=== PATIENT | male | born 1960 | race Caucasian/White ===

== ENCOUNTER → 2018-06-18 09:14 | Outpatient (CLI) | payer BC, SELFPAY ==
[2018-06-18 09:31] LABS: Abs Immature Grans 0.02 k/cumm (0.0-0.09); Absolute Basophil Count 0.05 k/cumm (0.0-0.2); Absolute Eosinophil Count 0.25 k/cumm (0.0-0.7); Absolute Lymphocyte Count 2.23 k/cumm (1.2-3.4); Absolute Monocyte Count 0.76 k/cumm (0.11-0.7); Absolute Neutrophil Count 4.66 k/cumm (1.2-6.7); Basophils % 0.6; Eosinophils % 3.1; HCT 37.9 % (40.0-50.0); Immature Grans % 0.3; Mean Corp. HGB Concentration 34.3 g/dL (32.0-36.0); Mean Corpuscular Hemoglobin 31.9 pg (27.0-33.0); Mean Corpuscular Volume 92.9 fL (80-95); Mean Platelet Volume 8.7 fL (8.0-11.0); Monocytes % 9.5; Neutrophils % 58.5; Platelet Count 311 x1000/uL (130-400); RBC 4.08 m/cumm (4.50-6.00); White Blood Cell Count 7.97 k/cumm (4.4-10.8)
[2018-06-18 10:28] LABS: Anion Gap 6.9 mmol/L (3-11); BUN 11 mg/dL (7-18); CO2 27.1 mmol/L (21.0-32.0); CREATININE 0.85 mg/dL (0.70-1.30); Calcium 8.3 mg/dL (8.5-10.1); Chloride 103 mmol/L (98-107); Glucose 103 mg/dL (70-100); Potassium 4.8 mmol/L (3.5-5.1); Sodium 137 mmol/L (136-145)
== END ==
PROVIDERS: PCP Student in an Organized Health Care Education/Training Program; Visit Provider Student in an Organized Health Care Education/Training Program
DX: I10 Essential (primary) hypertension (principal); K31.9 Disease of stomach and duodenum, unspecified; Z01.818 Encounter for other preprocedural examination
CPT/HCPCS: 36415; 80048; 85025

== ENCOUNTER → 2018-06-28 07:22 | Outpatient (REF) | payer BC, SELFPAY | LOC: LBN 07:22 | PROVIDERS: PCP Student in an Organized Health Care Education/Training Program; Visit Provider Student in an Organized Health Care Education/Training Program | DX: K31.9 Disease of stomach and duodenum, unspecified (principal); Z87.19 Personal history of other diseases of the digestive system | CPT/HCPCS: 82270 ==

== ENCOUNTER 2018-08-19 15:44 | Outpatient (CLI) | payer BC, SELFPAY ==
--- NOTE | 2018-08-19 15:40 | DI.RAD_ITS ---
SYMPTOM/DIAGNOSIS: WORSENING BACK PAIN, M54.5, PRE SURGICAL LUMBAR SPINE: AP, lateral and bilateral oblique views. There are five lumbar type vertebral bodies. There is a right convex curvature of the lower thoracic and lumbar spine. No spondylolysis or spondylolisthesis is seen. There is disc space narrowing at all levels of the lumbar spine. Vacuum discs are seen at L 1-2 and L 2-3. Degenerative changes of the facets are present. No acute fractures or subluxations are appreciated. There is calcification of the abdominal aorta noted. IMPRESSION: Moderately severe degenerative changes in the lumbar spine.
== END 2018-08-19 16:04 ==
PROVIDERS: PCP Student in an Organized Health Care Education/Training Program; Visit Provider Student in an Organized Health Care Education/Training Program
DX: M54.5 Low back pain (principal); M51.36 Other intervertebral disc degeneration, lumbar region; Z01.818 Encounter for other preprocedural examination
CPT/HCPCS: 72110

== ENCOUNTER 2018-10-11 08:30 | Emergency (ER) | payer BC, SELFPAY ==
[2018-10-11 08:47] VITALS: BP 138/79; PULSE 60; RESP 16; TEMP 37; O2SAT 98
--- NOTE | 2018-10-11 08:55 | DI.RAD_ITS ---
SYMPTOM/DIAGNOSIS: COUGH AND FEVER PA AND LATERAL CHEST: Comparison is made with 27 April 2015. Heart size is normal. The aorta appears normal in diameter. The lungs are clear. There are old left rib fractures. No infiltrate or effusion seen. IMPRESSION: No acute abnormality.
--- NOTE | 2018-10-11 08:58 | ED.GENADUL_ITS ---
Discharge Plan Disposition Patient Disposition: HOME Condition: Improving Discharge Details Chief Complaint: RespSymp Clinical Impression: Acute bronchitis with bronchospasm Primary Care Provider: Jaymie Ramirez ED Provider: Paul Marquez Home Meds and New Rx's Prescriptions: New prednisone 20 mg tablet 40 mg PO DAILY 5 Days Qty: 10 RF: 0 azithromycin 500 mg tablet See Label Instructions .ROUTE .COMPLEX Qty: 6 RF: 0 No Action cetirizine 10 MG tablet 10 mg PO DAILY PRNRF: 0 ibuprofen 200 MG capsule 800 mg PO Q4H PRN RF: 0 diphenhydramine HCl [Allergy (diphenhydramine)] 12.5 MG/5 ML liquid 12.5 mg PO DAILY Qty: 2 RF: 0 esomeprazole magnesium [Nexium 24HR] 20 MG tablet,delayed release (DR/EC) 20 mg PO DAILY RF: 0 albuterol sulfate [ProAir HFA] 8.5 GM HFA aerosol inhaler 2 puff Inhalation Q6H PRN Qty: 1 RF: 6 terazosin 2 MG capsule 4 mg PO HS Qty: 180 RF: 3 atorvastatin [Lipitor] 20 MG tablet 20 mg PO DAILY Qty: 90 RF: 3 sildenafil [Viagra] 100 MG tablet 100 mg PO DAILY PRNQty: 12 RF: 5 venlafaxine 75 MG tablet extended release 24hr 225 mg PO DAILY Qty: 90 RF: 3 lisinopril 20 MG tablet 20 mg PO DAILY Qty: 90 RF: 3 Discharge Instructions Instructions: Acute Bronchitis (ED) Additional Instructions: Home to rest. May continue your albuterol inhaler every 4 hours if needed, return if you are using it with increased frequency or develop shortness of breath. Please take medications as prescribed. Follow-up with regular doctor if not improving in 5 days time. Return to the emergency department for any acute concerns. Medical Decision Making 58-year-old male presents from home with 7-14 days of cough, congestion, some increased use of inhaler. He has noted subjective fever and chills. He denies chest pain. He states that he has otherwise recently been well. He arrives with normal vital signs, exam reveals wheeze and rhonchi throughout. Differential diagnosis includes pneumonia, exacerbation of reactive airway disease, bronchitis. Given DuoNeb and referred for chest XR. This does not reveal focal consolidation. Patient remains without acute complaint. His oxygenation is normal. I do feel benefit from a course of antibiotics to cover atypical pathogens as well as a burst of oral steroids. Discussed with him home management as well as return precautions HPI General Mode of arrival: ambulatory . Date/Time Provider Initiated Documentation: 10/11/18 08:51 . Limitations to Documentation: no limitations . Information obtained by: patient . History of Present Illness 58 year old M presents to the emergency department with the chief complaint of Cough, congestion, fever over days to week, described as moderate, Quality is described as dull, and is localized to the chest. Patient reports no radiation. Patient started experiencing this day(s) and it has been constant. No relieving factors improve symptom(s), No exacerbating factors reported . Patient notes fever/chills and other (Congestion). Patient did receive the following treatments prior to arrival, other (Albuterol inhale) Related Data Home Medications Medication Instructions Recorded Confirmed cetirizine 10 mg PO DAILY PRN tab-cap 04/26/14 10/11/18 ibuprofen 800 mg PO Q4H PRN tab-cap 09/10/16 10/11/18 diphenhydramine HCl [Allergy] 12.5 mg PO DAILY #2 05/14/17 10/11/18 esomeprazole magnesium [Nexium 20 mg PO DAILY 05/14/17 10/11/18 24hr] albuterol sulfate [Proair Hfa] 2 puff INHALATION Q6H PRN #1 puff 09/22/17 terazosin 4 mg PO HS #180 tab-cap 10/23/17 10/11/18 atorvastatin [Lipitor] 20 mg PO DAILY #90 tab 01/09/18 10/11/18 sildenafil [Viagra] 100 mg PO DAILY PRN #12 tab 01/19/18 10/11/18 venlafaxine 225 mg PO DAILY #90 tab-cap 05/11/18 10/11/18 lisinopril 20 mg PO DAILY #90 tab-cap 07/13/18 10/11/18 azithromycin See Label Instructions .ROUTE 10/11/18 .COMPLEX #6 tab prednisone 40 mg PO DAILY 5 Days #10 tab 10/11/18 Previous Rx's Medication Instructions Recorded albuterol sulfate [Proair Hfa] 2 puff INHALATION Q6H PRN #1 puff 09/22/17 terazosin 4 mg PO HS #180 tab-cap 10/23/17 atorvastatin [Lipitor] 20 mg PO DAILY #90 tab 01/09/18 venlafaxine 225 mg PO DAILY #90 tab-cap 05/11/18 lisinopril 20 mg PO DAILY #90 tab-cap 07/13/18 azithromycin See Label Instructions .ROUTE 10/11/18 .COMPLEX #6 tab prednisone 40 mg PO DAILY 5 Days #10 tab 10/11/18 Allergies Allergy/AdvReac Type Severity Reaction Status Date / Time Penicillins Allergy Intermediate rash Verified 08/19/18 15:11 General Stated Complaint: RespSymp MANINDER: 3 Review of Systems Review of Systems 6 systems reviewed and otherwise - [facility] Family History Mother No problems noted. Father No problems noted. Sister No problems noted. Sister No problems noted. Medical History ACL tear (03/30/14) Acne (04/12/09) Degenerative joint disease (04/12/09) Depression (11/20/05) Depressive disorder (10/22/10) Diverticula of colon (12/28/09) Erectile dysfunction (11/20/05) Head ache (03/17/01) Hyperlipidemia (03/17/01) Hyperplastic polyp of large intestine (09/17/06) Hypertension (05/26/09) Hypogonadism, male (11/20/05) Low back pain (04/24/09) Obesity (03/17/01) Peptic ulcer disease (08/17/02) Precancerous skin lesion (11/14/10) Tear of PCL (posterior cruciate ligament) of knee (03/30/14) Social History Smoking/Tobacco Use Status: Former Tobacco Use Surgical History Arthroplasty of knee (~2013) Cholecystectomy (11/12/06) Repair of umbilical hernia (08/31/10) Right small ginfer cyst (05/01/16) Vasectomy (04/28/07) cubital/carpal tunnel release (11/03/14) disc repair L4-5 (04/18/00) elbow repair right (09/17/07) left elbow fasciotomy (04/23/07) perianal fistula repair (09/25/10) tooth extraction (10/01/09) Exam Narrative Exam Narrative: GEN: awake, alert, oriented 3. Pleasant, well groomed, interactive. HEAD: Normocephalic, atraumatic ENT: Mucous membranes moist, oropharynx unremarkable, External ear exam unremarkable EYES: PERRL, EOMI NECK: Full ROM, no NIKOLAY, no menigismus CHEST/RESP: Nontender, bilateral end expiratory wheeze, cough noted, scant rhonchi left base CARDIOVASCULAR: RRR, no murmur, rub haley. 2+ Rad pulse bilateral ABDOMEN: Soft, nontender, no mass. +Bowel sounds EXT: Full ROM, no edema, no rash Neuro: Grossly normal neurologic exam, conversant, interactive. Psych: Speech fluent, thoughts congruent, affect normal Course Vital Signs Temperature 37.0 C 10/11/18 08:47 Pulse 60 10/11/18 08:47 Respiratory Rate 16 10/11/18 08:47 Blood Pressure 138/79 10/11/18 08:47 Pulse Oximetry 98 10/11/18 08:47 Temperature 37.0 C 10/11/18 08:47 Temperature Source Temporal Artery Scan 10/11/18 08:47 Pulse 60 10/11/18 08:47 Respiratory Rate 16 10/11/18 08:47 Respiratory Effort Non-Labored 10/11/18 08:49 Blood Pressure 138/79 10/11/18 08:47 Blood Pressure Position Sitting 10/11/18 08:47 Pulse Oximetry 98 10/11/18 08:47 Oxygen Delivery Method Room Air 10/11/18 08:47 Oxygen Flow Rate 0 10/11/18 08:47 Pain Level 6 10/11/18 08:47
[2018-10-11] MEDS: predniSONE 20 MG TAB 60 MG PO (09:03)
[2018-10-11 09:04] VITALS: PULSE 60; RESP 16; RESP 4; O2SAT 98
[2018-10-11] MEDS: Albuterol/Ipratropium 3 ML UPD VIAL UPD (09:04)
--- NOTE | 2018-10-11 09:18 | DI.VRAD_ITS ---
EXAM: XR Chest, 2 Views EXAM DATE/TIME: 10/11/2018 8:56 AM CLINICAL HISTORY: 58 years old, male; Signs and symptoms; Cough and fever TECHNIQUE: XR of the chest, 2 views. COMPARISON: CR ABD FLAT UPRIGHT PA CHEST 04/27/2015 11:12 AM FINDINGS: Lungs: COPD and mild interstitial prominence, without acute air space disease. Pleural space: No pleural effusion. Heart/Mediastinum: Normal configuration of the heart. Bones/joints: Mild degenerative change. When correlating with the previous study, no significant interval changes are present. IMPRESSION: COPD and mild interstitial prominence, without acute air space disease. Dictated and Authenticated by: Todd Mccain MD. Ordering:CLAUDIA TOTH MD
[2018-10-11 09:34] VITALS: PULSE 65; RESP 16; RESP 4; O2SAT 98
[2018-10-11] MEDS: Albuterol HFA 8 GM 60 PUFF INH IH (09:44)
[2018-10-11] MEDS: Inhaler, Assist Device 1 EACH MC (09:46)
== END 2018-10-11 09:37 | disposition home or self-care (01) ==
LOC: ER 09:27
PROVIDERS: Emergency Provider Emergency Medicine; PCP Student in an Organized Health Care Education/Training Program
DX: J20.9 Acute bronchitis, unspecified (principal); Z87.891 Personal history of nicotine dependence; I10 Essential (primary) hypertension
CPT/HCPCS: 94640; 99283; 71046; J7512; J7620

== ENCOUNTER 2018-12-21 01:08 | Outpatient (CLI) | payer BC, SELFPAY ==
--- NOTE | 2018-12-21 08:54 | DI.MRI_ITS ---
SYMPTOMS/DIAGNOSIS: LISTHESIS L2-3 AND L3-4, LOW BACK PAIN, M54.5, RADICULOPATHY, M54.16, MR3.10, BILATERAL LEG NUMBNESS, ? SPINAL STENOSIS MRI OF THE LUMBAR SPINE: T1, T2 and STIR sagittal, T1 coronal and T1 and T2 axial sequences were performed. Comparison is made with plain films dated August,, which showed severe degenerative disc changes, as well as scoliosis. There has been a previous fusion at L4-5. At L1-2, there is mild broad-based disc bulging. At L2-3, there are more prominent endplate osteophytes. There is left neural foraminal narrowing. At L3-4, there is a loss of disc height and prominent broad-based disc osteophytes. There are facet degenerative changes combined to produce moderate central canal stenosis. There is bilateral neural foraminal narrowing, left greater than right. At L4-5, there has been a previous disc fusion. There is mild bilateral neural foraminal narrowing but no central canal stenosis. There is mild disc bulging at L5-S1. IMPRESSION: Postsurgical and degenerative changes. There is central canal stenosis at L3-4 of moderate degree. No disc herniation is seen.
== END 2018-12-21 01:28 ==
PROVIDERS: PCP Student in an Organized Health Care Education/Training Program; Visit Provider Thoracic Surgery (Cardiothoracic Vascular Surgery)
DX: M54.5 Low back pain (principal); M54.16 Radiculopathy, lumbar region; R20.0 Anesthesia of skin; M48.061 Spinal stenosis, lumbar region without neurogenic claudication
CPT/HCPCS: 72148

== ENCOUNTER 2019-01-01 13:05 | Emergency (ER) | payer BC, SELFPAY ==
--- NOTE | 2019-01-01 13:06 | W.ED.GENAD ---
Discharge Plan Disposition Patient Disposition: HOME Condition: Stable Discharge Details Chief Complaint: RespSymp Clinical Impression: Reactive airway disease, Cough Primary Care Provider: Jaymie aRmirez ED Provider: Abelardo Dominique Home Meds and New Rx's Prescriptions: New prednisone 20 mg tablet 60 mg PO DAILY 5 Days Qty: 15 RF: 0 doxycycline hyclate 100 mg tablet 100 mg PO BID Qty: 14 RF: 0 Continued cetirizine 10 MG tablet 10 mg PO DAILY PRNRF: 0 ibuprofen 200 MG capsule 800 mg PO Q4H PRN RF: 0 diphenhydramine HCl [Allergy (diphenhydramine)] 12.5 MG/5 ML liquid 12.5 mg PO DAILY PRNQty: 2 RF: 0 Nexium 24HR 20 MG tablet,delayed release (DR/EC) 20 mg PO DAILY RF: 0 ProAir HFA 8.5 GM HFA aerosol inhaler 2 puff Inhalation Q6H PRN Qty: 1 RF: 6 atorvastatin [Lipitor] 20 MG tablet 20 mg PO DAILY Qty: 90 RF: 3 sildenafil [Viagra] 100 MG tablet 100 mg PO DAILY PRNQty: 12 RF: 5 lisinopril 20 MG tablet 20 mg PO DAILY Qty: 90 RF: 3 terazosin 2 mg capsule 4 mg PO HS Qty: 180 RF: 3 venlafaxine 75 mg tablet extended release 24hr 225 mg PO DAILY Qty: 90 RF: 3 Discharge Instructions Additional Instructions: You are being treated with steroids and an antibiotic for possible infection. If this doesn't clear your cough in a week you should follow up with your primary care provider to discuss changing your lisinopril. If you feel you are having significant worsening breathing, are feeling significantly more ill or have new symptoms such as high fevers or abdominal pain Medical Decision Making 58 yo male with hx of reactive airway disease, former smoker, htn, hld, who comes in with complaint of cough. He states he was seen here in September with cough and did improve slightly with a z pack per pt. He has had a lingering cough and feels it worsened in the past few dyas. No known fevers, no travel. He has pain with palpation to right anterior chest otherwise no chest pain, no diaphoresis or n/v. On exam he appears well in no distress speaking in full sentences. He has mild wheezing at the bases bilaterally otherwise clear lungs. He is on lisinopril so this could be causing his lingering cough. Given his wheezing I will tx as possible copd exacerbation given his smoking hx and advised he f/u with pcp if not better in a week and discuss changing the lisinopril. He was given return precautions. Given well appearance and no fever do not feel labs or imaging indicated Differential Diagnosis copd, asthma, bronchitis, lisinopril cough HPI General Mode of arrival: ambulatory. Date/Time Provider Initiated Documentation: 01/01/19 13:06. Limitations to Documentation: no limitations. Information obtained by: patient. History of Present Illness 58 year old M presents to the emergency department with the chief complaint of cough, described as moderate, Patient started experiencing this month(s) (3) and it has been constant. No relieving factors improve symptom(s), No exacerbating factors reported . Patient notes no other symptoms.. Patient did receive the following treatments prior to arrival, none Related Data Home Medications Medication Instructions Recorded Confirmed cetirizine 10 mg PO DAILY PRN tab-cap 04/26/14 01/01/19 ibuprofen 800 mg PO Q4H PRN tab-cap 09/10/16 01/01/19 Nexium 24HR 20 mg PO DAILY 05/14/17 01/01/19 diphenhydramine HCl [Allergy 12.5 mg PO DAILY PRN #2 05/14/17 01/01/19 (diphenhydramine)] ProAir HFA 2 puff INHALATION Q6H PRN #1 puff 09/22/17 01/01/19 atorvastatin [Lipitor] 20 mg PO DAILY #90 tab 01/09/18 01/01/19 sildenafil [Viagra] 100 mg PO DAILY PRN #12 tab 01/19/18 10/11/18 lisinopril 20 mg PO DAILY #90 tab-cap 07/13/18 01/01/19 terazosin 2 mg capsule 4 mg PO HS #180 tab-cap 12/04/18 01/01/19 venlafaxine ER 75 mg 225 mg PO DAILY #90 tab-cap 12/04/18 01/01/19 tablet,extended release 24 hr doxycycline hyclate 100 mg PO BID #14 tab 01/01/19 prednisone 60 mg PO DAILY 5 Days #15 tab 01/01/19 Previous Rx's Medication Instructions Recorded ProAir HFA 2 puff INHALATION Q6H PRN #1 puff 09/22/17 atorvastatin [Lipitor] 20 mg PO DAILY #90 tab 01/09/18 lisinopril 20 mg PO DAILY #90 tab-cap 07/13/18 terazosin 2 mg capsule 4 mg PO HS #180 tab-cap 12/04/18 venlafaxine ER 75 mg 225 mg PO DAILY #90 tab-cap 12/04/18 tablet,extended release 24 hr doxycycline hyclate 100 mg PO BID #14 tab 01/01/19 prednisone 60 mg PO DAILY 5 Days #15 tab 01/01/19 Allergies Allergy/AdvReac Type Severity Reaction Status Date / Time Penicillins Allergy Intermediate rash Verified 01/01/19 13:13 General MANINDER: 3 Review of Systems Review of Systems All systems reviewed & are unremarkable except as noted in HPI and below Constitutional Denies weakness ENT Denies change in voice Cardiovascular Denies dyspnea Respiratory Denies dyspnea Gastrointestinal Denies abdominal pain, Denies nausea and Denies vomiting Genitourinary Denies dysuria Musculoskeletal Denies joint swelling Integumentary/Breasts Denies rash Neurologic Denies weakness Endocrine Denies heat intolerance Allergic/Immunologic Denies urticaria [facility] Medical History ACL tear (03/30/14) Acne (04/12/09) Degenerative joint disease (04/12/09) Depression (11/20/05) Depressive disorder (10/22/10) Diverticula of colon (12/28/09) Erectile dysfunction (11/20/05) Head ache (03/17/01) Hyperlipidemia (03/17/01) Hyperplastic polyp of large intestine (09/17/06) Hypertension (05/26/09) Hypogonadism, male (11/20/05) Low back pain (04/24/09) Obesity (03/17/01) Peptic ulcer disease (08/17/02) Precancerous skin lesion (11/14/10) Tear of PCL (posterior cruciate ligament) of knee (03/30/14) Surgical History Arthroplasty of knee (~2013) Cholecystectomy (11/12/06) Repair of umbilical hernia (10/15/10) Right small ginfer cyst (05/01/16) Vasectomy (04/28/07) cubital/carpal tunnel release (11/03/14) disc repair L4-5 (04/18/00) elbow repair right (09/17/07) left elbow fasciotomy (04/23/07) perianal fistula repair (09/25/10) tooth extraction (10/01/09) Family History Mother No problems noted. Father No problems noted. Sister No problems noted. Sister No problems noted. Social History Smoking and Tabacco status: Former Tobacco Use Exam Const General: no acute distress Orientation: alert HENMT Head: normal to inspection Ears: external ears normal General nose exam: external nose normal Mouth: moist mucous membranes Eyes General: appearance normal, both eyes and all related structures Neck Neck: normal visual inspection Resp Effort & Inspection: normal respiratory effort and able to speak in complete sentences Cardio Rate: regular rate Skin General skin exam: no rashes or lesions noted Neuro General: alert and oriented x3 Extrem General: normal to inspection Psych Mental Status: mental status grossly normal
[2019-01-01 13:08] VITALS: BP 132/91; PULSE 77; RESP 16; TEMP 37; O2SAT 97
--- NOTE | 2019-01-01 13:26 | ED.GENADUL_ITS ---
Discharge Plan Disposition Patient Disposition: HOME Condition: Stable Discharge Details Chief Complaint: RespSymp Clinical Impression: Reactive airway disease, Cough Primary Care Provider: Jaymie Ramirez ED Provider: Abelardo Dominique Home Meds and New Rx's Prescriptions: New prednisone 20 mg tablet 60 mg PO DAILY 5 Days Qty: 15 RF: 0 doxycycline hyclate 100 mg tablet 100 mg PO BID Qty: 14 RF: 0 Continued cetirizine 10 MG tablet 10 mg PO DAILY PRNRF: 0 ibuprofen 200 MG capsule 800 mg PO Q4H PRN RF: 0 diphenhydramine HCl [Allergy (diphenhydramine)] 12.5 MG/5 ML liquid 12.5 mg PO DAILY PRNQty: 2 RF: 0 Nexium 24HR 20 MG tablet,delayed release (DR/EC) 20 mg PO DAILY RF: 0 ProAir HFA 8.5 GM HFA aerosol inhaler 2 puff Inhalation Q6H PRN Qty: 1 RF: 6 atorvastatin [Lipitor] 20 MG tablet 20 mg PO DAILY Qty: 90 RF: 3 sildenafil [Viagra] 100 MG tablet 100 mg PO DAILY PRNQty: 12 RF: 5 lisinopril 20 MG tablet 20 mg PO DAILY Qty: 90 RF: 3 terazosin 2 mg capsule 4 mg PO HS Qty: 180 RF: 3 venlafaxine 75 mg tablet extended release 24hr 225 mg PO DAILY Qty: 90 RF: 3 Discharge Instructions Additional Instructions: You are being treated with steroids and an antibiotic for possible infection. If this doesn't clear your cough in a week you should follow up with your primary care provider to discuss changing your lisinopril. If you feel you are having significant worsening breathing, are feeling significantly more ill or have new symptoms such as high fevers or abdominal pain Medical Decision Making 58 yo male with hx of reactive airway disease, former smoker, htn, hld, who comes in with complaint of cough. He states he was seen here in September with cough and did improve slightly with a z pack per pt. He has had a lingering cough and feels it worsened in the past few dyas. No known fevers, no travel. He has pain with palpation to right anterior chest otherwise no chest pain, no diaphoresis or n/v. On exam he appears well in no distress speaking in full sentences. He has mild wheezing at the bases bilaterally otherwise clear lungs. He is on lisinopril so this could be causing his lingering cough. Given his wheezing I will tx as possible copd exacerbation given his smoking hx and advised he f/u with pcp if not better in a week and discuss changing the lisinopril. He was given return precautions. Given well appearance and no fever do not feel labs or imaging indicated Differential Diagnosis copd, asthma, bronchitis, lisinopril cough HPI General Mode of arrival: ambulatory . Date/Time Provider Initiated Documentation: 01/01/19 13:06 . Limitations to Documentation: no limitations . Information obtained by: patient . History of Present Illness 58 year old M presents to the emergency department with the chief complaint of cough, described as moderate, Patient started experiencing this month(s) (3) and it has been constant. No relieving factors improve symptom(s), No exacerbating factors reported . Patient notes no other symptoms.. Patient did receive the following treatments prior to arrival, none Related Data Home Medications Medication Instructions Recorded Confirmed cetirizine 10 mg PO DAILY PRN tab-cap 04/26/14 01/01/19 ibuprofen 800 mg PO Q4H PRN tab-cap 09/10/16 01/01/19 Nexium 24HR 20 mg PO DAILY 05/14/17 01/01/19 diphenhydramine HCl [Allergy 12.5 mg PO DAILY PRN #2 05/14/17 01/01/19 (diphenhydramine)] ProAir HFA 2 puff INHALATION Q6H PRN #1 puff 09/22/17 01/01/19 atorvastatin [Lipitor] 20 mg PO DAILY #90 tab 01/09/18 01/01/19 sildenafil [Viagra] 100 mg PO DAILY PRN #12 tab 01/19/18 10/11/18 lisinopril 20 mg PO DAILY #90 tab-cap 07/13/18 01/01/19 terazosin 2 mg capsule 4 mg PO HS #180 tab-cap 12/04/18 01/01/19 venlafaxine ER 75 mg 225 mg PO DAILY #90 tab-cap 12/04/18 01/01/19 tablet,extended release 24 hr doxycycline hyclate 100 mg PO BID #14 tab 01/01/19 prednisone 60 mg PO DAILY 5 Days #15 tab 01/01/19 Previous Rx's Medication Instructions Recorded ProAir HFA 2 puff INHALATION Q6H PRN #1 puff 09/22/17 atorvastatin [Lipitor] 20 mg PO DAILY #90 tab 01/09/18 lisinopril 20 mg PO DAILY #90 tab-cap 07/13/18 terazosin 2 mg capsule 4 mg PO HS #180 tab-cap 12/04/18 venlafaxine ER 75 mg 225 mg PO DAILY #90 tab-cap 12/04/18 tablet,extended release 24 hr doxycycline hyclate 100 mg PO BID #14 tab 01/01/19 prednisone 60 mg PO DAILY 5 Days #15 tab 01/01/19 Allergies Allergy/AdvReac Type Severity Reaction Status Date / Time Penicillins Allergy Intermediate rash Verified 01/01/19 13:13 General MANINDER: 3 Review of Systems Review of Systems All systems reviewed & are unremarkable except as noted in HPI and below Constitutional Denies weakness ENT Denies change in voice Cardiovascular Denies dyspnea Respiratory Denies dyspnea Gastrointestinal Denies abdominal pain, Denies nausea and Denies vomiting Genitourinary Denies dysuria Musculoskeletal Denies joint swelling Integumentary/Breasts Denies rash Neurologic Denies weakness Endocrine Denies heat intolerance Allergic/Immunologic Denies urticaria [facility] Medical History ACL tear (03/30/14) Acne (04/12/09) Degenerative joint disease (04/12/09) Depression (11/20/05) Depressive disorder (10/22/10) Diverticula of colon (12/28/09) Erectile dysfunction (11/20/05) Head ache (03/17/01) Hyperlipidemia (03/17/01) Hyperplastic polyp of large intestine (09/17/06) Hypertension (05/26/09) Hypogonadism, male (11/20/05) Low back pain (04/24/09) Obesity (03/17/01) Peptic ulcer disease (08/17/02) Precancerous skin lesion (11/14/10) Tear of PCL (posterior cruciate ligament) of knee (03/30/14) Surgical History Arthroplasty of knee (~2013) Cholecystectomy (11/12/06) Repair of umbilical hernia (10/15/10) Right small ginfer cyst (05/01/16) Vasectomy (04/28/07) cubital/carpal tunnel release (11/03/14) disc repair L4-5 (04/18/00) elbow repair right (09/17/07) left elbow fasciotomy (04/23/07) perianal fistula repair (09/25/10) tooth extraction (10/01/09) Family History Mother No problems noted. Father No problems noted. Sister No problems noted. Sister No problems noted. Social History Smoking and Tabacco status: Former Tobacco Use Exam Const General: no acute distress Orientation: alert HENMT Head: normal to inspection Ears: external ears normal General nose exam: external nose normal Mouth: moist mucous membranes Eyes General: appearance normal, both eyes and all related structures Neck Neck: normal visual inspection Resp Effort & Inspection: normal respiratory effort and able to speak in complete sentences Cardio Rate: regular rate Skin General skin exam: no rashes or lesions noted Neuro General: alert and oriented x3 Extrem General: normal to inspection Psych Mental Status: mental status grossly normal
--- NOTE | 2019-01-04 09:28 | PDOC.ERCMPRO ---
Care Management Progress Note 01/04-Dr. Dominique requested assistance with a PCP (Jena) f/u in 1-2 weeks for cough. Referral faxed to [facility] this am.
== END 2019-01-01 13:36 | disposition home or self-care (01) ==
PROVIDERS: Emergency Provider Emergency Medicine; PCP Student in an Organized Health Care Education/Training Program
DX: R05 Cough (principal); J45.909 Unspecified asthma, uncomplicated; R07.89 Other chest pain; I10 Essential (primary) hypertension; Z87.891 Personal history of nicotine dependence
CPT/HCPCS: 99283

== ENCOUNTER 2019-02-04 09:23 | Outpatient (CLI) | payer BC, SELFPAY ==
[2019-02-04 11:45] LABS: ALT 36 U/L (12-78); AST 26 U/L (15-37); Albumin 3.9 g/dL (3.4-5.0); Alkaline Phosphatase 108 U/L (46-116); Anion Gap 7.8 mmol/L (3-11); BUN 12 mg/dL (7-18); Bilirubin, Total 0.4 mg/dL (0.2-1.0); CO2 29.2 mmol/L (21.0-32.0); Calcium 9.6 mg/dL (8.5-10.1); Chloride 99 mmol/L (98-107); Cholesterol 159 mg/dL (50-200); Glucose 110 mg/dL (70-100); HDL Cholesterol 40 mg/dL (40-60); LDL CHOLESTEROL 106 mg/dL (<100); Potassium 4.7 mmol/L (3.5-5.1); Sodium 136 mmol/L (136-145); Total Protein 7.5 g/dL (6.4-8.2); Triglyceride 64 mg/dL (30-150)
== END 2019-02-04 09:43 ==
PROVIDERS: PCP Student in an Organized Health Care Education/Training Program; Visit Provider Student in an Organized Health Care Education/Training Program
DX: Z13.220 Encounter for screening for lipoid disorders (principal); K71.9 Toxic liver disease, unspecified
CPT/HCPCS: 36415; 80053; 80061; 83721

== ENCOUNTER 2019-02-08 09:47 | Emergency (ER) | payer BC, SELFPAY ==
[2019-02-08 09:49] VITALS: BP 118/72; PULSE 88; RESP 18; TEMP 36; O2SAT 96
--- NOTE | 2019-02-08 10:20 | ED.GENADUL_ITS ---
Discharge Plan Disposition Patient Disposition: HOME Condition: Stable Discharge Details Chief Complaint: RespSymp Clinical Impression: Wheezing, URI (upper respiratory infection) Primary Care Provider: Jaymie Ramirez ED Provider: Abelardo Dominique Home Meds and New Rx's Prescriptions: New prednisone 20 mg tablet 60 mg PO DAILY Qty: 15 RF: 0 albuterol sulfate 90 mcg/actuation HFA aerosol inhaler 2 puff IH QID PRN (Reason: shortness of breath) Qty: 18 RF: 0 Continued cetirizine 10 MG tablet 10 mg PO DAILY PRNRF: 0 ibuprofen 200 MG capsule 800 mg PO Q4H PRN RF: 0 diphenhydramine HCl [Allergy (diphenhydramine)] 12.5 MG/5 ML liquid 12.5 mg PO DAILY PRNQty: 2 RF: 0 Nexium 24HR 20 MG tablet,delayed release (DR/EC) 20 mg PO DAILY RF: 0 ProAir HFA 8.5 GM HFA aerosol inhaler 2 puff Inhalation Q6H PRN Qty: 1 RF: 6 sildenafil [Viagra] 100 MG tablet 100 mg PO DAILY PRNQty: 12 RF: 5 lisinopril 20 MG tablet 20 mg PO DAILY Qty: 90 RF: 3 terazosin 2 mg capsule 4 mg PO HS Qty: 180 RF: 3 venlafaxine 75 mg tablet extended release 24hr 225 mg PO DAILY Qty: 90 RF: 3 atorvastatin [Lipitor] 20 mg tablet 20 mg PO DAILY Qty: 90 RF: 3 doxycycline hyclate 100 mg tablet 100 mg PO BID Qty: 14 RF: 0 Discharge Instructions Instructions: Wheezing (ED) Additional Instructions: follow up with your primary care provider as scheduled next week If you have worsening shortness of breath despite the medications or feel more ill return to the emergency department for reeassement Medical Decision Making 58 yo male who is a former smoker and not diagnosed with copd, who comes in with cough for a few days and subjective fevers. Denies chest pain, recent travel or n/v. He is speaking in full sentences on exam in no distress. He has no pedal edema or jvd to suggest chf. HE has diffuse wheezing on expiration on exam that is likely from RAD and suspect he has undiagnosed copd. Given well appearance and normal vitals doubt pna and do not feel xray indicated. Will tx with neb, steroids and given increased productive cough as well tx with abx pt feels much better and wheezing as resolved on repeat exam. Will d/c home, advised f/u with pcp and return precautions given Differential Diagnosis copd, uri, influenza HPI General Mode of arrival: ambulatory . Date/Time Provider Initiated Documentation: 02/08/19 10:06 . Limitations to Documentation: no limitations . Information obtained by: patient . History of Present Illness 58 year old M presents to the emergency department with the chief complaint of cough, described as moderate, Patient started experiencing this day(s) (2) and it has been constant. No relieving factors improve symptom(s), No exacerbating factors reported . Patient did receive the following treatments prior to arrival, none Related Data Home Medications Medication Instructions Recorded Confirmed cetirizine 10 mg PO DAILY PRN tab-cap 04/26/14 01/01/19 ibuprofen 800 mg PO Q4H PRN tab-cap 09/10/16 01/01/19 Nexium 24HR 20 mg PO DAILY 05/14/17 01/01/19 diphenhydramine HCl [Allergy 12.5 mg PO DAILY PRN #2 05/14/17 01/01/19 (diphenhydramine)] ProAir HFA 2 puff INHALATION Q6H PRN #1 puff 09/22/17 01/01/19 sildenafil [Viagra] 100 mg PO DAILY PRN #12 tab 01/19/18 10/11/18 lisinopril 20 mg PO DAILY #90 tab-cap 07/13/18 01/01/19 terazosin 2 mg capsule 4 mg PO HS #180 tab-cap 12/04/18 01/01/19 venlafaxine ER 75 mg 225 mg PO DAILY #90 tab-cap 12/04/18 01/01/19 tablet,extended release 24 hr atorvastatin 20 mg tablet 20 mg PO DAILY #90 tab 01/25/19 albuterol sulfate 2 puff IH QID PRN #18 gm 02/08/19 doxycycline hyclate 100 mg PO BID #14 tab 02/08/19 prednisone 60 mg PO DAILY #15 tab 02/08/19 Previous Rx's Medication Instructions Recorded ProAir HFA 2 puff INHALATION Q6H PRN #1 puff 09/22/17 lisinopril 20 mg PO DAILY #90 tab-cap 07/13/18 terazosin 2 mg capsule 4 mg PO HS #180 tab-cap 12/04/18 venlafaxine ER 75 mg 225 mg PO DAILY #90 tab-cap 12/04/18 tablet,extended release 24 hr atorvastatin 20 mg tablet 20 mg PO DAILY #90 tab 01/25/19 albuterol sulfate 2 puff IH QID PRN #18 gm 02/08/19 doxycycline hyclate 100 mg PO BID #14 tab 02/08/19 prednisone 60 mg PO DAILY #15 tab 02/08/19 Allergies Allergy/AdvReac Type Severity Reaction Status Date / Time Penicillins Allergy Intermediate rash Verified 01/01/19 13:13 General Stated Complaint: RespSymp MANINDER: 3 Review of Systems Review of Systems All systems reviewed & are unremarkable except as noted in HPI and below ENT Denies change in voice Cardiovascular Denies chest pain and Denies dyspnea Respiratory Denies dyspnea Gastrointestinal Denies abdominal pain, Denies nausea and Denies vomiting Genitourinary Denies dysuria Musculoskeletal Denies joint swelling Integumentary/Breasts Denies rash [facility] Social History Smoking/Tobacco Use Status: Former Tobacco Use Alcohol Intake: former Drug use: Current Sobriety Substance use type: does not use Do you feel safe at home: Yes Do you feel safe in your relationship?: Yes Additional Social history: quit smoking 11 years ago quit drinking 25 yrs ago Exam Const General: no acute distress Orientation: alert HENMT Head: normal to inspection Ears: external ears normal General nose exam: external nose normal Mouth: moist mucous membranes Eyes General: appearance normal, both eyes and all related structures Neck Neck: normal visual inspection Resp Effort & Inspection: normal respiratory effort and able to speak in complete sentences Cardio Rate: regular rate Skin General skin exam: no rashes or lesions noted Neuro General: alert and oriented x3 Extrem General: normal to inspection Psych Mental Status: mental status grossly normal Course Vital Signs Temperature 36.0 C L 02/08/19 09:49 Pulse 88 02/08/19 09:49 Respiratory Rate 18 02/08/19 09:49 Blood Pressure 118/72 02/08/19 09:49 Pulse Oximetry 96 02/08/19 09:49 Temperature 36.0 C L 02/08/19 09:49 Temperature Source Skin 02/08/19 09:49 Pulse 88 02/08/19 09:49 Respiratory Rate 18 02/08/19 09:49 Respiratory Effort 02/08/19 09:55 Blood Pressure 118/72 02/08/19 09:49 Blood Pressure Position Sitting 02/08/19 09:49 Pulse Oximetry 96 02/08/19 09:49 Oxygen Delivery Method Room Air 02/08/19 09:49 Oxygen Flow Rate 0 02/08/19 09:49 Pain Level 7 02/08/19 09:49
[2019-02-08] MEDS: Albuterol/Ipratropium 3 ML UPD VIAL UPD (10:40)
[2019-02-08] MEDS: predniSONE 20 MG TAB 60 MG PO (10:41)
== END 2019-02-08 11:18 | disposition home or self-care (01) ==
PROVIDERS: Emergency Provider Emergency Medicine; PCP Student in an Organized Health Care Education/Training Program
DX: R06.2 Wheezing (principal); J06.9 Acute upper respiratory infection, unspecified; J44.9 Chronic obstructive pulmonary disease, unspecified; Z87.891 Personal history of nicotine dependence
CPT/HCPCS: 99283; J7512; J7620

== ENCOUNTER 2019-07-25 10:19 | Emergency (ER) | payer MEDICARE, BC, SELFPAY ==
[2019-07-25 10:27] VITALS: BP 122/74; PULSE 73; RESP 16; TEMP 36.3; O2SAT 99
--- NOTE | 2019-07-25 10:27 | W.ED.GENAD ---
Discharge Plan Disposition Patient Disposition: HOME Discharge Details Chief Complaint: RashLesion Clinical Impression: Incisional infection Primary Care Provider: Jaymie Ramirez ED Provider: Matthias Wang Home Meds and New Rx's Prescriptions: New cephalexin 500 mg capsule 500 mg PO QID Qty: 20 RF: 0 Continued lisinopril 20 mg tablet 20 mg PO DAILY Qty: 90 RF: 3 terazosin 2 mg capsule 4 mg PO HS RF: 0 turmeric 400 mg capsule PO RF: 0 sildenafil [Viagra] 100 mg tablet 100 mg PO DAILY PRN (Reason: sexual activity) Qty: 12 RF: 3 Flovent HFA 110 mcg/actuation HFA aerosol inhaler 1 puff IH BID Qty: 12 RF: 0 guaifenesin 600 mg tablet extended release 12hr 600 mg PO Q12H Qty: 60 RF: 2 fluticasone propionate 50 mcg/actuation spray,suspension 2 spray DAVID DAILY Qty: 16 RF: 3 benzonatate 200 mg capsule 200 mg PO BID PRN (Reason: cough) Qty: 90 RF: 1 cetirizine 10 MG tablet 10 mg PO DAILY PRNRF: 0 ibuprofen 200 MG capsule 800 mg PO Q4H PRN RF: 0 diphenhydramine HCl [Allergy (diphenhydramine)] 12.5 MG/5 ML liquid 12.5 mg PO DAILY PRNQty: 2 RF: 0 Nexium 24HR 20 MG tablet,delayed release (DR/EC) 20 mg PO DAILY RF: 0 atorvastatin [Lipitor] 20 mg tablet 20 mg PO DAILY Qty: 90 RF: 3 venlafaxine 75 mg tablet extended release 24hr 225 mg PO DAILY Qty: 90 RF: 3 albuterol sulfate 90 mcg/actuation HFA aerosol inhaler 2 puff IH QID PRN (Reason: shortness of breath) Qty: 18 RF: 0 Discharge Instructions Instructions: Wound Infection (ED) Additional Instructions: Take the antibiotics as prescribed. Check in with the neurosurgery team later today to let them know how it is going. Return to the emergency department immediately if you develop any fevers, weakness, numbness or for any other concerning or worsening symptoms at all. Try to avoid any unnecessary movements today. The stitches will need to be removed. Discuss this with your neurosurgery team. Referrals: Jaymie Ramirez DO [Primary Care Provider] - Dalia Dobson [ [facility] ST[facility]FF PHYSICIAN] - Medical Decision Making This patient is a 59-year-old male who presents to the emergency department with fluid leaking from his incision site on his lumbar spine. Based on the history, exam, most concerning would be cerebral spinal fluid leak. Seroma is also a possibility. It does not appear to be infected at this time. However, a deeper abscess is possible. I spoke with the on-call physician produce assistant for the neurosurgeon, Dr. Dobson. She recommended placing Prolene stitches to try to stop the fluid leak, starting the patient on cephalexin and having him to do minimal activity over the next 24 to 48 hours. 3 stitches were placed which seemed to stop the fluid from leaking. She did strongly recommend no anesthesia for this as it may then communicate with CSF if this is a CSF leak. Patient will be discharged home, he will follow-up with his neurosurgery team tomorrow or even later today if it is not getting better. Patient was given strict return precautions and discharge instructions and agrees with the outpatient treatment plan. HPI My wound is leaking. This patient is a 59-year-old male who presents to the emergency department with chief complaint of leaking from his lumbar spine wound. 5 days ago he had lumbar spine surgery. Today when he got up, he noticed that it was leaking fluid. He spoke with the on-call provider at his neurosurgery clinic where he had surgery and they told him to come to the emergency department. He denies any fevers. No other recent illness, no numbness or tingling. Nothing has made it better or worse. General Date/Time Provider Initiated Documentation: 07/25/19 10:25. Related Data Home Medications Medication Instructions Recorded Confirmed cetirizine 10 mg PO DAILY PRN tab-cap 04/26/14 07/25/19 ibuprofen 800 mg PO Q4H PRN tab-cap 09/10/16 07/25/19 Nexium 24HR 20 mg PO DAILY 05/14/17 07/25/19 diphenhydramine HCl [Allergy 12.5 mg PO DAILY PRN #2 05/14/17 07/25/19 (diphenhydramine)] atorvastatin 20 mg tablet 20 mg PO DAILY #90 tab 01/25/19 07/25/19 albuterol sulfate 2 puff IH QID PRN #18 gm 02/08/19 07/25/19 fluticasone propionate 110 1 puff IH BID #12 gm 02/18/19 07/25/19 mcg/actuation HFA aerosol inhaler sildenafil 100 mg tablet 100 mg PO DAILY PRN #12 tab 02/18/19 07/25/19 terazosin 2 mg capsule 4 mg PO HS tab-cap 02/18/19 07/25/19 turmeric 400 mg capsule mg PO cap 02/18/19 06/25/19 benzonatate 200 mg capsule 200 mg PO BID PRN #90 cap 03/05/19 07/25/19 fluticasone propionate 50 2 spray DAVID DAILY #16 gm 03/05/19 07/25/19 mcg/actuation nasal spray,suspension guaifenesin 600 mg tablet, 600 mg PO Q12H #60 tab 03/05/19 07/25/19 extended release 12 hr lisinopril 20 mg tablet 20 mg PO DAILY #90 tab-cap 03/31/19 07/25/19 venlafaxine 75 mg tablet,extended 225 mg PO DAILY #90 tab-cap 07/23/19 07/25/19 release 24 hr cephalexin 500 mg PO QID #20 cap 07/25/19 Previous Rx's Medication Instructions Recorded atorvastatin 20 mg tablet 20 mg PO DAILY #90 tab 01/25/19 albuterol sulfate 2 puff IH QID PRN #18 gm 02/08/19 fluticasone propionate 110 1 puff IH BID #12 gm 02/18/19 mcg/actuation HFA aerosol inhaler sildenafil 100 mg tablet 100 mg PO DAILY PRN #12 tab 02/18/19 benzonatate 200 mg capsule 200 mg PO BID PRN #90 cap 03/05/19 fluticasone propionate 50 2 spray DAVID DAILY #16 gm 03/05/19 mcg/actuation nasal spray,suspension guaifenesin 600 mg tablet, 600 mg PO Q12H #60 tab 03/05/19 extended release 12 hr lisinopril 20 mg tablet 20 mg PO DAILY #90 tab-cap 03/31/19 venlafaxine 75 mg tablet,extended 225 mg PO DAILY #90 tab-cap 07/23/19 release 24 hr cephalexin 500 mg PO QID #20 cap 07/25/19 Allergies Allergy/AdvReac Type Severity Reaction Status Date / Time Penicillins Allergy Intermediate rash Verified 07/25/19 10:33 General MANINDER: 3 Review of Systems Review of Systems Gen: no fevers. Card: no chest pain. Resp: No cough, difficulty breathing. Abd: no vomiting, abd pain. The rest of the 10 point review of systems is negative except as described in the HPI and above in the ROS. [facility] Medical History ACL tear (03/30/14) Acne (04/12/09) Degenerative joint disease (04/12/09) 04/11/17 Sacroiliac joint injection[facility] Depression (11/20/05) Depressive disorder (10/22/10) Diverticula of colon (12/28/09) Erectile dysfunction (11/20/05) Head ache (03/17/01) Hyperlipidemia (03/17/01) Hyperplastic polyp of large intestine (09/17/06) Hypertension (05/26/09) Hypogonadism, male (11/20/05) Low back pain (04/24/09) 02/07/17 [facility] lumbar spondylosis Obesity (03/17/01) Peptic ulcer disease (08/17/02) Precancerous skin lesion (11/14/10) lower lip Tear of PCL (posterior cruciate ligament) of knee (03/30/14) Surgical History Arthroplasty of knee (~2013) partial lateral meniscectomy Cholecystectomy (11/12/06) Lap [facility] cubital/carpal tunnel release (11/03/14) R side Dr Walker disc repair L4-5 (04/18/00) Dr Olson elbow repair right (09/17/07) left elbow fasciotomy (04/23/07) perianal fistula repair (09/25/10) Repair of umbilical hernia (08/31/10) Right small ginfer cyst (05/01/16) [place] extraction (10/01/09) upper teeth Vasectomy (04/28/07) Family History Mother No problems noted. Father No problems noted. Sister No problems noted. Sister No problems noted. Social History Smoking/Tobacco Use Status: Former Tobacco Use Alcohol Intake: former Drug use: Current Sobriety Substance use type: does not use Do you feel safe at home: Yes Do you feel safe in your relationship?: Yes Additional Social history: quit smoking 11 years ago quit drinking 25 yrs ago Exam Narrative Exam Narrative: Gen: no acute distress, alert. Lung: no respiratory distress. Abd: soft, non-tender, no hepatosplenomegaly. Neuro: speech normal, no gross motor deficits. Psych: alert and oriented to person, place time, normal affect. Skin: warm, dry. Back: there is a 6 cm incision over the lumbar spine and is draining serosangious fluid in three spots, mild tenderness overlying the inicison, no surroudning erythema.
[2019-07-25] MEDS: Cephalexin 500 MG CAP PO (11:01)
[2019-07-25 11:34] VITALS: BP 122/74; PULSE 73; RESP 16; TEMP 36.5; O2SAT 99
== END 2019-07-25 11:22 | disposition home or self-care (01) ==
PROVIDERS: Emergency Provider Emergency Medicine; PCP Student in an Organized Health Care Education/Training Program
DX: T81.41XA Infection following a procedure, superficial incisional surgical site, initial encounter (principal); L08.89 Other specified local infections of the skin and subcutaneous tissue; Y83.1 Surgical operation with implant of artificial internal device as the cause of abnormal reaction of the patient, or of later complication, without mention of misadventure at the time of the procedure; I10 Essential (primary) hypertension
CPT/HCPCS: 12002; 80053; 85025; 86140

== ENCOUNTER 2020-01-25 10:57 | Outpatient (CLI) | payer MEDICARE, BC, SELFPAY ==
--- NOTE | 2020-01-25 14:45 | DI.CTLCSR_ITS ---
EXAM: CT CHEST LUNG CANCER SCREEN CLINICAL HISTORY: THE PATIENT REPORTEDLY HAS A HISTORY OF SMOKING 30 PACK YEARS AND PRESENTLY SMOKES OR HAS QUIT THE PAST 15 YEARS. TECHNIQUE: Imaging Protocol: Axial computed tomography images with coronal and sagittal reformatted images were created and reviewed COMPARISON: No exams were available for comparison FINDINGS: Tracheobronchial tree: Patent where visualized. Mediastinum and Kelley: No dominant adenopathy or fluid collection. Pulmonary parenchyma: No consolidation or dominant measurable mass. No architectural distortion. Ther e is a tiny 2 mm nodule associated with the right minor fissure, most consistent with a lymph node. Lung Nodules: No suspicious pulmonary nodules. Pleura: No effusion or pneumothorax. Heart: The heart is not dilated. Moderate coronary artery calcification. No pericardial effusion. Aorta: Thoracic aorta non-dilated.Atherosclerosis. Upper abdomen: Moderate hiatal hernia. Status post cholecystectomy. Bones: Degenerative changes. Soft Tissues: Unremarkable. IMPRESSION: No pulmonary nodules. Moderate coronary artery calcification. Lung RADS Cat 1 - Negative: No nodules and definitely benign nodules Lung-RADS 1.0 CATEGORIES: Category 0 - Prior chest CT exam(s) being located for comparison. Category 1 - Annual screening in 12 months. No nodules or definitely benign nodules. Category 2 - Annual screening in 12 months. Benign appearance. Nodules with low likelihood of becomin g active cancer. Category 3 - 6-month follow-up. Probably benign. Short-term follow-up suggested. Nodules with low lik elihood of becoming active cancer. Category 4A - 3-month follow-up and CT/PET if >8 mm in size. Suspicious finding. Findings which requi re additional testing. Category 4B - Findings which require additional testing and tissue sampling. Suspicious finding. C Added to Any of the Above - History of prior lung cancer screening. S Added to Any of the Above - Significant unexpected other finding. RADIATION DOSE DELIVERED: DATA REPOSITORY: All CT scans at this facility are submitted to the National Radiology Data Registry (NRDR) Dose Index Registry (DIR) with the [employer] (ACR). RADIATION OPTIMIZATION: All CT scans at this facility use at least one of these dose optimization te chniques: automated exposure control; mA and/or kV adjustment per patient size (includes targeted exa ms where dose is matched to clinical indication); or iterative reconstruction.
== END 2020-01-25 11:17 ==
PROVIDERS: PCP Student in an Organized Health Care Education/Training Program; Visit Provider Student in an Organized Health Care Education/Training Program
DX: Z12.2 Encounter for screening for malignant neoplasm of respiratory organs (principal); R59.0 Localized enlarged lymph nodes; K44.9 Diaphragmatic hernia without obstruction or gangrene
CPT/HCPCS: G0297

== ENCOUNTER 2020-07-06 01:35 | Outpatient (CLI) | payer MEDICARE, BC, SELFPAY ==
[2020-07-06 08:49] LABS: Anion Gap 8.1 mmol/L (3-11); BUN 10 mg/dL (7-18); CO2 28.9 mmol/L (21.0-32.0); CREATININE 0.88 mg/dL (0.70-1.30); Calcium 9.1 mg/dL (8.5-10.1); Calculated LDL 129 mg/dL (<100); Chloride 101 mmol/L (98-107); Cholesterol 187 mg/dL (<200); Glucose 110 mg/dL (74-106); HDL Cholesterol 39 mg/dL (40-60); Potassium 4.5 mmol/L (3.5-5.1); Sodium 138 mmol/L (136-145); Triglyceride 98 mg/dL (<150)
== END 2020-07-06 01:55 ==
PROVIDERS: PCP Student in an Organized Health Care Education/Training Program; Visit Provider Student in an Organized Health Care Education/Training Program
DX: I10 Essential (primary) hypertension (principal); Z13.220 Encounter for screening for lipoid disorders
CPT/HCPCS: 36415; 80048; 80061

== ENCOUNTER → 2020-08-25 08:27 | Outpatient (BNVA) | payer MEDICARE, BC, SELFPAY | PROVIDERS: PCP Student in an Organized Health Care Education/Training Program; Referring Provider Student in an Organized Health Care Education/Training Program; Visit Provider Physical Therapy Assistant | DX: Z12.11 Encounter for screening for malignant neoplasm of colon (principal); Z86.010 Personal history of colon polyps; I10 Essential (primary) hypertension ==

== ENCOUNTER 2020-09-04 11:11 | Day surgery (SDC) | payer MEDICARE, BC, SELFPAY ==
--- NOTE | 2020-09-04 06:53 | COLE_ITS ---
Date of service: 09/04/20 Time of Service: 12:30 Colonoscopy Report Date of procedure: 09/04/20 Pre-op diagnosis general: Colon Cancer Screening Post-op diagnosis procedure note: other (Multiple benign appearing polyps and diverticulosis) Procedure: Colonoscopy with polypectomy by forceps Surgeon: Wanda Walker Anesthesia proc note operative: other (General/ASA 2/Ildefonso Shell, LUANNE) Estimated blood loss (mL): 5 Pathology: other (descending polyp, sigmoid polyps x4, rectal polyps x4) Complications: None Disposition: same day Indications: The patient is here for Colonoscopy pre-op. His last screening was in 2008 and was remarkable for a single tiny polyp. He has no family history of colon cancer. He has not had any bowel habit changes. -Discussed colonoscopy bowel prep as well as the procedure. Discussed possible complications of the procedure to include bleeding, pain, perforation, missed small lesion/polyp, sore throat, aspiration and adverse reaction to the medications. Questions were answered to patient?s satisfaction. No guarantees were implied or given. Prep: Miralax/Dulcolax Procedure Start Time: 12:30 Procedure End Time: 12:44 Retraction Time: 23 minutes Findings: 9 small, most likely benign polyps sigmoid diverticulosis Procedure Description: After informed consent was obtained the patient was taken to the procedure room and placed in a left decubitous position. Monitors were applied and a time out was done. The patients name, date of , procedure, allergies to medications and metal in their body was reviewed. The patient was then sedated. Once sedated and comfortable a rectal exam was done. External exam was normal. Internal exam revealed a normal sphincter tone and no palpable masses. The prostate felt smooth. The scope was then introduced and retro-flexed. No internal hemorrhoids were identified. The scope was then advanced to the cecum without difficulty. The ileocecal valve and appendiceal orifice were identified. The prep was good. The scope was then slowly retracted over 23 minutes back into the rectum. Polyps were removed with cold forceps in the descending colo x1, sigmoid colon x4 and rectum x4. There was mild to moderate diverticulosis of the descending and sigmoid colon. The scope was removed and the patient was woken up and taken back to Same day surgery in stable condition. The patient tolerated the procedure well and there were no immediate compli cations. Follow up: The patient should follow up in 10years unless they develop changes in bowel habits or other new gastrointestinal complaints or the pathology results show pre-malignant polyps.
--- NOTE | 2020-09-04 06:53 | W.PM.DSUDISC ---
Discharge Plan Disposition Patient Disposition: HOME Condition: Good Discharge Details Reason For Visit: Colonoscopy Attending Provider: Wanda Walker Primary Care Provider: Jaymie Ramirez Home Meds and New Rx's Prescriptions: Continued Flovent HFA 110 mcg/actuation HFA aerosol inhaler 1 puff IH BID Qty: 12 RF: 0 turmeric 400 mg capsule 800 mg PO DAILY RF: 0 loratadine 10 mg tablet 10 mg PO DAILY RF: 0 losartan 25 mg tablet 25 mg PO DAILY Qty: 90 RF: 3 sildenafil [Viagra] 100 mg tablet 100 mg PO DAILY PRN (Reason: sexual activity) Qty: 12 RF: 3 ibuprofen 200 MG capsule 800 mg PO Q4H PRN RF: 0 Nexium 24HR 20 MG tablet,delayed release (DR/EC) 20 mg PO DAILY RF: 0 venlafaxine 75 mg tablet extended release 24 hr 225 mg PO DAILY Qty: 270 RF: 3 atorvastatin [Lipitor] 20 mg tablet 20 mg PO DAILY Qty: 90 RF: 3 fluticasone propionate 50 mcg/actuation spray,suspension 2 spray DAVID DAILY Qty: 16 RF: 3 albuterol sulfate 90 mcg/actuation HFA aerosol inhaler 2 puff IH QID PRN (Reason: shortness of breath) Qty: 18 RF: 0 Discontinued polyethylene glycol 3350 17 gram/dose powder 238 g PO ONCE Qty: 238 RF: 0 bisacodyl [Dulcolax (bisacodyl)] 5 mg tablet,delayed release (DR/EC) 5 mg PO ONCE Qty: 4 RF: 0 Discharge Instructions Instructions: Diverticulosis (DC), Colorectal Polyps (DC) Additional Instructions: Findings: 9 polyps, most likely benign Diverticulosis Follow up: depends on final pathology, most likely 10 years Please call if you develop: fevers >101.5 Nausea or Vomiting Abdominal pain that is not transient DAY SURGERY UNIT POST ENDOSCOPY INSTRUCTIONS 1. Because there will be medication in your system for the next 24 hours, you may feel a little sleepy. Your coordination will be affected. Therefore: a. Do not drive or operate dangerous equipment for 24 hours. b. Do not drink alcohol beverages for 24 hours (not even beer). c. Plan to go home and rest for the day. 2. Generally there are no restrictions on your activity after a day or so has gone by, but you may feel a bit fatigued for a few days. 3 After you arrive home you may have a light meal and return to a normal diet as you can tolerate it without feeling sick to your stomach. 4. After surgery, you may feel pain or discomfort. This should be only transient, but if it persists please contact your doctor. 5. If there are any questions regarding the findings of your procedure, please feel free to contact your doctor. 6. If you are unable to contact your doctor with a problem, contact the hospital at [phone]. 7. Continue all your regular medications unless directed otherwise. I understand the above instructions and have no questions. Signature of Patient or Responsible Adult Escort Date/Time Name of Responsible Adult Escort Signature of Nurse Date/Time Activity:: Activity as Tolerated Diet:: High Fiber diet Discharge Orders Discharge Orders: Discharge Order (Routine); Ordered 09/04/20 Ordered By: Wanda Walker
[2020-09-04 11:17] VITALS: BP 132/86; PULSE 66; RESP 18; TEMP 36.3; O2SAT 96
[2020-09-04] MEDS: Lactated Ringers 1,000 ML 80 ML IV (11:41)
--- NOTE | 2020-09-04 12:31 | BOWEL_PTH ---
PATIENT: Sylvain Long JR LOC: [facility] U#:[id number] AGE/SX: 60/M ROOM: RE09/04/[address]: Wanda Walker MD : 1960 BED: DIS: 09/04/2020 SPEC #: [id number] RECD: 09/04/20 17:25 STATUS: PIPER REQ #: [id number] JADON: 09/04/20 12:[address]: Wanda Walker DEPT: Surgical Specimen RECD BY: Veronica Hamlin ENTERED: 09/04/20 17:25 SP TYPE: Bowel OTHR DR: Jaymie Ramirez DO Tissues: 1 - BIOPSY BOWEL 2 - BIOPSY BOWEL 3 - BIOPSY BOWEL Procedures: GROSS AND MICRO LEVEL 4 Comments: [id number]
[2020-09-04 13:19] VITALS: BP 134/88; PULSE 63; RESP 18; TEMP 36.3; O2SAT 97
== END 2020-09-04 13:55 | disposition home or self-care (01) ==
PROVIDERS: PCP Student in an Organized Health Care Education/Training Program; Visit Provider Surgery
PROC: 0DJD8ZZ Inspection of Lower Intestinal Tract, Via Natural or Artificial Opening Endoscopic (ICD-10-PCS; CPT 45378; principal; 2020-09-04 11:30)
DX: Z12.11 Encounter for screening for malignant neoplasm of colon (principal); K57.30 Diverticulosis of large intestine without perforation or abscess without bleeding; K63.5 Polyp of colon
CPT/HCPCS: 45380; 88305

== ENCOUNTER → 2020-10-19 07:54 | Outpatient (BNVA) | payer MEDICARE, BC, SELFPAY | PROVIDERS: PCP Student in an Organized Health Care Education/Training Program; Referring Provider Student in an Organized Health Care Education/Training Program; Visit Provider Student in an Organized Health Care Education/Training Program | DX: G56.02 Carpal tunnel syndrome, left upper limb (principal); G56.22 Lesion of ulnar nerve, left upper limb; M75.52 Bursitis of left shoulder; M25.511 Pain in right shoulder; M25.512 Pain in left shoulder | CPT/HCPCS: 99204; 99215 ==

== ENCOUNTER 2020-11-03 04:16 | Outpatient (CLI) | payer MEDICARE, BC, SELFPAY ==
--- NOTE | 2020-11-03 10:38 | DI.MRI_ITS ---
EXAM: MR UPPER JOINT LT WO CLINICAL HISTORY: LT ROTATOR CUFF TEAR, SHOULDER PAIN,M75.102. TECHNIQUE: Multiplanar multisequence MRI was performed. COMPARISON: CR LEFT SHOULDER COMPLETE from 03/10/2018 FINDINGS: BONES: There is no fracture or contusion pattern. JOINTS: Mild degenerative changes are seen at the acromioclavicular joint. Degenerative changes are seen at the glenohumeral joint with loss of the articular cartilage subchondral edema and subchondral cysts. TENDONS: Supraspinatus: A moderate-sized articular surface tear of the supraspinatus tendon is seen at the ins ertion site. Infraspinatus: Intermediate signal is seen within the infraspinatus tendon consistent with tendinosis . Partial tear cannot be excluded. Subscapularis: There is thickening and intermediate signal seen within the subscapularis tendon. The re is also hyperintense signal seen on the articular surface of the supraspinatus tendon near its ins ertion site onto the lesser tuberosity consistent with a partial tear. Teres Minor: Unremarkable. Biceps and [place]: There is thickening and increased signal seen within the long head of the biceps c onsistent with the partial tear and/or tendinosis. MUSCLES: Unremarkable. GLENOID LABRUM: Abnormal hyperintense signal is seen in the superior labrum posterior to the anchor s uspicious for tear and/or degeneration. SOFT TISSUES: Unremarkable. LIGAMENTS: Unremarkable. OTHER: Subacromial and subdeltoid bursae are unremarkable. IMPRESSION: 1. Tears involving the articular surfaces of both the supraspinatus and subscapularis tendons near th eir insertion sites. 2. Partial tear versus tendinosis of the infraspinatus and biceps tendons. 3. Hyperintense signal seen in the superior labrum posterior to the anchor suspicious for tear. 4. Degenerative changes seen at both the acromioclavicular and glenohumeral joints. DATA REPOSITORY:
== END 2020-11-03 04:36 ==
PROVIDERS: PCP Student in an Organized Health Care Education/Training Program; Visit Provider Student in an Organized Health Care Education/Training Program
DX: M75.102 Unspecified rotator cuff tear or rupture of left shoulder, not specified as traumatic (principal); M19.012 Primary osteoarthritis, left shoulder
CPT/HCPCS: 73221

== ENCOUNTER 2020-11-09 02:26 | Outpatient (CLI) | payer MEDICARE, BC, SELFPAY ==
[2020-11-10 17:03] LABS: COVID-19 RT-PCR UVMMC Result Negative (Negative)
== END 2020-11-09 02:46 ==
PROVIDERS: PCP Student in an Organized Health Care Education/Training Program; Visit Provider Student in an Organized Health Care Education/Training Program
DX: Z11.59 Encounter for screening for other viral diseases (principal); Z01.818 Encounter for other preprocedural examination
CPT/HCPCS: U0003

== ENCOUNTER 2020-11-15 11:05 | Day surgery (SDC) | payer MEDICARE, BC, SELFPAY ==
[2020-11-15 11:13] VITALS: BP 135/86; PULSE 67; RESP 18; TEMP 36.3; O2SAT 94
[2020-11-15] MEDS: Lactated Ringers 1,000 ML 30 ML IV (12:26)
[2020-11-15] MEDS: ceFAZolin 2 GM/50 ML BAG IVPB (14:50)
[2020-11-15] MEDS: Bupivacaine 0.5% Pres-Free 30 ML VIAL (15:02)
[2020-11-15] MEDS: methylPREDNISolone ACETATE 80 MG/ML VIAL (15:02)
[2020-11-15] MEDS: Bupivacaine 0.25% Pres-Free 30 ML VIAL (15:25)
[2020-11-15] MEDS: EPINEPHrine 1 MG/ML AMP pres-free (15:26)
[2020-11-15 16:04] VITALS: BP 123/76; PULSE 99; RESP 18; TEMP 36.2; O2SAT 98
[2020-11-15 16:09] VITALS: BP 119/82; PULSE 71; RESP 18; TEMP 36.2; O2SAT 98
[2020-11-15 16:15] VITALS: BP 128/77; PULSE 70; RESP 16; TEMP 36.6; O2SAT 98
--- NOTE | 2020-11-15 16:17 | PDOC.DSDIS_ITS ---
Discharge Plan Disposition Patient Disposition: HOME Condition: Good Discharge Details Reason For Visit: Left carpal and cubital tunnel release Attending Provider: Jose Carlos Chadwick Primary Care Provider: Jaymie Ramirez Home Meds and New Rx's Prescriptions: New hydrocodone-acetaminophen [[place]] 5-325 mg tablet 1 tab PO Q6H PRNQty: 7 RF: 0 Continued turmeric 400 mg capsule 800 mg PO DAILY RF: 0 loratadine 10 mg tablet 10 mg PO DAILY RF: 0 losartan 25 mg tablet 25 mg PO DAILY Qty: 90 RF: 3 fluticasone propionate 50 mcg/actuation spray,suspension 2 spray DAVID DAILY Qty: 16 RF: 3 (DME) Flexichamber Spacer See Rx Instructions .ROUTE .MEDSUPPLY Qty: 1 RF: 0 ibuprofen 200 MG capsule 800 mg PO Q4H PRN RF: 0 Nexium 24HR 20 MG tablet,delayed release (DR/EC) 20 mg PO DAILY RF: 0 atorvastatin [Lipitor] 20 mg tablet 20 mg PO DAILY Qty: 90 RF: 3 venlafaxine 75 mg tablet extended release 24hr 225 mg PO DAILY Qty: 270 RF: 3 albuterol sulfate 90 mcg/actuation HFA aerosol inhaler 2 puff IH QID PRN (Reason: shortness of breath) Qty: 18 RF: 1 sildenafil [Viagra] 100 mg tablet 100 mg PO DAILY PRN (Reason: sexual activity) Qty: 12 RF: 3 Discharge Instructions Additional Instructions: Cubital and Carpal Tunnel Decompression Discharge Instructions Activity: You should stay in the sling for the first 2 weeks. You may come out of the sling for gentle motion and hygiene but should largely remain in the sling to allow the incision site to heal. Gentle motion of the elbow, hand, wrist, and fingers is okay and encouraged after the first few days, but no repetitive activities nor heavy lifting. You may apply ice as needed. Medications: - You should take Tylenol and Ibuprofen around the clock. - You have been prescribed Hydrocodone for breakthrough pain. Dressings: - The initial surgical dressing should stay in place for 3 days. It may then be removed and kept clean and dry. You should cover with a light gauze dressing. - You may shower after 3 days and get the wound wet. Follow-up: 10 days Stand Alone Forms: Farurkh Easley Tunnel Release Referrals: Jose Carlos Chadwick MD [ [facility] STAFF PHYSICIAN] - Equipment/Supplies: Sling Activity:: Activity as Tolerated Remove Dressings/Wound Care:: 72 hours Shower/Bathe:: 72 hours Diet:: As Tolerated Discharge Orders Discharge Orders: Discharge Order (Routine); Ordered 11/15/20 Ordered By: Isabella Patrick
[2020-11-15 16:20] VITALS: PULSE 65; RESP 16; TEMP 36.6; O2SAT 98
[2020-11-15 17:01] VITALS: BP 139/71; PULSE 68; RESP 18; TEMP 36.2; O2SAT 97
--- NOTE | 2020-11-15 21:13 | ROE_ITS ---
Date of service: 11/15/20 Time of Service: 16:13 Operative Note Operative Note DATE OF PROCEDURE: 11/15/20 PRE-OP DIAGNOSIS: Left Carpal Tunnel, Left Cubital Tunnel Syndrome, and Left Rotator Cuff Tear POST-OP DIAGNOSIS: same PROCEDURE: Left Endoscopic Carpal Tunnel Release and Left Cubital Tunnel Decompression and Left Intraarticular Shoulder Injection SURGEON: Jose Carlos Chadwick MANUFACTURING ENGINEER SUPERVISOR: Isabella Patrick ANESTHESIA: GETA ESTIMATED BLOOD LOSS: 0 PATHOLOGY: none sent TOURNIQUET TIME: 20 COMPLICATIONS: None Patient was transported to: PACU Patient's condition: stable Indications: Sylvain is a 60 year old who has had symptoms of carpal and cubital tunnel syndrome. Nonoperative treatment options had been trialed. Given hever lure of nonoperative treatments and persistent symptoms, I offered operative intervention. I reviewed the technical details of a carpal tunnel release and cubital tunnel decompression with possible anterior subcutaneous transposition. I reviewed the risk of the procedure to include bleeding, infection, pain, stiffness, tendon instability, damage to the superficial radial nerve, and complete release. Despite these risks, the patient elected to proceed. Additionally, Sylvain has had persistent pain of the left shoulder. His MRI demonstrated cystic changes and arthritis of the glenohumeral joint in addition to a rotator cuff tear. We discussed treatment options and he elected to have an intra-articular injection and desired this to be done today while under anesthesia. Findings: The carpal tunnel was release with a standard endoscopic technique without difficulty and excellent visualization. There was a tightened cubital tunnel. There was some swelling of the nerve from just distal of the medial epicondyle and into the FCU. The ulnar nerve was release from the first motor branch distally through the [place] proximally. Procedure Description: Sylvain was greeted in the preoperative holding area where the correct side was identified and marked. The consent was reviewed with the patient and signed. The history and physical was updated. All questions were answered. Sylvain was taken back to the operating room. The patient was placed into the supine position on the operating room table with the left arm on an arm board. Before proceeding with the cubital and carpal tunnel releases, I performed the left shoudler injection. A timeout to confirm correct identity, side and site, procedure, allergies, anesthesia, and medical concerns was performed. Bony anatomy was identified and the soft spot of the glenohumeral joint was marked. The skin was prepped with an alcohol swab. The shoulder joint was entered useng a 22g spinal needle. The humeral head was palpated and the needle fell into the joint. I then injected 80mg of Depo-Medrol with 8cc of 0.5% Bupivacaine without difficulty. A nonsterile tourniquet was placed high onto the arm, into the axilla. All bony prominences were well padded. Prophylactic antibiotics in the form of Cefazolin were administered. The left arm was then prepped with Chloraprep and draped in a standard fashion with stockinette and extremity drape. The surgical site was marked in the volar wrist creases in line with the radial border of the fourth ray. This area was anesthetized with approximately 6cc of 1% Lidocaine. The limb was then exsanguinated with an Esmarch. The skin was incised with a 15 blade, approximately 1cm. The skin only was cut and the deeper tissue was dissected bluntly with a tenotomy scissor, avoiding passing nerve and venous structures. The fascia was penetrated and opened bluntly. A t wo-prong skin hook was placed under this proximal fascial edge. A series of hamate finders were used to identify and dilate the carpal tunnel. Synovial elevator was used to free synovial attachments to the underside of the transverse carpal ligament. My thumb was kept in the palm to francisco the distal extent of the carpal tunnel and correctly position the hand. The Microaire endoscope was inserted without difficulty and without resistance. Excellent visualization showed horizontally running fibers of the transverse carpal ligament (TCL). The distal extent of the TCL was visualized and the end of the scope palpated with the thumb. The blade was elevated and withdrawn from distal to proximal. The TCL was split into two flaps. The endoscope was reinserted to confirm complete release and any remnant ligament was incised. The scope was withdrawn and the proximal aspect of the carpal tunnel was grossly inspected and appeared release with the median nerve visible. The antebrachial fascia at the level of the wrist was then freed from the overlying skin and then the underlying median nerve with blunt dissection. This was transected longitudinally for about 3cm proximal to the wrist incision. The wound was then irrigated with easy flow of irrigant distally and proximally. The incision was closed with a single 4-0 Nylon suture. The wound was dressed with Xeroform, Gauze, Kerlix. Attention was then turned to the elbow. The surgical site was drawn on the skin as was the medial epicondyle borders. The planned surgical field was anesthetized with 0.5% Bupivacaine with epinephrine. The skin was incised only. The deep tissue and subcutaneous fat was dissected with a tenotomy scissors trying to protect any branches of the medial antebrachial cutaneous nerve. Any branches that were identified were retracted out of the way. The ulnar nerve was palpated and identified. A small window into the cubital tunnel, sheath overlying the nerve, was created and the nerve was able to be palpated with the [place]. A Metzenbaum scissor was then used to open up the sheath starting with Guerrier's ligament. I then worked distal over the ulnar nerve releasing any constraints against the nerve all the way to the fascia of the FCU muscle belly. This muscle belly was bluntly all the way down to the first motor branch of the ulnar nerve and the overlying fascia was incised. Likewise starting there at the medial epicondyle, I proceeded to work proximally to release any constraints over the ulnar nerve. This was taken all the way to the arcade of [place]. The medial intermuscular septum was also palpated and any sharp edges against the ulnar nerve were resected and released. After fully releasing the nerve it was inspected visually. I was also able to palpate the nerve fully and reach one finger up into the proximal and distal aspects to make sure there were no constraints against the nerve. A freer elevator was also used to slide easily against the ulnar nerve without any points of constriction. The arm was then taken through range of motion. The ulnar nerve did not sublux/dislocate out of its groove behind the lateral epicondyle. The tourniquet was then deflated. Any areas of bleeding were cauterized with bipolar electrocautery. The wound was thoroughly irrigated. The deep tissue was closed with a 3-0 Vicryl. The skin was closed with a 4-0 nylon. The wound was dressed with Xeroform, 4 x 4's, ABD, Kerlix and an Chriss wrap. Sylvain was placed into a sling. Sylvain was transferred back to the PACU in a stable condition.
== END 2020-11-15 17:28 | disposition home or self-care (01) ==
PROVIDERS: PCP Student in an Organized Health Care Education/Training Program; Visit Provider Student in an Organized Health Care Education/Training Program
PROC: 01N54ZZ Release Median Nerve, Percutaneous Endoscopic Approach (ICD-10-PCS; CPT 29848; principal; 2020-11-15 13:30)
PROC: (CPT 64718; 2020-11-15 13:30)
PROC: (CPT 64718; 2020-11-15 13:30)
DX: G56.02 Carpal tunnel syndrome, left upper limb (principal); G56.22 Lesion of ulnar nerve, left upper limb; M75.102 Unspecified rotator cuff tear or rupture of left shoulder, not specified as traumatic
CPT/HCPCS: 64718; 29848; 20610; J0171; J0690; J1040; J1100; J2405; L3650

== ENCOUNTER → 2020-11-24 08:44 | Outpatient (BNVA) | payer MEDICARE, BC, SELFPAY | PROVIDERS: PCP Student in an Organized Health Care Education/Training Program; Referring Provider Student in an Organized Health Care Education/Training Program; Visit Provider Student in an Organized Health Care Education/Training Program | DX: Z47.89 Encounter for other orthopedic aftercare (principal); G56.02 Carpal tunnel syndrome, left upper limb; G56.22 Lesion of ulnar nerve, left upper limb ==

== ENCOUNTER → 2020-12-01 09:39 | Outpatient (BNVA) | payer MEDICARE, BC, SELFPAY | PROVIDERS: PCP Student in an Organized Health Care Education/Training Program; Referring Provider Student in an Organized Health Care Education/Training Program; Visit Provider Physician Assistant | DX: G56.02 Carpal tunnel syndrome, left upper limb (principal); G56.22 Lesion of ulnar nerve, left upper limb; Z47.89 Encounter for other orthopedic aftercare; T81.30XA Disruption of wound, unspecified, initial encounter ==

== ENCOUNTER → 2020-12-07 09:47 | Outpatient (BNVA) | payer MEDICARE, BC, SELFPAY | PROVIDERS: PCP Student in an Organized Health Care Education/Training Program; Referring Provider Student in an Organized Health Care Education/Training Program; Visit Provider Physician Assistant | DX: Z47.89 Encounter for other orthopedic aftercare (principal); G56.22 Lesion of ulnar nerve, left upper limb ==

== ENCOUNTER → 2020-12-21 08:40 | Outpatient (BNVA) | payer MEDICARE, BC, SELFPAY | PROVIDERS: PCP Student in an Organized Health Care Education/Training Program; Referring Provider Student in an Organized Health Care Education/Training Program; Visit Provider Physician Assistant | DX: Z47.89 Encounter for other orthopedic aftercare (principal); G56.02 Carpal tunnel syndrome, left upper limb; G56.22 Lesion of ulnar nerve, left upper limb ==

== ENCOUNTER 2020-12-25 07:26 | Day surgery (SDC) | payer MEDICARE, BC, SELFPAY ==
[2020-12-25 07:30] VITALS: BP 133/91; PULSE 63; RESP 16; TEMP 36.3; O2SAT 97
[2020-12-25] MEDS: Midazolam/Ketamine/Ondansetron (3/25/2MG) 1 TAB 1 EACH SL (09:00)
[2020-12-25] MEDS: Tetracaine 0.5% 4 ML BTL OD (09:20)
[2020-12-25] MEDS: Balanced Salt Soln.-PLUS 500 ML BAG (09:22)
[2020-12-25] MEDS: Duovisc Viscoelastic System EACH 1 EACH (09:23)
[2020-12-25] MEDS: Lidocaine 1% Pres-Free 5 ML VIAL (09:23)
[2020-12-25] MEDS: Lidocaine 2% Jelly 6 ML SYR (09:24)
[2020-12-25] MEDS: Povidone-Iodine Ophth 30 ML BTL (09:25)
--- NOTE | 2020-12-25 09:34 | W.PM.DSUDISC ---
Discharge Plan Disposition Patient Disposition: HOME Condition: Good Discharge Details Attending Provider: Esa Maurer Primary Care Provider: Jaymie Ramirez Home Meds and New Rx's Prescriptions: No Action turmeric 400 mg capsule 800 mg PO DAILY RF: 0 loratadine 10 mg tablet 10 mg PO DAILY RF: 0 losartan 25 mg tablet 25 mg PO DAILY Qty: 90 RF: 3 fluticasone propionate 50 mcg/actuation spray,suspension 2 spray DAVID DAILY Qty: 16 RF: 3 (DME) Flexichamber Spacer See Rx Instructions .ROUTE .MEDSUPPLY Qty: 1 RF: 0 ibuprofen 200 MG capsule 800 mg PO Q4H PRN RF: 0 Nexium 24HR 20 MG tablet,delayed release (DR/EC) 20 mg PO DAILY RF: 0 atorvastatin [Lipitor] 20 mg tablet 20 mg PO DAILY Qty: 90 RF: 3 venlafaxine 75 mg tablet extended release 24hr 225 mg PO DAILY Qty: 270 RF: 3 sildenafil [Viagra] 100 mg tablet 100 mg PO DAILY PRN (Reason: sexual activity) Qty: 12 RF: 3 albuterol sulfate 90 mcg/actuation HFA aerosol inhaler 2 puff IH QID PRN (Reason: shortness of breath) Qty: 18 RF: 1 Discharge Instructions Stand Alone Forms: Post-op Topical Toby Ortega (DSU) Discharge Orders Discharge Orders: Discharge Order (Routine); Ordered 12/25/20 Ordered By: Esa Maurer DS: Diagnosis Discharge Diagnosis (1) Posterior subcapsular age-related cataract, right eye: Status: Resolved (2) Nuclear sclerotic cataract of right eye: Status: Resolved
--- NOTE | 2020-12-25 09:35 | W.PM.OP ---
Date of service: 12/25/20 Time of Service: 09:35 Operative Note Operative Note DATE OF PROCEDURE: 12/25/20 PRE-OP DIAGNOSIS: Nuclear/posterior subcapsular cataract, right eye POST-OP DIAGNOSIS: same PROCEDURE: Cataract extraction using phacoemulsification with intraocular lens implant, right eye SURGEON: Esa Maurer ANESTHESIA: MAC and local (sub-tenon's anesthetic infiltration) ESTIMATED BLOOD LOSS: 0 PATHOLOGY: none sent COMPLICATIONS: None Patient was transported to: same day Patient's condition: stable Implants: [employer] / [employer] Tecnis ZCB00 intraocular lens Indications: Progressive decreased vision due to cataract, right eye Procedure Description: CATARACT SURGERY OPERATIVE REPORT PREOPERATIVE DIAGNOSIS: Nuclear/cortical cataract, right eye POSTOPERATIVE DIAGNOSIS: Same OPERATION: Cataract extraction using phacoemulsification with posterior chamber intraocular lens implant, right eye. IOL: IOL Steam Turbine Operator/Model: [employer] / NEIL Tecnis ZCB00 IOL Power: + 19.5 diopters IOL Serial Number: [id number] Optic Diameter: 6.0mm Haptic/Overall Diameter: 13.0mm PHACO INFO: Chris Three Ringsurion Vision System with OZil and Active [employer]uidics Cumulative Dispersed Energy (CDE): 3.87 seconds SURGEON: Esa Maurer MD, CINTHYA ANESTHESIA: Monitored Anesthesia Care (MAC), with local sub-tenon's anesthetic infiltration COMPLICATIONS: None SPECIMENS: None INDICATIONS FOR PROCEDURE: The patient is a 60-year-old gentleman with history of diminished visual acuity in his right eye. He is noted to have a nuclear and cortical cataract in the right eye. The option of cataract surgery was offered to the patient and he wished to proceed. PROCEDURE: The correct surgical eye was identified and marked as the right eye and the pupil was dilated in the preoperative area using mydriatics and cycloplegics. The dilated pupil size was 6.5 mm. Oral sedation was administered in the form of an Imprimis MKO Melt (midazolam 3mg/ketamine 25mg/ondansetron 2mg). The patient was brought to the operating room where cardiopulmonary monitoring was instituted and surgical time-out was performed, confirming the correct operative eye and IOL power. Topical anesthesia was administered and ophthalmic povidone-iodine 5% was instilled into the conjunctival fornices. Lidocaine gel was applied to the cornea and the tracy-ocular area was prepped with Betadine 10% solution and draped in the usual sterile fashion for intraocular surgery, including an aperture drape. A Tegaderm transparent film dressing was cut in half and used to cover the lashes and lid margins. Care was taken to sequester the lashes and lid margins under the Tegaderm dressing. A lid speculum was placed between the lids of the operative eye and the Renny-French operating microscope was maneuvered into position. Jose Guadalupe scissors were then used to make a conjunctival buttonhole approximately 6mm posterior to the limbus in the inferonasal quadrant. Blunt dissection was carried out to expose bare sclera, and a blunt-tipped sub-tenon?s anesthesia cannula was introduced and passed posteriorly along the globe where non-preserved plain lidocaine was injected into posterior sub-Tenon?s space. A sideport knife was used to make a paracentesis port inferiortemporally. Intraocular phenylephrine/lidocaine was injected into the anterior chamber. The anterior chamber was then filled with viscoelastic. A 2.4mm keratome knife was used to create a half-thickness groove at the limbus and then to construct a three-plane near-clear corneal tunnel extending 2.0mm into clear cornea in the superiortemporal position. . A flap was raised on the anterior capsule and capsulorhexis forceps were used to complete a continuous curvilinear capsulorhexis of 4.8 mm. Balanced salt solution was then used to perform cortical cleaving hydrodissection and nuclear hydrodelineation until the lens could be freely rotated within the capsular bag. The lens nucleus was then disassembled and removed within the capsular bag and iris plane using phacoemulsification. Residual cortical material was removed using the I/A handpiece. The posterior capsule was carefully polished to remove as much residual lens epithelial cells as safely possible. The capsular bag was then inflated and the anterior chamber deepened with viscoelastic. The lens implant described above was inserted into the capsular bag using the NEIL [place] Injector. A Kuglen hook was used to dial the IOL into position. Residual viscoelastic was then removed first from posterior to the IOL, then from the anterior chamber using the I/A handpiece. The lens implant was noted to center nicely within the capsular bag. The incisions were stromally hydrated, and the anterior chamber was reformed using BSS. Then 0.5cc of moxifloxacin 1.0mg/ml were injected into the capsular bag and anterior chamber. The incisions were checked with a Weck spear and found to be secure. Several drops of ophthalmic povidone-iodine 5% were then applied to the eye followed by two drops of Imprimis combination prednisolone/moxifloxacin/nepafenac solution. The drapes were removed and a clear plastic protective eye shield was placed over the eye. The patient was then returned to [facility] in stable condition.
[2020-12-25 10:00] VITALS: BP 127/86; PULSE 75; RESP 18; TEMP 36.1; O2SAT 95
== END 2020-12-25 10:04 | disposition home or self-care (01) ==
PROVIDERS: PCP Student in an Organized Health Care Education/Training Program; Visit Provider Ophthalmology
PROC: (CPT 66984; principal; 2020-12-25 09:30)
DX: H25.11 Age-related nuclear cataract, right eye; H25.011 Cortical age-related cataract, right eye; K21.9 Gastro-esophageal reflux disease without esophagitis
CPT/HCPCS: 66984; V2632

== ENCOUNTER 2021-01-08 06:21 | Day surgery (SDC) | payer MEDICARE, BC, SELFPAY ==
[2021-01-08 06:31] VITALS: BP 130/82; PULSE 79; RESP 16; TEMP 36.9; O2SAT 96
[2021-01-08] MEDS: Tropicam./Phenyleph. (1/2.5%) 5 ML BTL OS ×3 (06:40→06:55)
[2021-01-08] MEDS: Tetracaine 0.5% 4 ML BTL OS (07:18)
[2021-01-08] MEDS: Lidocaine 2% Jelly 6 ML SYR (07:19)
[2021-01-08] MEDS: Lidocaine 1% Pres-Free 5 ML VIAL (07:25)
[2021-01-08] MEDS: Balanced Salt Soln.-PLUS 500 ML BAG (07:28)
[2021-01-08] MEDS: Povidone-Iodine Ophth 30 ML BTL (07:30)
[2021-01-08] MEDS: Duovisc Viscoelastic System EACH 1 EACH (07:31)
--- NOTE | 2021-01-08 07:51 | W.PM.DSUDISC ---
Discharge Plan Disposition Patient Disposition: HOME Condition: Good Discharge Details Attending Provider: Esa Maurer Primary Care Provider: Jaymie Ramirez Home Meds and New Rx's Prescriptions: No Action turmeric 400 mg capsule 800 mg PO DAILY RF: 0 loratadine 10 mg tablet 10 mg PO DAILY RF: 0 losartan 25 mg tablet 25 mg PO DAILY Qty: 90 RF: 3 fluticasone propionate 50 mcg/actuation spray,suspension 2 spray DAVID DAILY Qty: 16 RF: 3 (DME) Flexichamber Spacer See Rx Instructions .ROUTE .MEDSUPPLY Qty: 1 RF: 0 ibuprofen 200 MG capsule 800 mg PO Q4H PRN RF: 0 Nexium 24HR 20 MG tablet,delayed release (DR/EC) 20 mg PO DAILY RF: 0 atorvastatin [Lipitor] 20 mg tablet 20 mg PO DAILY Qty: 90 RF: 3 venlafaxine 75 mg tablet extended release 24hr 225 mg PO DAILY Qty: 270 RF: 3 sildenafil [Viagra] 100 mg tablet 100 mg PO DAILY PRN (Reason: sexual activity) Qty: 12 RF: 3 albuterol sulfate 90 mcg/actuation HFA aerosol inhaler 2 puff IH QID PRN (Reason: shortness of breath) Qty: 18 RF: 1 Discharge Instructions Stand Alone Forms: Post-op Topical Cataract Discharge Orders Discharge Orders: Discharge Order (Routine); Ordered 01/08/21 Ordered By: Esa Maurer DS: Diagnosis Discharge Diagnosis (1) Posterior subcapsular age-related cataract of left eye: Status: Resolved (2) Nuclear sclerotic cataract of left eye: Status: Resolved
--- NOTE | 2021-01-08 07:52 | ROE_ITS ---
Date of service: 01/08/21 Time of Service: 07:53 Operative Note Operative Note DATE OF PROCEDURE: 01/08/21 PRE-OP DIAGNOSIS: Nuclear/posterior subcapsular cataract, left eye POST-OP DIAGNOSIS: same PROCEDURE: Cataract extraction using phacoemulsification with intraocular lens implant, left eye SURGEON: Esa Maurer Refer to Anesthesia Record PATHOLOGY: none sent COMPLICATIONS: None Patient was transported to: same day Patient's condition: stable Implants: [employer] / [employer] Tecnis [id number] Indications: Progressive decreased vision due to cataract, left eye Procedure Description: CATARACT SURGERY OPERATIVE REPORT PREOPERATIVE DIAGNOSIS: Nuclear/posterior subcapsular cataract, left eye POSTOPERATIVE DIAGNOSIS: Same OPERATION: Cataract extraction using phacoemulsification with posterior chamber intraocular lens implant, left eye. IOL: IOL Bleach Boiler Puller/Model: [employer] / NEIL [employer]ecnis [id number] IOL Power: + 19.50 diopters IOL Serial Number: [id number] Optic Diameter: 6.0mm Haptic/Overall Diameter: 13.0mm PHACO INFO: [employer] Vision System with OZil and [employer] Cumulative Dispersed Energy (CDE): 10.27 seconds SURGEON: Esa Maurer MD, CINTHYA ANESTHESIA: Monitored Anesthesia Care (MAC), with local sub-tenon's anesthetic infiltration COMPLICATIONS: None SPECIMENS: None INDICATIONS FOR PROCEDURE: The patient is a 60-year-old gentleman with history of diminished visual acuity in both eyes secondary to the development of bilateral nuclear and posterior subcapsular cataract. He has already undergone cataract surgery in his right eye and is doing well postoperatively. He now presents for cataract surgery in the left eye. PROCEDURE: The correct surgical eye was identified and marked as the left eye and the pupil was dilated in the preoperative area using mydriatics and cycloplegics. The dilated pupil size was 7.0 mm. Oral sedation was administered in the form of an Imprimis MKO Melt (midazolam 3mg/ketamine 25mg/ondansetron 2mg). The patient was brought to the operating room where cardiopulmonary monitoring was instituted and surgical time-out was performed, confirming the correct operative eye and IOL power. Topical anesthesia was administered and ophthalmic povidone-iodine 5% was instilled into the conjunctival fornices. Lidocaine gel was applied to the cornea and the tracy-ocular area was prepped with Betadine 10% solution and draped in the usual sterile fashion for intraocular surgery, including an aperture drape. A Tegaderm transparent film dressing was cut in half and used to cover the lashes and lid margins. Care was taken to sequester the lashes and lid margins under the Tegaderm dressing. A lid speculum was placed between the lids of the operative eye and the Renny-French operating microscope was maneuvered into position. Jose Guadalupe scissors were then used to make a conjunctival buttonhole approximately 6mm posterior to the limbus in the inferonasal quadrant. Blunt dissection was carried out to expose bare sclera, and a blunt-tipped sub-tenon?s anesthesia cannula was introduced and passed posteriorly along the globe where non- preserved plain lidocaine was injected into posterior sub-Tenon?s space. A sideport knife was used to make a paracentesis port superior/superiortemporally. Intraocular phenylephrine/lidocaine was injected into the anterior chamber. The anterior chamber was then filled with viscoelastic. A 2.4mm keratome knife was used to create a half-thickness groove at the limbus and then to construct a three-plane near-clear corneal tunnel extending 2.0mm into clear cornea in the temporal position. . A flap was raised on the anterior capsule and capsulorhexis forceps were used to complete a continuous curvilinear capsulorhexis of 5.5 mm. Surgery was challenging due to constant patient movement. Balanced salt solution was then used to perform cortical cleaving hydrodissection and nuclear hydrodelineation until the lens could be freely rotated within the capsular bag. The lens nucleus was then disassembled and removed within the capsular bag and iris plane using phacoemulsification. Residual cortical material was removed using the 45-degree angled silicone I/A tip with 0.3mm port. The posterior capsule was carefully polished to remove as much residual lens epithelial cells as safely possible. The capsular bag was then inflated and the anterior chamber deepened with viscoelastic. The lens implant described above was inserted into the capsular bag using the NEIL [place] Injector. A Kuglen hook was used to dial the IOL into position. Residual viscoelastic was then removed first from posterior to the IOL, then from the anterior chamber using the I/A handpiece. The lens implant was noted to center nicely within the capsular bag. The incisions were stromally hydrated, and the anterior chamber was reformed using BSS. Then 0.5cc of moxifloxacin 1.0mg/ml were injected into the capsular bag and anterior chamber. The incisions were checked with a Weck spear and found to be secure. Several drops of ophthalmic povidone-iodine 5% were then applied to the eye followed by two drops of Imprimis combination prednisolone/moxifloxacin/nepafenac solution. The drapes were removed and a clear plastic protective eye shield was placed over the eye. The patient was then returned to [facility] in stable condition.
[2021-01-08 08:17] VITALS: BP 122/89; PULSE 77; RESP 18; TEMP 36.4; O2SAT 95
== END 2021-01-08 08:24 | disposition home or self-care (01) ==
PROVIDERS: PCP Student in an Organized Health Care Education/Training Program; Visit Provider Ophthalmology
PROC: (CPT 66984; principal; 2021-01-08 07:30)
DX: H25.042 Posterior subcapsular polar age-related cataract, left eye (principal); H25.12 Age-related nuclear cataract, left eye; Z98.41 Cataract extraction status, right eye; Z96.1 Presence of intraocular lens; K21.9 Gastro-esophageal reflux disease without esophagitis
CPT/HCPCS: 66984; V2632

== ENCOUNTER 2021-02-07 01:37 | Outpatient (CLI) | payer MEDICARE, BC, SELFPAY ==
--- NOTE | 2021-02-07 07:30 | DI.US_ITS ---
EXAM: US SOFT TISSUE HEAD OR NECK CLINICAL HISTORY: evaluate fullness; r/o nodule,R22.1. TECHNIQUE: Ultrasound was performed using standard protocol. COMPARISON: US ABDOMEN ULTRASOUND (P) from 12/02/2013 FINDINGS: Sonographic assessment utilizing grayscale and color Doppler imaging was performed and targeted to th e area of clinical concern. Images are submitted for interpretation. Thyroid gland itself was not scanned. Images reveal a multiple small lymph nodes in the right side of the neck-jugular chain. The largest of these measures 13 x 3 x 7 millimeters. There is a single lymph node on the opposite-left side whi ch measures by 4 x 5 millimeters. There are no abnormal fluid collections. IMPRESSION: Multiple small lymph nodes on the right side of the neck. No non darline masses evident on these image s. However, please note the thyroid gland was not scanned. If clinically indicated this can be perf ormed. DATA REPOSITORY:
== END 2021-02-07 01:57 ==
PROVIDERS: PCP Student in an Organized Health Care Education/Training Program; Visit Provider Student in an Organized Health Care Education/Training Program
DX: R22.1 Localized swelling, mass and lump, neck (principal); R59.0 Localized enlarged lymph nodes
CPT/HCPCS: 76536

== ENCOUNTER 2021-02-16 11:35 | Outpatient (CLI) | payer MEDICARE, BC, SELFPAY ==
--- NOTE | 2021-02-16 11:30 | RT.EKG_ITS ---
APPROVED REPORT Exam: Resting ECG Patient Location: O HR:64 bpm ECG Measurements Heart Rate 64 AXIS WA 180 P 49 QRSd 127 QRS -57 QT 410 T 10 QTc 423 Conclusion Sinus rhythm...normal P axis, V-rate 50- 99 Probable left atrial enlargement...P >50mS, <-0.10mV V1 RBBB and LAFB...QRSd >120mS, axis(-40,240) Baseline wander in lead(s) I,II,aVR,aVL,aVF
== END 2021-02-16 11:36 | disposition home or self-care (01) ==
LOC: DI.CARD 11:41
PROVIDERS: PCP Student in an Organized Health Care Education/Training Program; Referring Provider Student in an Organized Health Care Education/Training Program; Visit Provider Internal Medicine Cardiovascular Disease
DX: I10 Essential (primary) hypertension (principal); I44.4 Left anterior fascicular block; I45.19 Other right bundle-branch block
CPT/HCPCS: 93010

== ENCOUNTER → 2021-02-16 11:35 | Outpatient (BNVA) | payer MEDICARE, BC, SELFPAY | PROVIDERS: PCP Student in an Organized Health Care Education/Training Program; Referring Provider Student in an Organized Health Care Education/Training Program; Visit Provider Internal Medicine Cardiovascular Disease | DX: I10 Essential (primary) hypertension (principal); F32.9 Major depressive disorder, single episode, unspecified; E78.5 Hyperlipidemia, unspecified | CPT/HCPCS: 93005; 99204; 99215 ==

== ENCOUNTER 2021-02-16 13:17 | Outpatient (REF) | payer MEDICARE, BC, SELFPAY ==
[2021-02-16 14:23] LABS: HCT 43.1 % (40.0-50.0); HGB 15.3 g/dL (13.5-17.5); MCHC 35.5 % (32.0-36.0); MCV 90.2 fL (80-95); MPV 9.7 fL (8.0-11.0); Platelet Count 419 10^3/uL (130-400); RBC 4.78 10^6/uL (4.36-5.78); RDW 12.4 % (11.8-14.1); RDW-SD 41.4 fL; WBC 9.52 10^3/uL (4.4-10.8)
[2021-02-16 14:46] LABS: ALT 28 U/L (16-63); AST 25 U/L (15-37); Alkaline Phosphatase 107 U/L (46-116); Anion Gap 10.9 mmol/L (3-11); BUN 12 mg/dL (7-18); Bilirubin, Total 0.6 mg/dL (0.2-1.0); CO2 25.1 mmol/L (21.0-32.0); CREATININE 0.9 mg/dL (0.70-1.30); Calcium 9.3 mg/dL (8.5-10.1); Calculated LDL 128 mg/dL (<100); Chloride 101 mmol/L (98-107); Cholesterol 194 mg/dL (<200); Glucose 101 mg/dL (74-106); HDL Cholesterol 42 mg/dL (40-60); Magnesium 2.2 mg/dL (1.8-2.4); Potassium 4.4 mmol/L (3.5-5.1); Sodium 137 mmol/L (136-145); TSH (W/Ref FT4) 2.49 uIU/mL (0.36-3.74); Total Protein 7.5 g/dL (6.4-8.2); Triglyceride 122 mg/dL (<150)
== END 2021-02-16 13:18 | disposition home or self-care (01) ==
LOC: LBN 13:17
PROVIDERS: PCP Student in an Organized Health Care Education/Training Program; Visit Provider Student in an Organized Health Care Education/Training Program
DX: K31.84 Gastroparesis (principal); E78.5 Hyperlipidemia, unspecified; I10 Essential (primary) hypertension; E46 Unspecified protein-calorie malnutrition; K31.1 Adult hypertrophic pyloric stenosis; R73.09 Other abnormal glucose
CPT/HCPCS: 80053; 80061; 85027; 83735; 84443

== ENCOUNTER 2021-03-01 01:47 | Outpatient (CLI) | payer MEDICARE, BC, SELFPAY ==
--- NOTE | 2021-03-01 07:25 | DI.US_ITS ---
APPROVED REPORT EXAM: Comprehensive 2D, Doppler, and color-flow Echocardiogram Patient Location: Out-Patient Outsole Compressor: Cristal Cabrera RDCS (AE) Indications: Recent increase in blood pressure, Tachycardia, HTN Other Information Study Quality: Adequate Conclusion Normal left ventricular wall thickness and chamber size. Estimated ejection fraction is 60%. There are no segmental wall motion abnormalities Normal right ventricular size and systolic function Both atria are normal in size The aortic valve is trileaflet and sclerotic with trace regurgitation. No aortic stenosis The tricuspid, pulmonic, and mitral valves are structurally normal There is trace tricuspid and mitral regurgitation Right ventricular systolic pressure could not be estimated Mildly dilated ascending aorta measuring 3.68 cm Wall motion Left Ventricle The left ventricle is normal size. The left ventricular systolic function is normal. The left ventric ular ejection fraction is within the normal range. There is normal left ventricular wall thickness. T here is normal LV segmental wall motion. There is no ventricular septal defect visualized. LVEF is 60 %. Right Ventricle The right ventricle is normal size. The right ventricular systolic function is normal. Atria The left atrium size is normal. The right atrium size is normal. The interatrial septum is intact wit h no evidence for an atrial septal defect. Aortic Valve The Aortic valve is sclerotic. Aortic valve is trileaflet. There is no aortic valvular stenosis. Trac e aortic regurgitation. Mitral Valve The mitral valve is normal in structure. No evidence of mitral valve stenosis. Trace mitral regurgita tion. Tricuspid Valve The tricuspid valve is normal in structure. There is no tricuspid valve stenosis. Trace tricuspid reg urgitation. Unable to assess PA pressure. Pulmonic Valve Pulmonic valve is grossly normal in structure. There is no pulmonic valvular stenosis. There is no pu lmonic valvular regurgitation. Great Vessels The aortic root is normal in size. The ascending aorta is mildly dilated. Aortic arch is not well vis ualized. IVC is normal in size and collapses >50% with inspiration. Pericardium There is no pericardial effusion. 2D Dimensions IVSD d PLAX 1.04 cm M: 0.6-1.2 LV Vol A2C d MOD 138.6 mL LVPW d PLAX 1.02 cm M: 0.6 - 1.2 LV Vol A4C d MOD 119.3 mL LVID d PLAX 4.64 cm M: 4.2 - 5.8 LA vol/ BSA A2C s A-L 22.3 mL/m2 LVDs 3.15 cm M: 2.5 - 4.0 LA vol/ BSA A4C s A-L 14.0 mL/m2 Ao Root d 3.10 cm M: 3.1 - 3.7 LA Vol/ BSA Biplane s A-L 20.0 mL/m2 RA Area A4C 17.41 cm2 LA Area A4C s MOD 12.53 cm2 RA Vol/ BSA A4C s A-L 24.0 mL/m2 LA Area A2C s MOD 17.88 cm2 Ao Asc Diam d 3.68 cm M: 2.6 - 3.4 LV EF A4C MOD 59.2 % LV EF Teichholz 60.0 % LV EF A2C MOD 59.4 % LVEF (Sahu's) 58.16 % M: 52 - 72 LV EF Biplane MOD 58.2 % LV Volume 94.88 mL M: 62 - 150 SV 76.01 mL LV Volume Index 42.93 mL/m2 M: 34 - 74 SV Index 34.36 mL/m2 LV Vol Biplane MOD 130.7 mL FS 31.90 % M-Mode TAPSE 2.53 cm (M/F) >1.7 LV Diastology MV E' medial 0.073 (>0.07 m/s) E/A Ratio 0.7 LV E/e MED 7.95 (<14) MV E Vmax 0.58 (0.4-1.3 m/s) MV E' lateral 0.140 (>0.1 m/s) MV A Vmax 0.80 (0.4-1.3 m/s) LV E/e LAT 4.15 (<14) MV E/A Ratio 0.73 MV E/E' medial 7.97 MV E/E' lateral 4.18 Aortic Valve LVOT Area 3.74 cm2 AoV Area Vmax 2.57 cm2 LVOT Vmax 1.18 m/s AoV Area/ BSA (Vmax) 1.16 cm2/m2 LVOT Mean Kenneth. 0.78 m/s LYLE Mean Kenneth. 2.69 cm2 LVOT Peak Grad 5.6 mmHg LYLE Mean Kenneth. Index 1.21 cm2/m2 LVOT Mean Grad 2.9 mmHg AR DT 2722 msec LVOT VTI 0.245 m AR PHT 789 msec LVOT Diam s 2.15 cm AoV Vmax 1.72 m/s Velocity Ratio 0.68 AoV Mean Kenneth. 1.09 m/s AoV Peak Grad 11.8 mmHg LVOT SV 91.78 mL AoV Mean Grad 5.6 mmHg AoV VTI 0.296 m AoV Area VTI 3.10 cm2 AoV Area/ BSA (VTI) 1.40 cm/m2 Mitral Valve MV DT 247 (160-240 msec) MV PHT 72 msec MV Area PHT 3.08 cm2 MV VTI 0.236 m MV VTI Annulus 0.234 m MV Area VTI 3.85 (4.0-6.0 cm2) Pulmonary Valve PV Vmax 1.17 (0.5-1.5 m/s) RVOT Peak Gr. 1.80 mmHg PV Peak Grad 5.5 mmHg RVOT Mean Gr. 0.90 mmHg PV Mean Grad 2.8 mmHg RVOT VTI 0.131 m PV VTI 0.220 m RVOT Vmax 0.67 m/s
== END 2021-03-01 02:07 ==
PROVIDERS: PCP Student in an Organized Health Care Education/Training Program; Visit Provider Student in an Organized Health Care Education/Training Program
DX: I10 Essential (primary) hypertension (principal); R00.0 Tachycardia, unspecified; I34.0 Nonrheumatic mitral (valve) insufficiency; I77.810 Thoracic aortic ectasia
CPT/HCPCS: 93306

== ENCOUNTER 2021-03-01 01:47 | Outpatient (CLI) | payer MEDICARE, BC, SELFPAY ==
--- NOTE | 2021-03-01 07:30 | DI.RAD_ITS ---
EXAM: RF JOINT INJECTION FLUORO GUID CLINICAL HISTORY: L SHOULDER INJ UNDER FLUORO,BURSITIS LT SHOULDER, M75.52 TECHNIQUE: Fluoroscopy provided. Radiologist not present. CONTRAST MATERIAL: None COMPARISON: No exams were available for comparison FINDINGS: Fluoroscopy was provided for Dr. Chadwick during . Submitted image(s) reveal needle placement at the superomedial aspect of the humeral head. Injected contrast is seen intra-articular antra acting down the biceps tendon sheath within the intertubercula r groove. There is also a sliver of contrast in subacromial space which is horizontally orientated. This may reflect significant rotator cuff pathology. Please refer to the procedure report for complete details. Fluoro time: 18 seconds. Cumulative Dose: 3.47 mGy IMPRESSION: RADIATION DOSE DELIVERED: hakeem Dunlap= mGy
[2021-03-01] MEDS: Bupivacaine 0.5% Pres-Free 10 ML VIAL IJ (13:23)
[2021-03-01] MEDS: Omnipaque 300 MG/ML 10 ML BTL IJ (13:23)
[2021-03-01] MEDS: methylPREDNISolone ACETATE 80 MG/ML VIAL IM (13:24)
--- NOTE | 2021-03-01 13:36 | OPPNE_ITS ---
Date of service: 03/01/21 Time of Service: 13:20 Procedure Note Date of procedure: 03/01/21 Procedure: Left Shoulder Injection Surgeon/Proceduralist/Physician: Jose Carlos Chadwick Procedure Diagnosis: Left Biceps Tendinitis Procedure Indications: Sylvain has had persistent pain of the LEFT shoulder. Noninvasive measures have been tried. To serve as both diagnostic and therapeutic, an injection under fluoroscopy was recommended. He had previous success with an intra-articular injection. I had discussed the risks of the procedure and the patient elected to proceed. Procedure Description: Sylvain was greeted in the flouroscopy room. The correct side was identified and the consent was reviewed with the patient and signed. The patie nt was then placed in the supine position on the fluoroscopy table. The LEFT shoulder was then prepped with Chloraprep. The anterior injection starting point was identiifed by bony landmarks and fluoroscopy. The skin and soft tissue in the tract of the injection was anesthetized with 1% Lidocaine. A spinal needle was then inserted deep into the shoulder joint at the level of the recess between the glenoid and superior humeral head. A small amount of Omnipaque solution was injected to confirm intraarticular placement. Once confirmed, the shoulder was injected with 4cc of 0.5% Bupivicaine and 80mg of Depo-Medrol. A bandaid was placed on the injection site. The patient tolerated the procedure well and noted improvement in pre-injection pain.
== END 2021-03-01 02:07 ==
PROVIDERS: PCP Student in an Organized Health Care Education/Training Program; Visit Provider Student in an Organized Health Care Education/Training Program
DX: M75.22 Bicipital tendinitis, left shoulder (principal); M25.512 Pain in left shoulder; I10 Essential (primary) hypertension; R00.0 Tachycardia, unspecified; I34.0 Nonrheumatic mitral (valve) insufficiency; I77.810 Thoracic aortic ectasia
CPT/HCPCS: 20610; 77002; 93306; J1040

== ENCOUNTER 2021-03-15 01:12 | Outpatient (CLI) | payer MEDICARE, BC, SELFPAY ==
--- NOTE | 2021-03-15 06:30 | DI.US_ITS ---
EXAM: US THYROID CLINICAL HISTORY: r/o thyroid pathology, neck fullness, r22.1. TECHNIQUE: Ultrasound thyroid performed using standard protocol. COMPARISON: US US ECHOCARDIOGRAM from 03/01/2021 FINDINGS: RIGHT THYROID LOBE: Measures 2 cm AP x 1.5 cm wide x 4.7 cm craniocaudal. There is a solitary finding in the right lobe which is a nodule located inferiorly. This is a solid nodule which in the transverse plane is taller than wider, measuring 1.3 cm AP by 1 cm wide. The nod ule is hypoechoic when compared to the surrounding thyroid glandular tissue. Contains a shadowing ma crop adjuster calcification. Smooth border. No obvious extrathyroidal extension. Total points for this nodule=8 / TiRads 5 ISTHMUS: Normal thickness. There are no nodules in the isthmus. LEFT THYROID LOBE: Measures 1.6 cm AP x to wide x 4.4 cm craniocaudal No nodules evident the left lobe. LYMPH NODES: Small benign-appearing lymph nodes are noted in both sides of the neck. There is no rola ss lymphadenopathy.. IMPRESSION: 1. There is a solitary thyroid nodule which is located inferiorly in the right lobe and is a suspicio us nodule with a total of 8 points byTiRads criteria. TiRads: 5 FNA is recommend. 2. Small benign-appearing lymph nodes both sides of neck. DATA REPOSITORY:
== END 2021-03-15 01:32 ==
PROVIDERS: PCP Student in an Organized Health Care Education/Training Program; Visit Provider Student in an Organized Health Care Education/Training Program
DX: R22.1 Localized swelling, mass and lump, neck (principal); E04.1 Nontoxic single thyroid nodule
CPT/HCPCS: 76536

== ENCOUNTER → 2021-04-02 09:57 | Outpatient (BNVA) | payer MEDICARE, BC, SELFPAY | PROVIDERS: PCP Student in an Organized Health Care Education/Training Program; Referring Provider Student in an Organized Health Care Education/Training Program; Visit Provider Internal Medicine Cardiovascular Disease | DX: I10 Essential (primary) hypertension (principal); R42 Dizziness and giddiness | CPT/HCPCS: 99213 ==

== ENCOUNTER 2021-04-24 02:27 | Outpatient (CLI) | payer MEDICARE, BC, SELFPAY ==
--- NOTE | 2021-04-24 | DI.CT_ITS ---
Exam(s) CT NECK W EXAM: CT NECK W CLINICAL HISTORY: CERVICALGIA,M54.2. TECHNIQUE: Imaging Protocol: Axial computed tomography images with coronal and sagittal reformatted images were created and reviewed. CONTRAST MATERIAL: Intravenous: Omnipaque 350 Contrast volume:100 mL COMPARISON: CR CERV SP WITH OBL FLEX/EXT from 03/10/2018 FINDINGS: Visualized orbits and orbital soft tissues: Within normal limits. Visualized paranasal sinuses: Within normal limits. Nasopharynx: Within normal limits. Oropharynx: Within normal limits. Hypopharynx: Within normal limits. Larynx: Within normal limits. Retropharyngeal space: Within normal limits. Parotids/submandibular: Within normal limits. Thyroid gland: There is a 1 cm peripherally calcified right thyroid mass. Lymphadenopathy: There is scattered lymph nodes seen along the level one to level three all measurin g less than 8 mm in short axis diameter which are physiologic in nature. Trachea: Within normal limits. Lung apices: Mild emphysematous changes are seen in the lung apices. Bones: The patient is status post anterior cervical disc fusion at C4-C5. There is disc space narrow ing from C3-C4 to C6-C7. Mild neural foraminal narrowing is seen on the right at C7-T1 and on the le ft at C5-C6. No significant central spinal canal stenosis is seen. Carotids/Jugular: Mild atherosclerosis. Soft tissues: Within normal limits. IMPRESSION: 1. Moderate degenerative changes in the cervical spine. 2. 1 cm peripherally calcified right thyroid mass. Nonemergent thyroid ultrasound should be consider ed for further evaluation. 3. Mild emphysematous changes in the lung apices. 4. Status post anterior cervical disc fusion at C4-5. RADIATION DOSE DELIVERED: 728.78mGy.cm Total DLP 728.78mGy.cm Total DLP DATA REPOSITORY: All CT scans at this facility are submitted to the National Radiology Data Registry (NRDR) Dose Index Registry (DIR) with the [employer] ([employer]). RADIATION OPTIMIZATION: All CT scans at this facility use at least one of these dose optimization te chniques: automated exposure control; mA and/or kV adjustment per patient size (includes targeted exa ms where dose is matched to clinical indication); or iterative reconstruction.
[2021-04-24 08:17] LABS: CREATININE 0.8 mg/dL (0.70-1.30)
[2021-04-24] MEDS: Omnipaque 350 MG/ML 100 ML BTL IJ (09:15)
[2021-04-24] MEDS: Normal Saline - Diluent 50 ML VIAL IV (09:16)
== END 2021-04-24 02:47 ==
PROVIDERS: PCP Student in an Organized Health Care Education/Training Program; Visit Provider Otolaryngology
DX: M54.2 Cervicalgia (principal); Z98.1 Arthrodesis status; E07.9 Disorder of thyroid, unspecified; R59.0 Localized enlarged lymph nodes; M50.31 Other cervical disc degeneration, high cervical region; M50.323 Other cervical disc degeneration at C6-C7 level
CPT/HCPCS: 70491; 82565; J3490

== ENCOUNTER 2021-05-18 02:45 | Outpatient (CLI) | payer MEDICARE, BC, SELFPAY ==
--- NOTE | 2021-05-18 07:00 | DI.RAD_ITS ---
Exam(s) RF BARIUM SWALLOW EXAM: RF BARIUM SWALLOW CLINICAL HISTORY: Evaluate swallowing; establish baseline dysphagia, fullness neck, R13.10 TECHNIQUE: COMPARISON: CR XR CHEST 2V PA LATERAL from 10/11/2018 FINDINGS: Preliminary films of the chest and neck were obtained. There is a C4-5 level anterior cervical fusio n with plate and screw fixation. There is no evidence of deformity of the adjacent hypopharynx. Barium was ingested and shows no evidence of obstruction there is apparent contour deformity at the l evel of the epiglottis and area epiglottic fold and in the proximal cervical esophagus which persists on multiple images. No gross mucosal irregularity seen at this level. At the level of the previous ly noted anterior cervical fusion, there is a small persistent irregular anterior defect in the wall of the cervical esophagus, possibility of mucosal lesion at this site could not be excluded. Thoracic esophagus shows normal mucosa to the level of the distal esophagus. There is a widely paten t lower esophageal ring and a moderate-sized axial hiatal hernia. IMPRESSION: Question mucosal ulceration anteriorly at the C4-5 level of the proximal cervical esophagus. Note is also made of deformity at the level of the epiglottis and aryepiglottic folds which could represent mucosal lesion. Correlation with esophagoscopy is recommended to exclude neoplasm. RADIATION DOSE DELIVERED: Fluoro dose was 26.2 mGy. Total DLP
[2021-05-18] MEDS: Barium Sulfate 60% W/V 355 ML BTL PO (10:42)
== END 2021-05-18 03:05 ==
PROVIDERS: PCP Student in an Organized Health Care Education/Training Program; Visit Provider Student in an Organized Health Care Education/Training Program
DX: J38.7 Other diseases of larynx (principal); R22.1 Localized swelling, mass and lump, neck; R13.10 Dysphagia, unspecified
CPT/HCPCS: 74221

== ENCOUNTER 2021-05-29 09:00 | Outpatient (CLI) | payer MEDICARE, BC, SELFPAY ==
--- NOTE | 2021-05-29 08:45 | DI.RAD_ITS ---
Exam(s) XR SHOULDER LT COMPLETE 2+V EXAM: XR SHOULDER LT COMPLETE 2+V CLINICAL HISTORY: left shoulder pain. TECHNIQUE: 2D digital imaging was performed. COMPARISON: MR MR UPPER JOINT LT WO from 11/03/2020 FINDINGS: BONES: No acute fracture is present. A subchondral cyst is noted in the inferior glenoid. This was s een on previous MRI. JOINTS: No dislocation present. Mild degenerative changes at the glenohumeral joint and AC joint. SOFT TISSUE: Normal. IMPRESSION: Mild degenerative changes. DATA REPOSITORY: RADIATION DOSE DELIVERED:
== END 2021-05-29 09:01 | disposition home or self-care (01) ==
LOC: DIORS 09:00
PROVIDERS: PCP Student in an Organized Health Care Education/Training Program; Referring Provider Student in an Organized Health Care Education/Training Program; Visit Provider Student in an Organized Health Care Education/Training Program
DX: M25.512 Pain in left shoulder (principal); M75.102 Unspecified rotator cuff tear or rupture of left shoulder, not specified as traumatic; M75.22 Bicipital tendinitis, left shoulder; M19.012 Primary osteoarthritis, left shoulder
CPT/HCPCS: 99214; 99215; 73030

== ENCOUNTER 2021-06-12 03:48 | Outpatient (CLI) | payer MEDICARE, BC, SELFPAY ==
[2021-06-12 08:42] LABS: HCT 42.7 % (40.0-50.0); HGB 14.4 g/dL (13.5-17.5); MCH 31.2 pg (27.0-33.0); MCHC 33.7 % (32.0-36.0); MCV 92.6 fL (80-95); MPV 8.5 fL (8.0-11.0); Platelet Count 393 10^3/uL (130-400); RBC 4.61 10^6/uL (4.36-5.78); RDW 12.6 % (11.8-14.1); RDW-SD 43.1 fL
[2021-06-12 09:31] LABS: ALT 30 U/L (16-63); AST 20 U/L (15-37); Albumin 3.8 g/dL (3.4-5.0); Alkaline Phosphatase 84 U/L (46-116); Anion Gap 9.6 mmol/L (3-11); BUN 11 mg/dL (7-18); Bilirubin, Total 0.3 mg/dL (0.2-1.0); CO2 28.4 mmol/L (21.0-32.0); CREATININE 0.8 mg/dL (0.70-1.30); Calcium 8.9 mg/dL (8.5-10.1); Calculated LDL 95 mg/dL (<100); Chloride 102 mmol/L (98-107); Cholesterol 190 mg/dL (<200); Glucose 130 mg/dL (74-106); HDL Cholesterol 39 mg/dL (40-60); Potassium 4.2 mmol/L (3.5-5.1); Sodium 140 mmol/L (136-145); Total Protein 7.1 g/dL (6.4-8.2); Triglyceride 280 mg/dL (<150)
== END 2021-06-12 03:49 | disposition home or self-care (01) ==
LOC: LBO 03:49
PROVIDERS: PCP Student in an Organized Health Care Education/Training Program; Visit Provider Student in an Organized Health Care Education/Training Program
DX: I10 Essential (primary) hypertension (principal); R73.01 Impaired fasting glucose; E78.5 Hyperlipidemia, unspecified
CPT/HCPCS: 36415; 80053; 80061; 85027

== ENCOUNTER → 2021-07-03 10:13 | Outpatient (BNVA) | payer MEDICARE, BC, SELFPAY | PROVIDERS: PCP Student in an Organized Health Care Education/Training Program; Referring Provider Student in an Organized Health Care Education/Training Program; Visit Provider Student in an Organized Health Care Education/Training Program | DX: M75.102 Unspecified rotator cuff tear or rupture of left shoulder, not specified as traumatic (principal); M75.22 Bicipital tendinitis, left shoulder; M19.012 Primary osteoarthritis, left shoulder | CPT/HCPCS: 99214 ==

== ENCOUNTER 2021-07-25 03:36 | Outpatient (CLI) | payer MEDICARE, BC, SELFPAY ==
[2021-07-25 12:56] LABS: Source Nasal/Nares
[2021-07-25 17:56] LABS: COVID-19 PCR Negative (Negative)
== END 2021-07-25 03:37 | disposition home or self-care (01) ==
LOC: LBO 03:36
PROVIDERS: PCP Student in an Organized Health Care Education/Training Program; Visit Provider Student in an Organized Health Care Education/Training Program
DX: Z20.822 Contact with and (suspected) exposure to COVID-19 (principal); Z01.818 Encounter for other preprocedural examination
CPT/HCPCS: 87635

== ENCOUNTER 2021-07-27 06:02 | Day surgery (SDC) | payer MEDICARE, BC, SELFPAY ==
--- NOTE | 2021-07-26 18:44 | W.ANESPRE ---
General Info Date of Service Date Performed: 07/27/21 Height: 5 ft 9 in Weight: 108.862 kg Body Mass Index (BMI): 35.4 Surgical Procedure: Operation Date: 07/27/21 07:40 Proposed Procedures Side Surgeon p Shoulder Rotator Cuff Arthroscopic, ext chandni, subacromial decompression, distal clavicle excision Left Wesley Cavazos MD Meds Allergies and Home Medications Allergies Allergy/AdvReac Type Severity Reaction Status Date / Time Penicillins Allergy Intermediate rash Verified 07/27/21 06:16 Home Medication Medication Instructions Recorded ibuprofen 800 mg PO Q4H PRN tab-cap 09/10/16 Nexium 24HR 20 mg PO DAILY 05/14/17 inhalational spacing device #1 ea 09/16/20 sildenafil 100 mg tablet 100 mg PO DAILY PRN #12 tab 11/07/20 atorvastatin 20 mg tablet 20 mg PO DAILY #90 tab 01/09/21 loratadine 10 mg tablet 10 mg PO DAILY #90 tab 01/09/21 venlafaxine 75 mg tablet,extended 150 mg PO DAILY tab-cap 02/16/21 release 24 hr fluticasone propionate 50 2 spray INTRANASAL DAILY #16 g 02/28/21 mcg/actuation nasal spray,suspension hydrochlorothiazide 12.5 mg tablet 12.5 mg PO DAILY #90 tab 04/02/21 losartan 25 mg tablet 50 mg PO BID #180 tab 04/02/21 albuterol sulfate 90 mcg/actuation 2 puff IH QID PRN #18 gm 04/12/21 aerosol inhaler turmeric 400 mg capsule See Rx Instructions PO DAILY cap 04/17/21 amlodipine 10 mg tablet 10 mg PO DAILY tab 07/03/21 Current Visit Medications: Current Medications Generic Name Dose Route Start Last Admin Trade Name Freq PRN Reason Stop Dose Admin Ringer's Solution 1,000 mls @ 100 mls/hr 07/27/21 06:00 IV 08/25/21 23:59 INFUSION FADIA Cefazolin Sodium 2,000 mg/ 100 mls @ 200 mls/hr 07/27/21 06:00 Sodium Chloride IVPB 07/27/21 23:59 PREOP FADIA IV Miscellaneous Supplies 1 each 07/27/21 06:00 Iv Access IV 08/25/21 23:59 DIRECTED FADIA Sodium Chloride 0 ml 07/27/21 06:00 Normal Saline Flush 10 Ml Syr IV 08/25/21 23:59 PRN PRN Sodium Chloride 0 ml 07/27/21 06:00 Normal Saline 10 Ml Vial IJ 08/25/21 23:59 DIRECTED PRN Sterile Water 0 ml 07/27/21 06:00 Water,Injection,Sterile 10 Ml Vial IJ 08/25/21 23:59 DIRECTED PRN PFSH Active Problems Active Problems: Problem Status Onset Code Gastroesophageal reflux disease without esophagitis K21.9 Schatzki's ring K22.2 Right thyroid nodule E04.1 Pharyngoesophageal dysphagia R13.14 Cervicalgia M54.2 Throat discomfort R07.0 Right thyroid nodule E04.1 Nausea R11.0 Osteoarthritis of left AC (acromioclavicular) joint M19.012 Tendinitis of long head of biceps brachii of left shoulder M75.22 Left rotator cuff tear M75.102 Dysphagia R13.10 Left shoulder pain M25.512 Thyroid nodule greater than or equal to 1 cm in diameter incidentally noted on imaging study E04.1 Hypertension I10 Posterior subcapsular age-related cataract of left eye H25.042 Nuclear sclerotic cataract of left eye H25.12 Posterior subcapsular age-related cataract, right eye H25.041 Nuclear sclerotic cataract of right eye H25.11 Cubital tunnel syndrome on left G56.22 Gastroparesis 09/29/13 K31.84 Gastric outlet obstruction 09/29/13 K31.1 Hiatal hernia K44.9 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 Hyperlipidemia E78.5 Seasonal allergies J30.2 Reactive airway disease J45.909 Hypertension I10 History of peptic ulcer disease Z87.11 Muscle spasms of neck M62.838 Hypogonadism [id number] Abdominal pain 09/03/13 R10.9 Acne 12/13/11 L70.9 Ankle edema 12/13/11 M25.473 Disorder of function of stomach 05/01/12 K31.9 Diverticulitis of colon 12/13/11 K57.32 Headache 12/13/11 R51 Hyperlipidemia 03/17/01 E78.5 Hyperplastic polyp of intestine 12/13/11 K63.5 Lumbago 12/13/11 M54.5 Midline low back pain without sciatica 12/13/11 M54.5 Mucous cyst of finger 12/11/15 M67.449 Obesity, unspecified 12/13/11 E66.9 Osteoarthrosis-multiple sites 12/13/11 M15.9 Pain in upper limb 11/08/13 M79.603 Spondylosis of cervical region without myelopathy or radiculopathy 06/17/16 M47.812 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 Urinary frequency 04/16/16 R35.0 Precancerous lesion 12/13/11 D49.9 Skin lesion L98.9 Duodenal ulcer disease 12/13/11 K26.9 Cubital tunnel syndrome on right G56.21 Carpal tunnel syndrome of right wrist G56.01 Chronic cough R05 Chronic rhinitis J31.0 Post-nasal drip R09.82 Stopped smoking with greater than 30 pack year history Z87.891 Hyperplastic colon polyp K63.5 Sessile colonic polyp K63.5 Carpal tunnel syndrome, left G56.02 Bursitis of left shoulder M75.52 Injury of left rotator cuff S46.002A Injury of right rotator cuff S46.001A Wrist pain, left M25.532 Depression F32.9 Depressive disorder 12/13/11 F32.9 Medical History Medical History ACL tear (03/30/14) Acne (04/12/09) Cervicalgia Degenerative joint disease (04/12/09) 04/11/17 Sacroiliac joint injection-[facility] Depression oN vENLAFAXINE Depressive disorder (12/13/11) Diverticula of colon (12/28/09) Dysphagia Solid food dysphagia per GI, 06/2021 (EGD/quest dysmotility 2' ortho surg).. Recent Hx swallowing difficulties ... does NOT seem related to thyroid nodule which will be monitored via US by ENT, PCP. Erectile dysfunction (11/20/05) Head ache (03/17/01) History of esophageal dilatation (06/28/21) RONALD Treadwell Hyperlipidemia (03/17/01) Hyperplastic polyp of large intestine (09/17/06) Hypertension (05/26/09) Hypogonadism, male (11/20/05) Left shoulder pain Acute on chronic. Post 2 steroid injections. Low back pain (04/24/09) 02/07/17 Sp[facility] Center lumbar spondylosis Nausea Long Hx of waves of nausea .. Obesity (03/17/01) Peptic ulcer disease (08/17/02) Precancerous skin lesion (11/14/10) lower lip Right thyroid nodule Schatzki's ring per EGD, 06/2021 (dilated to 20mm w/ heme), LR GI. Tear of PCL (posterior cruciate ligament) of knee (03/30/14) Throat discomfort Thyroid nodule greater than or equal to 1 cm in diameter incidentally noted on imaging study Rt Lobe 1.3x1cm solid nodule. [ ] ENT, Dr. Bowser requested by pt's . Wrist pain, left Probable CT, [ ] Ortho (Hx nerve testing, painful!) Surgical History Surgical History Cholecystectomy (11/12/06) Lap [facility] Cubital tunnel syndrome on left s/p cubital tunnel decompression DOS: 11/15/2020 cubital/carpal tunnel release (11/03/14) R side Dr Walker disc repair L4-5 (04/18/00) Dr Olson elbow repair right (09/17/07) H/O arthroscopy of right knee partial lateral meniscectomy History of esophagogastroduodenoscopy (EGD) (06/28/21) with biopsy [facility] left elbow fasciotomy (04/23/07) perianal fistula repair (09/25/10) Postoperative CSF leak repair 07/30/19 Amy Marrero Day following lumbar surgery on 07/26/19 Repair of umbilical hernia (08/31/10) Right small ginfer cyst (05/01/16) [place] (10/01/09) upper teeth Vasectomy (04/28/07) Tobacco Smoking/Tobacco Use Status: Former Tobacco Use Tobacco: How many years used: 30 Alcohol Alcohol Intake: former Substance Use Substance use: Never Substance use type: does not use Vital Signs and Lab Results Vital Signs Most Recent Vital Signs in EMR: Temp Pulse Resp BP Pulse Ox 36.5 C 68 16 138/88 98 07/27/21 06:31 07/27/21 06:31 07/27/21 06:31 07/27/21 06:31 07/27/21 06:31 Lab Results Blood Type / Crossmatch: No Data to Display Complete Blood Count: No Data to Display Complete Metabolic Panel: No Data to Display Liver Function Panel: No Data to Display Coagulation Panel: No Data to Display Cardiac Panel: No Data to Display Arterial Blood Gas: No Data to Display Venous Blood Gas: No Data to Display Pancreas Panel: No Data to Display Thyroid Panel: No Data to Display Infectious Disease: Coronavirus (COVID-19)(PCR) Negative (Negative) 07/25/21 10:27 07/25/21 Coronavirus 2019 Source Nasal/Nares 07/25/21 10:27 07/25/21 Blood Cultures: No Data to Display Toxicology Panel: No Data to Display Imaging and Studies Imaging and Studies Echocardiogram Summary: 02/2021: LVEF 60%trace TR and MR. mild dilated ascending Ao 3.68 cm. Anesthesia Assessment and Plan Anesthesia History Personal History: No History of Anesthesia Complications Family History: No Family History of Anesthesia Complications Exercise Tolerance Exercise Tolerance: Metabolic Equivalents>4 Cardiac & Pulmonary Exam Cardiac Exam: Normal S1/S2 Heart Sounds Pulmonary Exam: Clear Bilateral Breath Sounds Airway Exam Known Difficult Airway: No Mallampati Class: 2 Mouth Opening: Normal (> 3cm) Thyromental Distance: Greater than 3 cm Neck Range of Motion: Limited ROM Neck Circumference: Thick Teeth Condition: Edentulous ASA Classification ASA Score: ASA 2 Emergency Case?: No NPO Status NPO Status: NPO Clears >2 hours, Solids >8 hours Anesthesia Plan Resuscitation Status: Full Code Anesthesia Technique: General Anesthesia Airway Planned: Endotracheal Tube Pain Management: Surgeon and patient request nerve block Monitors Used: Standard Monitors Preoperative Comments:: 61 yo male for RTC repair. PMHx for HTN (HCTZ/amlodipine/losartan), dysphagia (recent EGD with dilation), ACDF C4/5. Previous Mac 4 grade 1, easy mask. Plan for GA, ISB/SFCPB.
[2021-07-27] VITALS (9 sets, daily range): BP systolic 97–138; BP diastolic 55–88; PULSE 66–72; RESP 16–29; TEMP 36.2–36.8; O2SAT 95–98; BMI 35.4
[2021-07-27] MEDS: Lactated Ringers 1,000 ML 100 ML IV (07:00)
[2021-07-27] MEDS: ceFAZolin 2,000 MG in Normal Saline 100 ML 200 MG IVPB (07:38)
--- NOTE | 2021-07-27 07:45 | ANES.NERVE_ITS ---
Nerve Block Single Injection Procedure Date and Time Date Performed: 07/27/21 Procedure Start: 07:15 Location Where Procedure Performed Procedure Location: PACU Reason Performed: Postoperative Analgesia Requesting Provider: Wesley Cavazos Timeout Performed Timeout Performed: Yes Monitoring Used ECG, Blood Pressure, SpO2 and ETCO2 Sterility Sterility: Hand Hygiene, Surgical Cap, Surgical Mask and Sterile Gloves Sedation Given During Procedure Sedation Given (Indicate Dose Given): Versed IV Dose:: 2 mL Patient Mental Status Patient Mental Status: Sedate with meaningful communication Nerve Block 1st Nerve Block: Laterality: Left Block Type: Interscalene Needle / Catheter Used: 100mm SonoPlex II Local Anesthetic Bolus (Indicate Dose Given): Lidocaine used for local infiltration of skin, Injected in 3-5ml increments after negative blood aspiration, Bupivacaine 0.5% Dose:: 13 mL and Exparel Dose:: 7 mL Additives (Indicate Dose Given): None Ultrasound: Sterile probe cover and gel used Ultrasound Image Saved?: Yes Nerve Stimulator: Not Used Paresthesia: None Procedure Tolerated: No Complications Procedure Outcome: Successful Performed By: Jens Ramirez 2nd Nerve Block: Laterality: Left Block Type: Superficial Cervical Plexus Needle / Catheter Used: 100mm SonoPlex II Local Anesthetic Bolus (Indicate Dose Given): Lidocaine used for local infiltration of skin, Injected in 3-5ml increments after negative blood aspirati on, Bupivacaine 0.5% Dose:: 4 mL and Exparel Dose:: 3 mL Additives (Indicate Dose Given): None Ultrasound: Sterile probe cover and gel used Ultrasound Image Saved?: Yes Nerve Stimulator: Not Used Paresthesia: None Procedure Tolerated: No Complications Procedure Outcome: Successful Performed By: Jens Ramirez
[2021-07-27] MEDS: EPINEPHrine 30 MG/30 ML VIAL (09:19)
--- NOTE | 2021-07-27 10:40 | W.PM.DSUDISC ---
Discharge Plan Disposition Patient Disposition: HOME Condition: Stable Discharge Details Reason For Visit: Left shoulder surgery Attending Provider: Wesley Cavazos Primary Care Provider: Jaymie Ramirez Home Meds and New Rx's Prescriptions: New naproxen 250 mg tablet 250 - 500 mg PO BID PRN (Reason: Moderate pain or swelling) Qty: 30 RF: 0 aspirin 81 mg tablet,delayed release (DR/EC) 81 mg PO DAILY 14 Days Qty: 14 RF: 0 oxycodone 5 mg tablet 5 - 10 mg PO Q4H PRN (Reason: moderate to severe pain) Qty: 16 RF: 0 Continued venlafaxine 75 mg tablet extended release 24hr 150 mg PO DAILY RF: 0 hydrochlorothiazide 12.5 mg tablet 12.5 mg PO DAILY Qty: 90 RF: 6 losartan 25 mg tablet 50 mg PO BID Qty: 180 RF: 6 turmeric 400 mg capsule See Rx Instructions PO DAILY RF: 0 (DME) Flexichamber Spacer See Rx Instructions .ROUTE .MEDSUPPLY Qty: 1 RF: 0 loratadine 10 mg tablet 10 mg PO DAILY Qty: 90 RF: 3 atorvastatin [Lipitor] 20 mg tablet 20 mg PO DAILY Qty: 90 RF: 3 fluticasone propionate 50 mcg/actuation spray,suspension 2 spray intranasal DAILY Qty: 16 RF: 0 amlodipine 10 mg tablet 10 mg PO DAILY RF: 0 Nexium 24HR 20 MG tablet,delayed release (DR/EC) 20 mg PO DAILY RF: 0 sildenafil [Viagra] 100 mg tablet 100 mg PO DAILY PRN (Reason: sexual activity) Qty: 12 RF: 3 albuterol sulfate 90 mcg/actuation HFA aerosol inhaler 2 puff IH QID PRN (Reason: shortness of breath) Qty: 18 RF: 1 Discontinued ibuprofen 200 MG capsule 800 mg PO Q4H PRN RF: 0 Discharge Instructions Additional Instructions: Surgery: Shoulder arthroscopy with rotator cuff repair, biceps tenodesis, extensive debridement, subacromial decompression, and distal clavicle excision. Activity: You should keep your arm at your side in a neutral position at all times except for physical therapy. Do not try to lift or raise your arm using your own muscles. You should use the sling whenever you are out of the house. You may have to adjust the abduction pillow or remove it for comfort. At home it is best to remove the sling and rest the arm on a pillow at your side or support the operative side with your other hand. You may allow the arm to dangle at your side. A physical therapy prescription will be sent electronically to begin in 2-3 weeks. Prescriptions: Aspirin 81 mg take 1 daily to prevent a blood clot for 2 weeks Naproxen 250 mg take 1-2 every 12 hours with a meal as needed for moderate pain (stop taking and let us know if you develop stomach/GI pain or issues) Oxycodone 5 mg take 1-2 every 4-6 hours as needed for severe pain You may use [id number] Tylenol (acetaminophen) as needed for mild pain. These pain medications may be taken all at once or in different combinations as needed. Also, recommend Colace (docusate) as a stool softener as surgery and pain medicine cause constipation. Dressings: Remove shoulder bandage after 3 days. Leave the sticky Steri-Strips in place until they fall off or remove them after you shower. Cover the incisions with Band-Aids or leave them open to air. You may shower after 5 days. Follow-up: 10-[address] Cavazos You may take off the leg compression stockings this evening at home. You may also leave them on a few days longer if you have a history of leg swelling or edema. Let us know right away if you develop any redness, drainage, fevers, chest pain, or trouble breathing. Do not drink alcohol or drive for at least 24 hours after anesthesia. Please call the office during business hours with any questions or concerns. Referrals: Wesley Cavazos MD [ [facility] STAFF PHYSICIAN] - Discharge Orders Discharge Orders: Discharge Order (Routine); Ordered 07/27/21 Ordered By: Wesley Cavazos DS: Diagnosis Discharge Diagnosis (1) Left rotator cuff tear: Status: Acute (2) Tendinitis of long head of biceps brachii of left shoulder: Status: Acute (3) Osteoarthritis of left AC (acromioclavicular) joint: Status: Acute (4) Impingement syndrome of left shoulder: Status: Acute
--- NOTE | 2021-07-27 10:54 | ROE_ITS ---
Date of service: 07/27/21 Time of Service: 08:00 Operative Note Operative Note DATE OF PROCEDURE: 07/27/21 PRE-OP DIAGNOSIS: Left: 1. Rotator cuff tear 2. LHB tendinopathy 3. AC Joint arthritis 4. Impingement POST-OP DIAGNOSIS: same PROCEDURE: Left: 1. Rotator cuff repair, CPT# 52955. This involved repair of the subscapularis and supraspinatus using anchors and sutures to reattach the rotator cuff back to the footprint of the lesser and greater tuberosity. 2. Arthroscopic biceps tenodesis, CPT# 12708. This involved arthroscopically suturing and reattaching the long head of the biceps tendon to the proximal humerus at the superior margin of the bicipital groove with a screw at the correct tension. 3. Extensive debridement, CPT# 82953. This involved using arthroscopic hand i nstruments, power instruments, and radiofrequency instruments to release to release the long head of the biceps tendon and debride areas of labral tearing, synovitis, and chondromalacia about the biceps groove central posterior glenoid, and exposed greater and lesser tuberosities, [facility] L was released and subscapularis and biceps tendon were debrided to stable tissue, within the glenohumeral joint anteriorly, superiorly and posteriorly. 4. Arthroscopic distal clavicle excision, CPT# 36054. This involved arthroscopically exposing the underside of the acromioclavicular joint, smoothing out bone spurs, and removing approximately 5 mm of the distal clavicle so there was no bone left engaging the acromion. 5. Subacromial decompression with partial acromioplasty, CPT# 02792. This involved using arthroscopic power instruments and a radiofrequency wand to complete a bursectomy and remove bone spurs on the undersurface of the acromion. The delinquent tax collector assistant was medically required in order to help assist in techniques above, which require positioning the arm, holding the arthroscope, and manipulating multiple instruments and sutures at the same time. This cannot be done without the help of an experienced delinquent tax collector assistant. SURGEON: Wesley Cavazos FISHERIES SPECIALIST: Isabella Patrick ANESTHESIA TYPE: General LMA/ETT and Primary Nerve Block Refer to Anesthesia Record ESTIMATED BLOOD LOSS: 15 PATHOLOGY: none sent COMPLICATIONS: None Patient was transported to: PACU Patient's condition: stable Implants: Arthrex: 4.75mm SwiveLocks x 2 Indications: The patient was diagnosed with the above conditions and appropriately indicated for surgical intervention. Please see complete medical record for details. Findings: Exam under anesthesia: Full range of motion. No instability. Mild glenohumeral and superior crepitation. Likely supra?physiologic external rotation near 90 degrees. Glenohumeral joint: Profound synovitis anteriorly. Biceps tendon intra- articular significant partial tear. Upper margin partially retracted and torn subscapularis. Significant partial articular sided anterior cord central supraspinatus tear. Posterior and central glenoid chondromalacia grade 3?4. Degenerative labral fraying anteriorly superiorly and posteriorly. Humeral head chondromalacia grade 2?3 anteriorly superiorly. Intact infraspinatus. Subacromial space: Profound bursitis. Moderate subacromial bone spur. Moderate engaging synovitis and inferior osteophyte acromioclavicular joint. Intact although hemorrhagic superior rotator cuff. Thin with completion to full- thickness most anteriorly about the interval and into the anterior margin of the supraspinatus with firm strong tissue wrapping around to the greater tuberosity from central and posterior. Diminished acromiohumeral subacromial space. Procedure Description: In the operating room, general anesthesia was induced. Bilateral shoulders were examined. The patient was positioned in the beachchair position. All bony prominences were well-padded. Preoperative antibiotics were administered. The shoulder was prepped and draped in the usual sterile fashion. The correct patient, procedure, and side of the procedure were all verified prior to incision. Starting through the posterior portal a standard complete diagnostic arthroscopy was performed of the glenohumeral joint including inspection of the long head of the biceps, anterior and superior labrum, subscapularis tendon, supraspinatus and infraspinatus tendons, and axillary recess. The glenoid and humeral head cartilage as well as the posterior labrum were inspected from an anterior viewing portal. Significant findings and interventions noted above. The lesser tuberosity footprint was prepared using hand and power instruments for bone tendon healing. A rigid cannula was inserted anteriorly. An all- arthroscopic suprapectoral biceps tenodesis was performed through an anterior portal using a Loop N Tack method with a SutureTape FiberLink cinched around and through the tendon. The biceps was tenotomized from the labrum and retracted down to the superior aspect of bicipital groove with direct arm pressure and sutures brought out the anterior portal for later repair with the subscapularis. The arm was positioned in neutral. Using a 1 portal technique, a suture lasso was used to pass a fiber tape medially and centrally in the subscapularis tendon body. The punch was used to localize placement of the anchor between the upper margin of the subscapularis repair on the lesser tuberosity and the bicipital groove.. Both biceps and subscapularis repair sutures were passed through the anchor eyelet and the anchor was brought down to the bone with the sutures tensioned appropriately. The arm was brought through full external rotation demonstrating no restricted motion due to the repair and secure fixation of the tendon and anchor to bone. Starting through the posterior portal, the arthroscope was directed into the subacromial space. A lateral 50 yard line lateral portal was created. A combination of power instruments and a radiofrequency ablator were used to debride bursitis anteriorly, posteriorly, and laterally as well as expose and smooth bone spurring on the undersurface of the acromion. The coracoacromial ligament was partially preserved. The bursectomy was completed viewing laterally and working from posteriorly and the rotator cuff was thoroughly inspected with findings noted above. The anterior portal was redirected towards the undersurface of the AC joint. A shaver and electrocautery device were used to clear soft tissue from the undersurface of the AC joint. The distalmost aspect of the distal clavicle was then removed and smoothed. Care was taken to ensure that proper amount of bone was removed and there was no engaging bone left behind especially superiorly. Cannulas were inserted at the superior anterior lateral and superior posterior lateral margins of the acromion as well as at the lateral 50 yard line portal. The rotator cuff tear was inspected and debrided of frayed tissue at the anterolateral most margin exposing a full-thickness moderately sized supraspinatus tear. The greater was tuberosity cleared of fibrous tissue over the footprint working within the glenohumeral joint and subacromial, and the bursectomy was extended laterally. The greater tuberosity was lightly abraded and smooth to optimize tissue reduction, healing bone tendon, and repair. Arm position was optimized and rotator cuff grasper used to simulate appropriate reduction for repair. Although the tear had a moderate size medially, the lateral attachment remained firm even after debridement centrally to the greater tuberosity of the supraspinatus. Decision was made to proceed with single lateral row fixation repair draping the anterior supraspinatus over the prepared exposed footprint and securing the central tendon. Good tissue reduction and fixation was provisionally confirmed with tissue graspers. A self retrieving suture passer was used to pass a fiber tape inverted horizontal mattress suture medially and somewhat anteriorly and centrally in the supraspinatus. More anteriorly a fiber link in cinch mode was passed through the central aspect of the anterior supraspinatus tear and this was repeated most anteriorly in the tissue just posterior to the bicipital groove. Arm position was again optimized and reduction confirmed with the rigid clear [place] cannula to a lateral anchor positioned off the greater tuberosity. The punch was used to localize placement of this lateral anchor. All repair sutures were brought through the anchor eyelet, appropriately tensioned, and the suture anchor secured into bone. The repair was inspected through shoulder range of motion as well as a probe found to be stable with secure fixation. The shoulder was drained of arthroscopic fluid. All portal sites were copiously irrigated. These incisions were closed using 3-0 Monocryl in a buried fashion and then covered with Mastisol, Steri-Strips, Xeroform, dry gauze, and ABDs. The dressings were covered and secured with Medipore tape. The operative extremity was placed into a sling for immobilization. The patient awoke from anesthesia without complication and was transferred to the recovery room in a stable condition.
--- NOTE | 2021-07-27 12:31 | W.ANESPOSTOP ---
Postoperative Evaluation Date, Time and Location Date Performed: 07/27/21 Time Performed: 12:35 Patient Location: Day Surgery Unit Vital Signs Most Recent Imported Vital Signs: Most Recent Vital Signs Temp Pulse Resp BP Pulse Ox 36.4 C L 69 20 108/68 96 07/27/21 12:13 07/27/21 12:13 07/27/21 12:13 07/27/21 12:13 07/27/21 12:13 Pain Score Most Recent Pain Score: Most Recent Pain Score Pain Level 0 07/27/21 12:13 Assessment Mental Status: Awake (Alert & Oriented to Patient Baseline) Airway and Respiratory Function: Patent airway with normal (patient baseline) respiratory exam Cardiovascular Function: Hemodynamically Stable Hydration Status: Adequately Hydrated Nausea & Vomiting: No Nausea or Vomiting Pain: Pt. Denies Any Pain Peripheral Nerve Block: Regional nerve block not resolved at time of post operative discharge
== END 2021-07-27 12:40 | disposition home or self-care (01) ==
PROVIDERS: PCP Student in an Organized Health Care Education/Training Program; Visit Provider Student in an Organized Health Care Education/Training Program
PROC: (CPT 29827; principal; 2021-07-27 07:30)
DX: M19.012 Primary osteoarthritis, left shoulder (principal); M75.112 Incomplete rotator cuff tear or rupture of left shoulder, not specified as traumatic; M75.22 Bicipital tendinitis, left shoulder; M75.42 Impingement syndrome of left shoulder; K22.2 Esophageal obstruction; J45.909 Unspecified asthma, uncomplicated; I10 Essential (primary) hypertension
CPT/HCPCS: 29827; 29828; 29823; 29826; 29824; J0690; J1100; J1885; J2001; J2250; J2270; J2370; J2405

== ENCOUNTER → 2021-08-08 10:24 | Outpatient (BNVA) | payer MEDICARE, BC, SELFPAY | PROVIDERS: PCP Student in an Organized Health Care Education/Training Program; Referring Provider Student in an Organized Health Care Education/Training Program; Visit Provider Student in an Organized Health Care Education/Training Program | DX: Z47.89 Encounter for other orthopedic aftercare (principal); M75.42 Impingement syndrome of left shoulder; M19.012 Primary osteoarthritis, left shoulder; M75.22 Bicipital tendinitis, left shoulder ==

== ENCOUNTER → 2021-09-26 08:41 | Outpatient (BNVA) | payer MEDICARE, BC, SELFPAY | PROVIDERS: PCP Student in an Organized Health Care Education/Training Program; Referring Provider Student in an Organized Health Care Education/Training Program; Visit Provider Student in an Organized Health Care Education/Training Program | DX: Z47.89 Encounter for other orthopedic aftercare (principal); M75.22 Bicipital tendinitis, left shoulder; M25.511 Pain in right shoulder; M19.012 Primary osteoarthritis, left shoulder; M75.42 Impingement syndrome of left shoulder | CPT/HCPCS: 99213 ==

== ENCOUNTER 2021-10-10 01:48 | Outpatient (CLI) | payer MEDICARE, BC, SELFPAY ==
--- NOTE | 2021-10-10 09:10 | DI.MRI_ITS ---
Exam(s) MR UPPER JOINT RT WO CLINICAL HISTORY: Persistent pain, weakness,rt rotator cuff tear,m75.101. TECHNIQUE: Multiplanar multisequence MRI was performed. COMPARISON: None FINDINGS: MR examination of the shoulder was performed according to the usual protocol. There is a small effusion of the glenohumeral joint. There is moderate fluid in the subacromial subd eltoid bursa. . Bones and labrum: There are areas of abnormal bony signal in the acromion and clavicle, and mild subc hondral cystic changes and changes of marrow edema are noted in the greater tuberosity of the humerus There are marked hypertrophic degenerative changes at the acromioclavicular joint with fluid in the j oint space. Glenoid labrum is effaced superiorly and there is a probable SLAP tear. . Rotator cuff: Evaluation of the rotator cuff is somewhat limited due to motion artifact on multiple pulse sequences. There is abnormal signal in distal portions of subscapularis, supraspinatus, and inf raspinatus consistent with tendinosis. There is partial thickness undersurface tearing of the suprasp inatus at the level of the convexity of the humeral head measuring up to about 3 millimeters. There a lso appears to be superior surface tearing of the supraspinatus anteriorly measuring roughly 9 millim eters in width and 2-3 millimeters in depth. No full-thickness tear or retracted tear identified. No definite infraspinatus tear seen. No subscapularis tear seen.. Rotator interval structures are unremarkable with no evidence of a tear. Biceps tendon and anchor: Biceps tendon and anchor show normal signal and no evidence of a tear. Kaitlynn ps tendon is normally positioned in the bicipital groove. IMPRESSION: Limited study due to motion and patient size. Severe degenerative changes of AC joint as described above. Rotator cuff tendinosis with small superior surface and inferior surface partial-thickness tears of s upraspinatus. No full thickness tear seen. DATA REPOSITORY: Neck see what did did confirm the
== END 2021-10-10 02:08 ==
PROVIDERS: PCP Student in an Organized Health Care Education/Training Program; Visit Provider Student in an Organized Health Care Education/Training Program
DX: M75.101 Unspecified rotator cuff tear or rupture of right shoulder, not specified as traumatic (principal); M19.011 Primary osteoarthritis, right shoulder
CPT/HCPCS: 73221

== ENCOUNTER → 2021-10-17 10:43 | Outpatient (BNVA) | payer MEDICARE, BC, SELFPAY | PROVIDERS: PCP Student in an Organized Health Care Education/Training Program; Referring Provider Student in an Organized Health Care Education/Training Program; Visit Provider Student in an Organized Health Care Education/Training Program | DX: Z47.89 Encounter for other orthopedic aftercare (principal); M19.012 Primary osteoarthritis, left shoulder; M75.42 Impingement syndrome of left shoulder; M75.101 Unspecified rotator cuff tear or rupture of right shoulder, not specified as traumatic | CPT/HCPCS: 99213; 99214 ==

== ENCOUNTER 2021-11-01 01:33 | Outpatient (CLI) | payer MEDICARE, BC, SELFPAY ==
--- NOTE | 2021-11-01 | DI.US_ITS ---
Exam(s) US THYROID EXAM: US THYROID CLINICAL HISTORY: RT THYROID NODULE, E04.1. TECHNIQUE: Ultrasound thyroid performed using standard protocol. COMPARISON: US US OR ANESTHESIA from 07/27/2021 FINDINGS: Both thyroid lobes as well as the isthmus exhibit normal size and do not contain nodules. RIGHT THYROID LOBE: Measures 1.0 cm AP x 1.7 cm wide x 4.2 cm craniocaudal There are no nodules in the right lobe. ISTHMUS: Normal thickness. There are no nodules in the isthmus. LEFT THYROID LOBE: Measures 1.5 cm AP x 1.0 wide x 4.3 cm craniocaudal There are no nodules in the left lobe. LYMPH NODES: There is no significant adenopathy. Few small benign-appearing lymph nodes are noted in the jugular chains but no pathologic adenopathy IMPRESSION: 1. Normal appearing thyroid gland. Thyroid gland size is normal and there are no thyroid nodules nikita dent. 2. No significant lymphadenopathy. DATA REPOSITORY:
== END 2021-11-01 01:53 ==
PROVIDERS: PCP Student in an Organized Health Care Education/Training Program; Visit Provider Otolaryngology
DX: E04.1 Nontoxic single thyroid nodule (principal)
CPT/HCPCS: 76536

== ENCOUNTER → 2021-12-05 09:32 | Outpatient (BNVA) | payer MEDICARE, BC, SELFPAY | PROVIDERS: PCP Student in an Organized Health Care Education/Training Program; Visit Provider Student in an Organized Health Care Education/Training Program | DX: M75.111 Incomplete rotator cuff tear or rupture of right shoulder, not specified as traumatic (principal); M75.22 Bicipital tendinitis, left shoulder; M19.012 Primary osteoarthritis, left shoulder; M75.42 Impingement syndrome of left shoulder | CPT/HCPCS: 99213; 99214 ==

== ENCOUNTER → 2022-01-30 08:14 | Outpatient (BNVA) | payer MEDICARE, BC, SELFPAY | PROVIDERS: PCP Student in an Organized Health Care Education/Training Program; Referring Provider Student in an Organized Health Care Education/Training Program; Visit Provider Student in an Organized Health Care Education/Training Program | DX: M75.111 Incomplete rotator cuff tear or rupture of right shoulder, not specified as traumatic (principal); M75.42 Impingement syndrome of left shoulder; M75.122 Complete rotator cuff tear or rupture of left shoulder, not specified as traumatic; M75.22 Bicipital tendinitis, left shoulder; M19.012 Primary osteoarthritis, left shoulder | CPT/HCPCS: 99214 ==

== ENCOUNTER 2022-04-09 03:10 | Outpatient (CLI) | payer MEDICARE, BC, SELFPAY ==
[2022-04-09 08:38] LABS: MCH 30.9 pg (27.0-33.0); MCHC 34.1 % (32.0-36.0); MCV 91 fL (80-95); MPV 8.7 fL (8.0-11.0); Platelet Count 396 10^3/uL (130-400); RBC 4.86 10^6/uL (4.36-5.78); RDW 12.6 % (11.8-14.1); RDW-SD 42.2 fL
[2022-04-09 09:49] LABS: ALT 32 U/L (16-63); AST 25 U/L (15-37); Albumin 4.1 g/dL (3.4-5.0); Alkaline Phosphatase 82 U/L (46-116); Anion Gap 8.3 mmol/L (3-11); BUN 10 mg/dL (7-18); Bilirubin, Total 0.4 mg/dL (0.2-1.0); CO2 27.7 mmol/L (21.0-32.0); CREATININE 0.8 mg/dL (0.70-1.30); Calcium 8.9 mg/dL (8.5-10.1); Chloride 102 mmol/L (98-107); Glucose 114 mg/dL (74-106); Potassium 4.6 mmol/L (3.5-5.1); Sodium 138 mmol/L (136-145); Total Protein 7.4 g/dL (6.4-8.2)
[2022-04-11 23:59] LABS: Lab Add On Test DONE
[2022-04-12 00:24] LABS: Hemoglobin A1C 5.8 % (<5.7)
== END 2022-04-09 03:11 | disposition home or self-care (01) ==
LOC: LBO 03:10
PROVIDERS: PCP Student in an Organized Health Care Education/Training Program; Visit Provider Student in an Organized Health Care Education/Training Program
DX: I10 Essential (primary) hypertension (principal); R73.09 Other abnormal glucose
CPT/HCPCS: 36415; 80053; 85027; 83036

== ENCOUNTER 2022-04-15 11:39 | Emergency (ER) | payer MEDICARE, BC, SELFPAY ==
[2022-04-15] VITALS (108 sets, daily range): BP systolic 122–187; BP diastolic 57–158; PULSE 46–73; RESP 7–28; TEMP 36.7–37; O2SAT 80–100
--- NOTE | 2022-04-15 11:30 | RT.EKG_ITS ---
APPROVED REPORT Exam: Resting ECG Reason for Exam: vomiting Patient Location: E HR:52 bpm ECG Measurements Heart Rate 52 AXIS NH 193 P 52 QRSd 120 QRS -44 QT 441 T 22 QTc 409 Conclusion Sinus bradycardia...rate< 60 IVCD, consider RBBB...QRSd>120mS, terminal axis(90,270) sinus bradycardia at 52, borderline left axis, no STEMI, nondiagnostic EKG
[2022-04-15] MEDS: Metoclopramide 10 MG/2 ML VIAL IVP (12:05)
[2022-04-15] MEDS: Normal Saline 1,000 ML 1000 ML IV (12:06)
[2022-04-15] MEDS: Normal Saline 50 ML (12:06)
[2022-04-15 12:17] LABS: Abs Immature Grans 0.03 10^3/uL (0.0-0.06); Absolute Basophil Count 0.05 10^3/uL (0.0-0.2); Absolute Eosinophil Count 0.01 10^3/uL (0.0-0.7); Absolute Lymphocyte Count 1.18 10^3/uL (1.2-3.4); Absolute Monocyte Count 0.52 10^3/uL (0.1-0.8); Absolute Neutrophil Count 9.53 10^3/uL (1.2-6.7); Basophils % 0.4; Eosinophils % 0.1; HCT 39.8 % (40.0-50.0); HGB 14.2 g/dL (13.5-17.5); Immature Grans % 0.3; Lymphocytes % 10.4; MCH 31.6 pg (27.0-33.0); MCHC 35.7 % (32.0-36.0); MCV 89 fL (80-95); MPV 9.2 fL (8.0-11.0); Monocytes % 4.6; Neutrophils % 84.2; Platelet Count 354 10^3/uL (130-400); RBC 4.49 10^6/uL (4.36-5.78); RDW 12.4 % (11.8-14.1); RDW-SD 40.7 fL; WBC 11.32 10^3/uL (4.4-10.8)
--- NOTE | 2022-04-15 12:32 | W.ED.GENAD ---
Discharge Plan Disposition Patient Disposition: HOME Condition: Improving Discharge Details Clinical Impression: Gastritis Primary Care Provider: Jaymie Ramirez ED Provider: Esa Mason Home Meds and New Rx's Prescriptions: New Mylanta Coat-Cool 1,200 mg-270 mg -80 mg/10 mL suspension 5 ml PO DAILY PRNQty: 50 0RF Rx Instructions: prn gastritis No Action hydrochlorothiazide 12.5 mg tablet 12.5 mg PO DAILY Qty: 90 6RF Hold Instructions: Home Medication placed on hold at Doctor's office turmeric 400 mg capsule See Rx Instructions PO DAILY Rx Instructions: 2000 PO daily; 2000 mg for inflammation EO 09/07/20 (DME) Flexichamber Spacer See Rx Instructions .ROUTE .MEDSUPPLY Qty: 1 0RF Rx Instructions: As directed amlodipine 10 mg tablet 10 mg PO DAILY albuterol sulfate 90 mcg/actuation HFA aerosol inhaler 2 puff IH QID PRN (Reason: shortness of breath) Qty: 18 1RF Rx Instructions: As best covered by insurance esomeprazole magnesium [Nexium 24HR] 20 mg tablet,delayed release (DR/EC) 40 mg PO DAILY loratadine 10 mg tablet See Rx Instructions .ROUTE .COMPLEX Qty: 90 3RF Dose Instruction: TAKE ONE TABLET BY MOUTH EVERY DAY Rx Instructions: TAKE ONE TABLET BY MOUTH EVERY DAY atorvastatin 20 mg tablet See Rx Instructions .ROUTE .COMPLEX Qty: 90 3RF Dose Instruction: TAKE ONE TABLET BY MOUTH EVERY DAY Rx Instructions: TAKE ONE TABLET BY MOUTH EVERY DAY losartan 25 mg tablet 50 mg PO BID Qty: 180 6RF Rx Instructions: Increased to 50mg BID, 01/19/21 (25 BID 01/12/21) fluticasone propionate 50 mcg/actuation spray,suspension 1 spray .ROUTE .COMPLEX Qty: 16 1RF Rx Instructions: 1 spray in each nostril acetaminophen 325 mg capsule 650 mg PO ONCE PRN gabapentin 100 mg capsule 300 mg PO QHS Qty: 90 1RF Rx Instructions: Trial (1) qHS x 2 nights, then (2) x2 , then (3)... sildenafil 100 mg tablet See Rx Instructions .ROUTE .COMPLEX Qty: 12 0RF Dose Instruction: TAKE ONE TABLET BY MOUTH DIRECTED WITHOUT FOOD 1 HOUR PRIOR TO SEX NEEDED FOR ED Rx Instructions: TAKE ONE TABLET BY MOUTH DIRECTED WITHOUT FOOD 1 HOUR PRIOR TO SEX NEEDED FOR ED venlafaxine 75 mg tablet extended release 24hr 150 mg PO DAILY Rx Instructions: 2 tablets daily for depression Discharge Instructions Instructions: Gastritis (ED) Additional Instructions: Please follow-up with GI specialist as scheduled. Please return to the emergency part he develop worsening pain nausea vomiting dehydration or other abnormal symptoms. Discharge Data Discharge Date/Time-TO BE ENTERED AT DEPARTURE: 04/15/22 20:34 Medical Decision Making <Amy Barrett MD - Last Filed: 04/24/22 09:35> Sylvain Long is a 62-year-old man with a history of hypertension, Schatzki's ring, GERD, gastroparesis, hyperlipidemia presenting to emergency department with vomiting and abdominal pain. Patient reports that for the past 10 years he has had intermittent episodes of vomiting, diarrhea, abdominal pain. He reports that these have no known triggers. Patient reports that they tend to occur once a month to once every few months. Patient reports that he has been seen by GI by this, most recently 1 year ago. He states that he thinks he had a CT scan of his abdomen at that time, and that he had an EGD and colonoscopy. Patient states that no known cause was found. Patient reports that he had one of his typical episodes 2 days ago, and then again today. Patient states that he typically does not have episodes so close together. He states that otherwise this episode is completely typical of episodes that have been occurring over the past 10 years. He reports generalized abdominal pain, nonbilious/nonbloody emesis, diarrhea that is not dark or bloody. Patient states that he has had chills and sweating during episode 2 days ago and again today, which is also typical of his past episodes. He reports that he does not think he has had fevers. He denies any other pain, cough, shortness of breath, numbness, weakness weakness, rash, constipation, dysuria. Patient reports that he had minimal p.o. intake yesterday as his stomach felt raw after the episode 2 days ago, but otherwise has been eating and drinking as usual. Patient received Zofran en route from EMS, patient states that he has not noticed any improvement in his nausea since receiving medication. On exam patient is well and nontoxic-appearing. There is diffuse abdominal tenderness to palpation without peritoneal signs or focality. Concern for cyclic vomiting, gastritis, gastroparesis, dehydration, electrolyte derangement, other. Exam/history at this time is not consistent with appendicitis, acute cholecystitis/cholangitis, acute aortic pathology, other acute emergent surgical intra-abdominal process, sepsis, acute emergent intra-abdominal cranial process. Plan for IV placement, EKG, screening labs, IV Reglan, IV fluid hydration. Will monitor and reassess. Records unable to be obtained from gastroenterology given holiday. On reassessment patient reports feeling significantly improved after medications. Patient reporting some return of nausea plan for IV Zofran. Patient signed out to Dr. Mason at time of shift change with reassessment, p.o. challenge pending. Medical Records Medical records reviewed: Yes I reviewed the patient's medical records. Lab Data Lab results reviewed: Yes I reviewed the patient's lab results. Labs: Laboratory Tests Range/Units 04/15/22 04/15/22 04/15/22 12:05 12:05 12:27 WBC (4.4-10.8) 10^3/uL 11.32 H RBC (4.36-5.78) 10^6/uL 4.49 Hgb (13.5-17.5) g/dL 14.2 Hct (40.0-50.0) % 39.8 L MCV (80-95) fL 89 MCH (27.0-33.0) pg 31.6 MCHC (32.0-36.0) % 35.7 RDW (11.8-14.1) % 12.4 Plt Count (130-400) 10^3/uL 354 MPV (8.0-11.0) fL 9.2 Immature Gran % 0.3 Neutrophils % 84.2 Lymphocytes % 10.4 Monocytes % 4.6 Eosinophils % 0.1 Basophils % 0.4 Nucleated RBC % (0.0-0.3) % 0.0 Absolute Neutrophils (1.2-6.7) 10^3/uL 9.53 H Absolute Lymphocytes (1.2-3.4) 10^3/uL 1.18 L Absolute Monocytes (0.1-0.8) 10^3/uL 0.52 Absolute Eosinophils (0.0-0.7) 10^3/uL 0.01 Absolute Basophils (0.0-0.2) 10^3/uL 0.05 Sodium (136-145) mmol/L 137 Potassium (3.5-5.1) mmol/L 3.9 Chloride (98-107) mmol/L 102 Carbon Dioxide (21.0-32.0) mmol/L 26.3 Anion Gap (3-11) mmol/L 8.7 BUN (7-18) mg/dL 21 H Creatinine (0.70-1.30) mg/dL 0.8 Estimated GFR/1.73 m2 (mL/min/1.73m2) >= 60.00 Glucose (74-106) mg/dL 141 H Calcium (8.5-10.1) mg/dL 8.8 Magnesium (1.8-2.4) mg/dL 1.8 Total Bilirubin (0.2-1.0) mg/dL 0.5 AST (15-37) U/L 20 ALT (16-63) U/L 23 Alkaline Phosphatase (46-116) U/L 76 Troponin I (<or=60) ng/L < 50 Total Protein (6.4-8.2) g/dL 7.2 Albumin (3.4-5.0) g/dL 3.9 Lipase (73-393) U/L 110 TSH (0.36-3.74) uIU/mL 1.39 Urine Color (Yellow) Yellow Urine Clarity (Clear) Clear Urine pH (5-8) 6.0 Ur Specific [place] (1.005-1.025) >= 1.030 H Urine Protein (Negative) mg/dL Negative Urine Ketones (Negative) mg/dL 15 H Urine Blood (Negative) Negative Urine Nitrite (Negative) Negative Urine Bilirubin (Negative) Negative Urine Urobilinogen (Up TO 0.2) EU/dL 0.2 Ur Leukocyte Esterase (Negative) Negative Urine Glucose (Negative) mg/dL Negative ECG Data Attestation: I personally reviewed and interpreted this ECG (s) as follows: Interpretation: EKG shows sinus bradycardia at 52, borderline left axis, no STEMI, nondiagnostic EKG <Esa Mason MD - Last Filed: 04/15/22 19:55> Sylvain Long is a 62-year-old man with a history of hypertension, Schatzki's ring, GERD, gastroparesis, hyperlipidemia presenting to emergency department with vomiting and abdominal pain. Patient reports that for the past 10 years he has had intermittent episodes of vomiting, diarrhea, abdominal pain. He reports that these have no known triggers. Patient reports that they tend to occur once a month to once every few months. Patient reports that he has been seen by GI by this, most recently 1 year ago. He states that he thinks he had a CT scan of his abdomen at that time, and that he had an EGD and colonoscopy. Patient states that no known cause was found. Patient reports that he had one of his typical episodes 2 days ago, and then again today. Patient states that he typically does not have episodes so close together. He states that otherwise this episode is completely typical of episodes that have been occurring over the past 10 years. He reports generalized abdominal pain, nonbilious/nonbloody emesis, diarrhea that is not dark or bloody. Patient states that he has had chills and sweating during episode 2 days ago and again today, which is also typical of his past episodes. He reports that he does not think he has had fevers. He denies any other pain, cough, shortness of breath, numbness, weakness weakness, rash, constipation, dysuria. Patient reports that he had minimal p.o. intake yesterday as his stomach felt raw after the episode 2 days ago, but otherwise has been eating and drinking as usual. Patient received Zofran en route from EMS, patient states that he has not noticed any improvement in his nausea since receiving medication. On exam patient is well and nontoxic-appearing. There is diffuse abdominal tenderness to palpation without peritoneal signs or focality. Concern for cyclic vomiting, gastritis, gastroparesis, dehydration, electrolyte derangement, other. Exam/history at this time is not consistent with appendicitis, acute cholecystitis/cholangitis, acute aortic pathology, other acute emergent surgical intra-abdominal process, sepsis, acute emergent intra-abdominal cranial process. Plan for IV placement, EKG, screening labs, IV Reglan, IV fluid hydration. Will monitor and reassess. Records unable to be obtained from gastroenterology given holiday. On reassessment patient reports feeling significantly improved after medications. Patient reporting some return of nausea plan for IV Zofran. Patient signed out to Dr. Mason at time of shift change with reassessment, p.o. challenge pending. 19: 49 patient feeling much better after GI cocktail including viscous lidocaine, Mylanta, pantoprazole. Patient is on Nexium continue to take Nexium at home. Will provide GI referral. HPI <Amy Barrett MD - Last Filed: 04/24/22 09:35> General Mode of arrival: EMS. Date/Time Provider Initiated Documentation: 04/15/22 11:54. Limitations to Documentation: no limitations. Information obtained by: patient, EMS, RN notes reviewed and old records reviewed. HPI Narrative: Sylvain Long is a 62-year-old man with a history of hypertension, Schatzki's ring, GERD, gastroparesis, hyperlipidemia presenting to emergency department with vomiting and abdominal pain. Patient reports that for the past 10 years he has had intermittent episodes of vomiting, diarrhea, abdominal pain. He reports that these have no known triggers. Patient reports that they tend to occur once a month to once every few months. Patient reports that he has been seen by GI by this, most recently 1 year ago. He states that he thinks he had a CT scan of his abdomen at that time, and that he had an EGD and colonoscopy. Patient states that no known cause was found. Patient reports that he had one of his typical episodes 2 days ago, and then again today. Patient states that he typically does not have episodes so close together. He states that otherwise this episode is completely typical of episodes that have been occurring over the past 10 years. He reports generalized abdominal pain, nonbilious/nonbloody emesis, diarrhea that is not dark or bloody. Patient states that he has had chills and sweating during episode 2 days ago and again today, which is also typical of his past episodes. He reports that he does not think he has had fevers. He denies any other pain, cough, shortness of breath, numbness, weakness weakness, rash, constipation, dysuria. Patient reports that he had minimal p.o. intake yesterday as his stomach felt raw after the episode 2 days ago, but otherwise has been eating and drinking as usual. Patient received Zofran en route from EMS, patient states that he has not noticed any improvement in his nausea since receiving medication. Related Data Home Medications Medication Instructions Recorded Confirmed inhalational spacing device #1 ea 09/16/20 04/15/22 (Flexichamber spacer) hydrochlorothiazide 12.5 mg tablet 12.5 mg PO DAILY #90 tabs 04/02/21 04/15/22 albuterol sulfate 90 mcg/actuation 2 puff inhalation QID PRN 04/12/21 04/15/22 aerosol inhaler shortness of breath #18 grams turmeric 400 mg capsule See Rx Instructions PO DAILY 04/17/21 04/15/22 amlodipine 10 mg tablet 10 mg PO DAILY 07/03/21 04/15/22 esomeprazole magnesium 20 mg 40 mg PO DAILY 08/08/21 04/15/22 tablet,delayed release (Nexium 24HR) atorvastatin 20 mg tablet See Rx Instructions .Route 01/03/22 04/15/22 .COMPLEX #90 tabs loratadine 10 mg tablet See Rx Instructions .Route 01/03/22 04/15/22 .COMPLEX #90 tabs losartan 25 mg tablet 50 mg PO BID #180 tabs 02/08/22 04/15/22 fluticasone propionate 50 1 spray .Route .COMPLEX #16 grams 03/08/22 04/15/22 mcg/actuation nasal spray,suspension acetaminophen 325 mg capsule 650 mg PO ONCE PRN 03/26/22 04/15/22 calcium carb 1,200 mg-mag hydrox 5 ml PO DAILY PRN #50 mL 04/15/22 270 mg-simeth 80 mg/10 mL oral susp (Mylanta Coat-Cool) gabapentin 100 mg capsule 300 mg PO QHS #90 caps 04/15/22 venlafaxine 75 mg tablet,extended 150 mg PO DAILY 04/15/22 04/15/22 release 24 hr sildenafil 100 mg tablet See Rx Instructions .Route 04/22/22 .COMPLEX #12 tabs Previous Rx's Medication Instructions Recorded inhalational spacing device #1 ea 09/16/20 (Flexichamber spacer) hydrochlorothiazide 12.5 mg tablet 12.5 mg PO DAILY #90 tabs 04/02/21 albuterol sulfate 90 mcg/actuation 2 puff inhalation QID PRN 04/12/21 aerosol inhaler shortness of breath #18 grams atorvastatin 20 mg tablet See Rx Instructions .Route 01/03/22 .COMPLEX #90 tabs loratadine 10 mg tablet See Rx Instructions .Route 01/03/22 .COMPLEX #90 tabs losartan 25 mg tablet 50 mg PO BID #180 tabs 02/08/22 fluticasone propionate 50 1 spray .Route .COMPLEX #16 grams 04/22/22 mcg/actuation nasal spray,suspension calcium carb 1,200 mg-mag hydrox 5 ml PO DAILY PRN #50 mL 04/15/22 270 mg-simeth 80 mg/10 mL oral susp (Mylanta Coat-Cool) gabapentin 100 mg capsule 300 mg PO QHS #90 caps 04/15/22 sildenafil 100 mg tablet See Rx Instructions .Route 04/22/22 .COMPLEX #12 tabs Allergies Allergy/AdvReac Type Severity Reaction Status Date / Time Penicillins Allergy Intermediate rash Verified 03/12/22 10:01 General Stated Complaint: GenMedical MANINDER: 2 Review of Systems <Amy Barrett MD - Last Filed: 04/24/22 09:35> Narrative: Constitutional: denies fevers Eyes: denies eye pain ENT: denies ear pain, dental pain, sore throat Cardiovascular: denies chest pain Respiratory: denies SOB, cough GI: Reports abdominal pain, vomiting, diarrhea : denies flank pain MSK: denies back pain, neck pain, arthralgias, myalgias Skin: denies rash Neuro: denies headaches, numbness, weakness PFSH <Amy Barrett MD - Last Filed: 04/24/22 09:35> All Active Problems (Updated 04/15/22 @ 19:50 by Esa Mason MD) Gastritis (Acute) Hypertension (Chronic) Rotator cuff tear, right (Acute) Pharyngeal dysphagia (Acute) Impingement syndrome of left shoulder (Acute) Gastroesophageal reflux disease without esophagitis (Acute) Per [facility] note from 07/17/21 Schatzki's ring (Chronic) per EGD, 06/2021 (dilated to 20mm w/ heme), [facility]. Right thyroid nodule (Acute) Pharyngoesophageal dysphagia (Acute) Cervicalgia (Acute) Throat discomfort (Acute) Nausea (Chronic) Long Hx of waves of nausea .. Osteoarthritis of left AC (acromioclavicular) joint (Acute) Tendinitis of long head of biceps brachii of left shoulder (Acute) Left rotator cuff tear (Acute) Dysphagia (Acute) Solid food dysphagia per GI, 06/2021 (EGD/quest dysmotility 2' ortho surg).. Recent Hx swallowing difficulties ... does NOT seem related to thyroid nodule which will be monitored via US by ENT, PCP. Thyroid nodule greater than or equal to 1 cm in diameter incidentally noted on imaging study (Acute) Rt Lobe 1.3x1cm solid nodule. [ ] ENT, Dr. Bowser requested by pt's . Cubital tunnel syndrome on left (Acute) s/p cubital tunnel decompression DOS: 11/15/2020 Gastroparesis (Chronic 09/29/13) Gastric outlet obstruction (Chronic 09/29/13) Hiatal hernia (Chronic) confirmed on EGD, 06/2021 (4cm).. Degenerative joint disease of spine (Chronic) 07/21/19 [facility] -[facility] Marrero Day Seasonal allergies (Chronic) Reactive airway disease (Chronic) Yearly bouts of bronchitis and/or pneumnia. Hypertension (Chronic) ARB 2' dry cough, 2019. Good control, 128/85 today, 03/31/19, cont ACEi. History of peptic ulcer disease (Chronic) Gastric Erythema per EGD, 06/2021. H.pyl, NEG. With gastric ulcer identified in 2001. He has been on b.,i.d. proton pump inhibitor since then. He is followed by [facility] gastroenterology. Muscle spasms of neck (Chronic) Thought to be due to cervical syndrome. Hypogonadism (Chronic) On testosterone replacement. Abdominal pain (Acute 09/03/13) gastroparesis 09/2013; pancreatitis 11/2013 abnl lipase; MRCP neg 04/2014 [facility] Acne (Acute 12/13/11) Ankle edema (Acute 12/13/11) Disorder of function of stomach (Acute 05/01/12) 03/30 nausea since 11/28; wt loss Diverticulitis of colon (Acute 12/13/11) Headache (Acute 12/13/11) Hyperlipidemia (Acute 03/17/01) goal LDL<130; risk 10-12% calculated 2003 Lumbago (Acute 12/13/11) Midline low back pain without sciatica (Acute 12/13/11) Mucous cyst of finger (Acute 12/11/15) Obesity, unspecified (Acute 12/13/11) Osteoarthrosis-multiple sites (Acute 12/13/11) Neck surgery went well. COnsidering LB evaluation as it is getting considerably worse with stiffness, pain - chauncey am. Pain in upper limb (Acute 11/08/13) L arm for past year Spondylosis of cervical region without myelopathy or radiculopathy (Acute 06/17/16) 06/2018 Neurosurgery . Successful C4-5 anterior disectomy, allograft fusion and plating. Testicular hypofunction (Acute 01/11/09) low testostorone levels ([place]) [facility] note; prior ED at least 2006 Urinary frequency (Acute 04/16/16) AUA score 22 (03/2016); 16 (08/2016); improved 8 (10/2016 on terazosin) Precancerous lesion (Acute 12/13/11) Lower lip, Hx LASER removal .. Dr. Dillan Schuster ([place], [place]) Skin lesion (Acute) 04/20/19 [facility] [place]: Shave biopsy right tenriism Duodenal ulcer disease (Acute 12/13/11) Cubital tunnel syndrome on right (Acute) Carpal tunnel syndrome of right wrist (Acute) Chronic cough (Acute) Chronic rhinitis (Acute) Post-nasal drip (Acute) Stopped smoking with greater than 30 pack year history (Acute) CT Screen NEG (Cat 1, Annual Screening), 01/25/20. Hyperplastic colon polyp (Acute) Sessile colonic polyp (Acute) Carpal tunnel syndrome, left (Acute) s/p ECTR DOS: 11/22/20 Bursitis of left shoulder (Acute) Wrist pain, left (Acute) Probable CT, [ ] Ortho (Hx nerve testing, painful!) Depression (Chronic) oN [email or web address] Medical History (Updated 04/15/22 @ 19:50 by Esa Mason MD) ACL tear (03/30/14) Acne (04/12/09) Degenerative joint disease (04/12/09) 04/11/17 Sacroiliac joint injection[facility] Diverticula of colon (12/28/09) Erectile dysfunction (11/20/05) Head ache (03/17/01) History of esophageal dilatation (06/28/21) KRISTINE Treadwell Hyperlipidemia (03/17/01) Hyperplastic polyp of large intestine (09/17/06) Hypertension (05/26/09) Hypogonadism, male (11/20/05) Low back pain (04/24/09) 02/07/17 [facility] lumbar spondylosis Obesity (03/17/01) Peptic ulcer disease (08/17/02) Precancerous skin lesion (11/14/10) lower lip Tear of PCL (posterior cruciate ligament) of knee (03/30/14) Surgical History (Updated 03/11/22 @ 13:00 by Yary Oshea RN) Arthroplasty of knee (~2013) partial lateral meniscectomy Cholecystectomy (11/12/06) Lap [facility] cubital/carpal tunnel release (11/03/14) R side Dr Walker disc repair L4-5 (04/18/00) Dr Olson elbow repair right (09/17/07) H/O arthroscopy of right knee partial lateral meniscectomy History of esophagogastroduodenoscopy (EGD) (06/28/21) [facility]) perianal fistula repair (09/25/10) Postoperative CSF leak repair 07/30/19 Amy Marrero Day following lumbar surgery on 07/26/19 Repair of umbilical hernia (08/31/10) Right small ginfer cyst (05/01/16) [place] tooth extraction (10/01/09) upper teeth Vasectomy (04/28/07) Family History Mother Arthritis Dementia Father , age 79 Heart disease Dementia Stroke Macular degeneration Heart valve replaced Sister Arthritis Sister Arthritis Social History Smoking/Tobacco Use Status: Former Tobacco Use Quit Date: 11/17/07 Pack-years: 45 Tobacco: How many years used: 30 Smoking risk assessment performed?: Yes Alcohol Intake: former Drug use: Never Substance use type: does not use Household members: significant other Housing: house Number of Children: 2 number of grandchildren: 4 Communication Needs: Corrective Lenses Do you need help understanding health information?: Never current occupation: retired, former [employer] Sexually active: Yes Do you think of yourself as: straight/heterosexual Current gender identity: male Frequency: 1-2 times per week Special emilia needs: No Seatbelt use: always Drive intox or ride w/intox lease purchase driver: No Fire extinguisher in home: Yes Carbon monox detector in home: Yes Firearms in home: Yes Firearms unloaded and locked: Yes Do you feel safe at home: Yes Additional Social history: quit smoking 11 years ago quit drinking 25 yrs ago Exam <Amy Barrett MD - Last Filed: 04/24/22 09:35> Narrative Exam Narrative: Constitutional: well and [id number], pleasant, conversing normally HENT: head atraumatic/normocephalic/normal inspection, mucous membranes moist Eyes: conjunctiva normal, sclera normal, pupils 3mm b/l Neck: no stridor, normal ROM, trachea midline Chest: normal inspection Resp: normal work of breathing, LCTAB Cardio: Bradycardic rate at 50, normal rhythm, no murmur appreciated GI: abdomen soft, diffuse tenderness to palpation without rebound or guarding, no focal McBurney's point tenderness to palpation, negative Pierce sign, non-distended Back: normal inspection, no rash Skin: warm, dry, normal color, no rash Neuro: alert, not altered, grossly non-focal, normal tone Ext: no edema Psych: normal mood, normal affect, normal behavior Course <Amy Barrett MD - Last Filed: 04/24/22 09:35> Vital Signs Vital signs: Vital Signs Temperature 36.7 C 04/15/22 11:39 Pulse 51 L 04/15/22 11:39 Respiratory Rate 19 04/15/22 11:39 Blood Pressure 167/82 H 04/15/22 11:39 Pulse Oximetry 99 04/15/22 11:39 Temperature 36.7 C 04/15/22 11:39 Temperature Source Tympanic 04/15/22 11:39 Pulse 50 L 04/15/22 12:16 Respiratory Rate 28 H 04/15/22 12:25 Respiratory Effort Non-Labored 04/15/22 12:14 Respiratory Depth Normal 04/15/22 12:14 Respiratory Pattern Normal 04/15/22 12:14 Blood Pressure 143/76 H 04/15/22 12:16 Blood Pressure Position Supine 04/15/22 11:39 Pulse Oximetry 98 04/15/22 12:24 Oxygen Delivery Method Room Air 04/15/22 11:39 Oxygen Flow Rate 0 04/15/22 11:39 Lab/Test Results Lab/Test Results: Laboratory Tests Range/Units 04/15/22 12:05 WBC (4.4-10.8) 10^3/uL 11.32 H RBC (4.36-5.78) 10^6/uL 4.49 Hgb (13.5-17.5) g/dL 14.2 Hct (40.0-50.0) % 39.8 L MCV (80-95) fL 89 MCH (27.0-33.0) pg 31.6 MCHC (32.0-36.0) % 35.7 RDW (11.8-14.1) % 12.4 Plt Count (130-400) 10^3/uL 354 MPV (8.0-11.0) fL 9.2 Immature Gran % 0.3 Neutrophils % 84.2 Lymphocytes % 10.4 Monocytes % 4.6 Eosinophils % 0.1 Basophils % 0.4 Nucleated RBC % (0.0-0.3) % 0.0 Absolute Neutrophils (1.2-6.7) 10^3/uL 9.53 H Absolute Lymphocytes (1.2-3.4) 10^3/uL 1.18 L Absolute Monocytes (0.1-0.8) 10^3/uL 0.52 Absolute Eosinophils (0.0-0.7) 10^3/uL 0.01 Absolute Basophils (0.0-0.2) 10^3/uL 0.05 Sign Out <Amy Barrett MD - Last Filed: 04/24/22 09:35> Sign Out Data: Sign Out Comment: Patient signed out with reassessment, p.o. challenge pending Last updated by Amy Barrett MD at 04/15/22 16:23
[2022-04-15 12:34] LABS: Bilirubin Negative (Negative); Blood Negative (Negative); Clarity Clear (Clear); Glucose Negative (Negative); Ketones 15 mg/dL (Negative); Leukocyte Esterase Negative (Negative); Nitrite Negative (Negative); Specific Gravity >= 1.030 (1.005-1.025); Urobilinogen 0.2 EU/dL (Up TO 0.2)
[2022-04-15 12:48] LABS: ALT 23 U/L (16-63); AST 20 U/L (15-37); Albumin 3.9 g/dL (3.4-5.0); Alkaline Phosphatase 76 U/L (46-116); Anion Gap 8.7 mmol/L (3-11); BUN 21 mg/dL (7-18); Bilirubin, Total 0.5 mg/dL (0.2-1.0); CO2 26.3 mmol/L (21.0-32.0); CREATININE 0.8 mg/dL (0.70-1.30); Calcium 8.8 mg/dL (8.5-10.1); Chloride 102 mmol/L (98-107); Glucose 141 mg/dL (74-106); Lipase 110 U/L (73-393); Magnesium 1.8 mg/dL (1.8-2.4); Potassium 3.9 mmol/L (3.5-5.1); Sodium 137 mmol/L (136-145); TSH (W/Ref FT4) 1.39 uIU/mL (0.36-3.74); Total Protein 7.2 g/dL (6.4-8.2); Troponin I < 50 ng/L (<or=60)
--- NOTE | 2022-04-15 14:35 | NUR.NOTE ---
Nursing Note: Pt is sleeping comfortably - daughter at bedside.
[2022-04-15] MEDS: Ondansetron 4 MG/2 ML VIAL IVP (16:01)
--- NOTE | 2022-04-15 16:36 | NUR.NOTE ---
Nursing Note: after zofran 4mg pt is taking sips of water per Dr. Ponce ok. Well tolerated 4oz over 20 minutes so far
[2022-04-15] MEDS: Lidocaine 2% Viscous 15 ML CUP PO (19:01)
[2022-04-15] MEDS: Mylanta Suspension 30 ML CUP PO (19:02)
[2022-04-15] MEDS: Pantoprazole 40 MG TABCR PO (19:02)
--- NOTE | 2022-04-22 09:38 | CMACTNOTE_ITS ---
- If Service Date Differs Date of service: 04/22/22 Time of Service: 09:39 Care Management Activity Note Sylvain presents in the ED for gastritis. At the request of ED provider, CM coordinates a referral to Dr. Ezra Echols of [facility] to assist Sylvain in obtaining a follow up appointment for further evaluation and treatment.
== END 2022-04-15 20:34 | disposition home or self-care (01) ==
PROVIDERS: Student in an Organized Health Care Education/Training Program; Emergency Provider Emergency Medicine; PCP Student in an Organized Health Care Education/Training Program
DX: K29.00 Acute gastritis without bleeding (principal); R11.10 Vomiting, unspecified; I10 Essential (primary) hypertension
CPT/HCPCS: 36415; 80053; 83690; 93005; 96361; 96374; 96375; 99284; 81003; 83735; 84443; 84484; 85025; 93010; J2405; J2765

== ENCOUNTER → 2022-05-21 09:05 | Outpatient (BNVA) | payer MEDICARE, BC, SELFPAY | PROVIDERS: PCP Student in an Organized Health Care Education/Training Program; Referring Provider Student in an Organized Health Care Education/Training Program; Visit Provider Student in an Organized Health Care Education/Training Program | DX: M65.331 Trigger finger, right middle finger (principal); M75.111 Incomplete rotator cuff tear or rupture of right shoulder, not specified as traumatic; M75.42 Impingement syndrome of left shoulder; M75.122 Complete rotator cuff tear or rupture of left shoulder, not specified as traumatic; M75.22 Bicipital tendinitis, left shoulder | CPT/HCPCS: 99214 ==

== ENCOUNTER → 2022-06-25 08:42 | Outpatient (BNVA) | payer MEDICARE, BC, SELFPAY | PROVIDERS: PCP Student in an Organized Health Care Education/Training Program; Referring Provider Student in an Organized Health Care Education/Training Program; Visit Provider Student in an Organized Health Care Education/Training Program | DX: M65.331 Trigger finger, right middle finger (principal) | CPT/HCPCS: 99213 ==

== ENCOUNTER → 2022-09-24 02:30 | Outpatient (CLI) | payer MEDICARE, BC, SELFPAY ==
--- NOTE | 2022-09-24 06:45 | DI.CTLCSR_ITS ---
Exam(s) CT CHEST LUNG CANCER SCREEN EXAM: CT CHEST LUNG CANCER SCREEN CLINICAL HISTORY: Screening for lung cancer,former smoker, z87.891 TECHNIQUE: Imaging Protocol: Axial computed tomography images with coronal and sagittal reformatted images were created and reviewed COMPARISON: CT CT CHEST LUNG CANCER SCREEN from 01/25/2020 FINDINGS: Tracheobronchial tree: Patent where visualized. Pulmonary parenchyma: No consolidation or dominant measurable mass. No architectural distortion. The 2 mm nodule associated with the minor fissure is unchanged. Lung Nodules: None. Mediastinum and Kelley: No dominant adenopathy or fluid collection. The esophagus is unremarkable.There is a moderate size hiatal hernia. Thyroid gland: The small partially calcified nodule in the right lobe is unchanged. No follow-up is recommended. Lymph nodes: Unremarkable. Pleura: No effusion or pneumothorax. Heart: The heart is not dilated. Moderate coronary artery calcification is present. No pericardial e ffusion. Aorta: Thoracic aorta non-dilated.Atherosclerosis is present. Upper abdomen: Status post cholecystectomy. Soft Tissues: Unremarkable. Bones: Within normal limits for the patient's age. IMPRESSION: No pulmonary nodules. Lung RADS Cat 1 - Negative: No nodules and definitely benign nodules Lung-RADS 1.0 CATEGORIES: Category 0 - Prior chest CT exam(s) being located for comparison. Category 1 - Annual screening in 12 months. No nodules or definitely benign nodules. Category 2 - Annual screening in 12 months. Benign appearance. Nodules with low likelihood of becomin g active cancer. Category 3 - 6-month follow-up. Probably benign. Short-term follow-up suggested. Nodules with low lik elihood of becoming active cancer. Category 4A - 3-month follow-up and CT/PET if >8 mm in size. Suspicious finding. Findings which requi re additional testing. Category 4B - Findings which require additional testing and tissue sampling. Suspicious finding. Category 4X - Category 3 or 4 nodules with additional features or imaging findings that increases the suspicion of malignancy. Modifier S- Potentially clinically significant finding. (Non lung cancer) RADIATION DOSE DELIVERED: 103.26mGy.cm Total DLP 2.21mGy!Error CTDIvol 103.26mGy.cm Total DLP 2.21mGy!Error CTDIvol DATA REPOSITORY: All CT scans at this facility are submitted to the National Radiology Data Registry (NRDR) Dose Index Registry (DIR) with the [employer] (A[employer]). RADIATION OPTIMIZATION: All CT scans at this facility use at least one of these dose optimization te chniques: automated exposure control; mA and/or kV adjustment per patient size (includes targeted exa ms where dose is matched to clinical indication); or iterative reconstruction.
== END ==
PROVIDERS: PCP Student in an Organized Health Care Education/Training Program; Visit Provider Student in an Organized Health Care Education/Training Program
DX: Z87.891 Personal history of nicotine dependence (principal); Z12.2 Encounter for screening for malignant neoplasm of respiratory organs
CPT/HCPCS: 71271

== ENCOUNTER 2022-09-30 04:04 | Outpatient (CLI) | payer MEDICARE, BC, SELFPAY ==
[2022-09-30 08:41] LABS: ALT 21 U/L (16-63); AST 17 U/L (15-37); Albumin 3.8 g/dL (3.4-5.0); Alkaline Phosphatase 84 U/L (46-116); Anion Gap 2.6 mmol/L (3-11); BUN 13 mg/dL (7-18); Bilirubin, Total 0.3 mg/dL (0.2-1.0); CO2 33.4 mmol/L (21.0-32.0); CREATININE 0.8 mg/dL (0.70-1.30); Calcium 8.7 mg/dL (8.5-10.1); Calculated LDL 140 mg/dL (<100); Chloride 99 mmol/L (98-107); Cholesterol 199 mg/dL (<200); Estimated GFR 100.06 (mL/min/1.73m2); Glucose 114 mg/dL (74-106); HDL Cholesterol 46 mg/dL (40-60); Potassium 4.1 mmol/L (3.5-5.1); Sodium 135 mmol/L (136-145); Total Protein 7.6 g/dL (6.4-8.2); Triglyceride 66 mg/dL (<150)
== END 2022-09-30 04:05 | disposition home or self-care (01) ==
LOC: LBO 04:05
PROVIDERS: PCP Student in an Organized Health Care Education/Training Program; Visit Provider Student in an Organized Health Care Education/Training Program
DX: I10 Essential (primary) hypertension (principal); Z13.220 Encounter for screening for lipoid disorders; N28.9 Disorder of kidney and ureter, unspecified; Z78.9 Other specified health status; Z91.89 Other specified personal risk factors, not elsewhere classified
CPT/HCPCS: 36415; 80053; 80061

== ENCOUNTER 2022-10-03 09:26 | Day surgery (SDC) | payer MEDICARE, BC, SELFPAY ==
[2022-10-03 09:54] VITALS: BP 125/48; PULSE 77; RESP 16; TEMP 36.6; O2SAT 97
[2022-10-03] MEDS: Lactated Ringers 1,000 ML 30 ML IV (10:15)
--- NOTE | 2022-10-03 10:29 | ANES.PREOP_ITS ---
General Info Date of Service Date Performed: 10/03/22 Height: 5 ft 10 in Weight: 104.2 kg Body Mass Index (BMI): 32.9 Surgical Procedure: Operation Date: 10/03/22 09:40 Proposed Procedure Side Surgeon p Trigger Finger RMF Right Wesley Cavazos MD Meds Allergies and Home Medications Allergies Allergy/AdvReac Type Severity Reaction Status Date / Time Penicillins Allergy Intermediate rash Verified 10/03/22 09:47 Home Medication Medication Instructions Recorded inhalational spacing device #1 ea 09/16/20 (Flexichamber spacer) albuterol sulfate 90 mcg/actuation 2 puff inhalation QID PRN 04/12/21 aerosol inhaler shortness of breath #18 grams turmeric 400 mg capsule See Rx Instructions PO DAILY 04/17/21 amlodipine 10 mg tablet 10 mg PO DAILY 07/03/21 esomeprazole magnesium 20 mg 40 mg PO DAILY 08/08/21 tablet,delayed release (Nexium 24HR) atorvastatin 20 mg tablet See Rx Instructions .Route 01/03/22 .COMPLEX #90 tabs loratadine 10 mg tablet See Rx Instructions .Route 01/03/22 .COMPLEX #90 tabs losartan 25 mg tablet 50 mg PO BID #180 tabs 02/08/22 acetaminophen 325 mg capsule 650 mg PO ONCE PRN 03/26/22 calcium carb 1,200 mg-mag hydrox 5 ml PO DAILY PRN #50 mL 04/15/22 270 mg-simeth 80 mg/10 mL oral susp (Mylanta Coat-Cool) ondansetron HCl 4 mg tablet 4 mg PO TID PRN nausea and 04/25/22 vomiting #30 tabs promethazine 25 mg rectal 25 mg IL Q6H PRN 05/15/22 suppository sucralfate 1 gram tablet (Carafate) 1 g PO QACHS #120 tabs 05/22/22 fluticasone propionate 50 1 spray .Route .COMPLEX #16 grams 06/26/22 mcg/actuation nasal spray,suspension sildenafil 100 mg tablet See Rx Instructions .Route 07/11/22 .COMPLEX #12 tabs gabapentin 100 mg capsule 300 mg PO QHS #90 caps 08/16/22 venlafaxine 75 mg tablet,extended 225 mg PO DAILY #270 tabs 09/26/22 release 24 hr hydrochlorothiazide 25 mg tablet 25 mg PO DAILY #90 tabs 10/02/22 Current Visit Medications: Current Medications Generic Name Dose Route Start Last Admin Trade Name Freq PRN Reason Stop Dose Admin Ringer's Solution 1,000 mls @ 30 mls/hr 10/03/22 06:00 10/03/22 10:15 IV 11/01/22 23:59 30 mls/hr INFUSION FADIA Administration Cefazolin Sodium/Dextrose 2 gm in 50 mls @ 100 mls/hr 10/03/22 06:00 Ancef Duplex IVPB 10/03/22 16:00 PREOP FADIA IV Miscellaneous Supplies 1 each 10/03/22 06:00 Iv Access IV 11/01/22 23:59 DIRECTED FADIA Oxycodone HCl 0 mg 10/03/22 07:13 Oxycodone 5 Mg Tab PO Q3H PRN PRN Pain Sodium Chloride 0 ml 10/03/22 06:00 Normal Saline Flush 10 Ml Syr IV 11/01/22 23:59 PRN PRN Sodium Chloride 0 ml 10/03/22 06:00 Normal Saline 10 Ml Vial IJ 11/01/22 23:59 DIRECTED PRN Sterile Water 0 ml 10/03/22 06:00 Water,Injection,Sterile 10 Ml Vial IJ 11/01/22 23:59 DIRECTED PRN PFSH Active Problems Active Problems: Problem Status Onset Code Ketogenic diet Z78.9 Gastroparesis 09/29/13 K31.84 Gastric outlet obstruction 09/29/13 K31.1 Trigger finger, right middle finger M65.331 Abdominal pain 09/03/13 R10.9 Rotator cuff tear, right M75.101 Pharyngeal dysphagia R13.13 Impingement syndrome of left shoulder M75.42 Gastroesophageal reflux disease without esophagitis K21.9 Schatzki's ring K22.2 Right thyroid nodule E04.1 Pharyngoesophageal dysphagia R13.14 Cervicalgia M54.2 Throat discomfort R07.0 Nausea R11.0 Osteoarthritis of left AC (acromioclavicular) joint M19.012 Tendinitis of long head of biceps brachii of left shoulder M75.22 Left rotator cuff tear M75.102 Dysphagia R13.10 Thyroid nodule greater than or equal to 1 cm in diameter incidentally noted on imaging study E04.1 Posterior subcapsular age-related cataract of left eye H25.042 Nuclear sclerotic cataract of left eye H25.12 Posterior subcapsular age-related cataract, right eye H25.041 Nuclear sclerotic cataract of right eye H25.11 Cubital tunnel syndrome on left G56.22 Hiatal hernia K44.9 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 Seasonal allergies J30.2 Reactive airway disease J45.909 Hypertension I10 Muscle spasms of neck M62.838 Hypogonadism [id number] Acne 12/13/11 L70.9 Ankle edema 12/13/11 M25.473 Disorder of function of stomach 05/01/12 K31.9 Diverticulitis of colon 12/13/11 K57.32 Headache 12/13/11 R51 Hyperlipidemia 03/17/01 E78.5 Lumbago 12/13/11 M54.5 Midline low back pain without sciatica 12/13/11 M54.5 Mucous cyst of finger 12/11/15 M67.449 Obesity, unspecified 12/13/11 E66.9 Osteoarthrosis-multiple sites 12/13/11 M15.9 Pain in upper limb 11/08/13 M79.603 Spondylosis of cervical region without myelopathy or radiculopathy 06/17/16 M47.812 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 Urinary frequency 04/16/16 R35.0 Precancerous lesion 12/13/11 D49.9 Skin lesion L98.9 Duodenal ulcer disease 12/13/11 K26.9 Cubital tunnel syndrome on right G56.21 Carpal tunnel syndrome of right wrist G56.01 Chronic cough R05 Chronic rhinitis J31.0 Post-nasal drip R09.82 Stopped smoking with greater than 30 pack year history Z87.891 Hyperplastic colon polyp K63.5 Sessile colonic polyp K63.5 Carpal tunnel syndrome, left G56.02 Bursitis of left shoulder M75.52 Wrist pain, left M25.532 Depression F32.9 Medical History Medical History ACL tear (03/30/14) Acne (04/12/09) Degenerative joint disease (04/12/09) 04/11/17 Sacroiliac joint injection[facility] Diverticula of colon (12/28/09) Erectile dysfunction (11/20/05) Head ache (03/17/01) History of esophageal dilatation (06/28/21) [facility] of peptic ulcer disease Gastric Erythema per EGD, 06/2021. H.pyl, NEG. With gastric ulcer identified in 2001. He has been on b.,i.d. proton pump inhibitor since then. He is followed by [facility] gastroenterology. Hyperlipidemia (03/17/01) Hyperplastic polyp of large intestine (09/17/06) Hypertension (05/26/09) Hypogonadism, male (11/20/05) Low back pain (04/24/09) 02/07/17 [facility] Center lumbar spondylosis Obesity (03/17/01) Peptic ulcer disease (08/17/02) Precancerous skin lesion (11/14/10) lower lip Tear of PCL (posterior cruciate ligament) of knee (03/30/14) Surgical History Surgical History Arthroplasty of knee (~2013) partial lateral meniscectomy Cholecystectomy (11/12/06) Lap [facility] cubital/carpal tunnel release (11/03/14) R side Dr Walker disc repair L4-5 (04/18/00) Dr Olson elbow repair right (09/17/07) H/O arthroscopy of right knee partial lateral meniscectomy History of esophagogastroduodenoscopy (EGD) (06/28/21) [facility] elbow fasciotomy (04/23/07) perianal fistula repair (09/25/10) Postoperative CSF leak repair 07/30/19 Amy Marrero Day following lumbar surgery on 07/26/19 Repair of umbilical hernia (08/31/10) Right small ginfer cyst (05/01/16) [place] (10/01/09) upper teeth Vasectomy (04/28/07) Tobacco Smoking/Tobacco Use Status: Former Tobacco Use Alcohol Alcohol Intake: former Substance Use Substance use: Never Substance use type: does not use Vital Signs and Lab Results Vital Signs Most Recent Vital Signs in EMR: Most Recent Vital Signs Temp Pulse Resp BP Pulse Ox 36.6 C 77 16 125/48 L 97 10/03/22 09:54 10/03/22 09:54 10/03/22 09:54 10/03/22 09:54 10/03/22 09:54 Lab Results Blood Type / Crossmatch: No Data to Display Complete Blood Count: No Data to Display Complete Metabolic Panel: Sodium 135 mmol/L (136-145) L 09/30/22 08:15 Potassium 4.1 mmol/L (3.5-5.1) 09/30/22 08:15 Chloride 99 mmol/L (98-107) 09/30/22 08:15 Carbon Dioxide 33.4 mmol/L (21.0-32.0) H 09/30/22 08:15 BUN 13 mg/dL (7-18) 09/30/22 08:15 Creatinine 0.8 mg/dL (0.70-1.30) 09/30/22 08:15 Est GFR (CKD-EPI 2020) 100.06 (mL/min/1.73m2) 09/30/22 08:15 Calcium 8.7 mg/dL (8.5-10.1) 09/30/22 08:15 Albumin 3.8 g/dL (3.4-5.0) 09/30/22 08:15 Glucose 114 mg/dL (74-106) H 09/30/22 08:15 Liver Function Panel: Alanine Aminotransferase (ALT/SGPT) 21 U/L (16-63) 09/30/22 08: 15 Aspartate Amino Transf (AST/SGOT) 17 U/L (15-37) 09/30/22 08:15 Coagulation Panel: No Data to Display Cardiac Panel: No Data to Display Arterial Blood Gas: No Data to Display Venous Blood Gas: No Data to Display Pancreas Panel: No Data to Display Thyroid Panel: No Data to Display Infectious Disease: No Data to Display Blood Cultures: No Data to Display Toxicology Panel: No Data to Display Imaging and Studies Imaging and Studies Study information below may be from another EMR and interpreted by another provider. Please see original notes in EMR for more complete details. EKG Summary: DATE/TIME OF SERVICE: 04/15/22 1157 : 1960PERFORMING LOCATION: APPROVED REPORT Exam: Resting ECG Reason for Exam: vomiting Patient Location: E HR:52 bpm ECG Measurements Heart Rate 52 AXIS IL 193 P 52 QRSd 120 QRS -44 QT 441 T22 QTc 409 Conclusion Sinus bradycardia...rate< 60 IVCD, consider RBBB...QRSd>120mS, terminal axis(90,270) sinus bradycardia at 52, borderline left axis, no STEMI, nondiagnostic EKG Echocardiogram Summary: 02/2021: LVEF 60%trace TR and MR. mild dilated ascending Ao 3.68 cm. Anesthesia Assessment and Plan Anesthesia History Personal History: No History of Anesthesia Complications Family History: No Family History of Anesthesia Complications Exercise Tolerance Exercise Tolerance: Metabolic Equivalents>4 Pertinent Negatives Pertinent Negatives: No Symptoms of GERD Cardiac & Pulmonary Exam Cardiac Exam: Normal S1/S2 Heart Sounds Pulmonary Exam: Clear Bilateral Breath Sounds Implantable Cardiac Device Does patient have a Pacemaker or an ICD?: No Airway Exam Known Difficult Airway: No Mallampati Class: 2 Mouth Opening: Normal (> 3cm) Thyromental Distance: Greater than 3 cm Neck Range of Motion: Limited ROM Neck Circumference: Thick Teeth Condition: Edentulous ASA Classification ASA Score: ASA 2 Emergency Case?: No NPO Status NPO Status: NPO Clears >2 hours, Solids >8 hours Anesthesia Plan Resuscitation Status: Full Code Anesthesia Technique: MAC Anesthesia Airway Planned: Natural Airway Monitors Used: Standard Monitors
[2022-10-03 10:31] VITALS: BMI 32.9
[2022-10-03] MEDS: ceFAZolin 2 GM/50 ML BAG IVPB (11:16)
[2022-10-03] MEDS: Sodium Bicarbonate 50 MEQ/50 ML VIAL (11:16)
[2022-10-03 11:40] VITALS: BP 124/76; PULSE 76; RESP 16; TEMP 36.5; O2SAT 98
--- NOTE | 2022-10-03 11:52 | W.PM.DSUDISC ---
Date of service: 10/03/22 Time of Service: 11:52 Discharge Plan Disposition Patient Disposition: HOME Condition: Good Discharge Details Reason For Visit: Right hand surgery Attending Provider: Wesley Cavazos Primary Care Provider: Jaymie Ramirez Home Meds and New Rx's Prescriptions: Continued sucralfate [Carafate] 1 gram tablet 1 g PO QACHS Qty: 120 1RF turmeric 400 mg capsule See Rx Instructions PO DAILY Rx Instructions: 2000 PO daily; 2000 mg for inflammation EO 09/07/20 (DME) Flexichamber Spacer See Rx Instructions .ROUTE .MEDSUPPLY Qty: 1 0RF Rx Instructions: As directed amlodipine 10 mg tablet 10 mg PO DAILY ondansetron HCl 4 mg tablet 4 mg PO TID PRN (Reason: nausea and vomiting) Qty: 30 1RF albuterol sulfate 90 mcg/actuation HFA aerosol inhaler 2 puff IH QID PRN (Reason: shortness of breath) Qty: 18 1RF Rx Instructions: As best covered by insurance esomeprazole magnesium [Nexium 24HR] 20 mg tablet,delayed release (DR/EC) 40 mg PO DAILY loratadine 10 mg tablet See Rx Instructions .ROUTE .COMPLEX Qty: 90 3RF Dose Instruction: TAKE ONE TABLET BY MOUTH EVERY DAY Rx Instructions: TAKE ONE TABLET BY MOUTH EVERY DAY atorvastatin 20 mg tablet See Rx Instructions .ROUTE .COMPLEX Qty: 90 3RF Dose Instruction: TAKE ONE TABLET BY MOUTH EVERY DAY Rx Instructions: TAKE ONE TABLET BY MOUTH EVERY DAY losartan 25 mg tablet 50 mg PO BID Qty: 180 6RF Rx Instructions: Increased to 50mg BID, 01/19/21 (25 BID 01/12/21) acetaminophen 325 mg capsule 650 mg PO ONCE PRN promethazine 25 mg suppository 25 mg ME Q6H PRN Rx Instructions: 1 suppository prn, rectally bid per [facility] [place] dated 05/13/22 [facility] fluticasone propionate 50 mcg/actuation spray,suspension 1 spray .ROUTE .COMPLEX Qty: 16 1RF Rx Instructions: 1 spray in each nostril sildenafil 100 mg tablet See Rx Instructions .ROUTE .COMPLEX Qty: 12 2RF Dose Instruction: TAKE ONE TABLET BY MOUTH DIRECTED WITHOUT FOOD 1 HOUR PRIOR TO SEX NEEDED FOR ED Rx Instructions: TAKE ONE TABLET BY MOUTH DIRECTED WITHOUT FOOD 1 HOUR PRIOR TO SEX NEEDED FOR ED gabapentin 100 mg capsule 300 mg PO QHS Qty: 90 1RF Rx Instructions: Trial (1) qHS x 2 nights, then (2) x2 , then (3)... venlafaxine 75 mg tablet extended release 24hr 225 mg PO DAILY Qty: 270 3RF Rx Instructions: Continue 225mg hydrochlorothiazide 25 mg tablet 25 mg PO DAILY Qty: 90 1RF Rx Instructions: Cont increased dose; Note 25mg tab. Mylanta Coat-Cool 1,200 mg-270 mg -80 mg/10 mL suspension 5 ml PO DAILY PRNQty: 50 0RF Rx Instructions: prn gastritis Discharge Instructions Additional Instructions: Surgery: Right middle finger trigger releases Activity: Gently increase use your hand Prescriptions: None. You may use [id number] Tylenol (acetaminophen) as needed for mild pain and Motrin/Aleve/ibuprofen/naproxen as needed for moderate pain and swelling These pain medications may be taken at the same time if needed Dressings: Keep dry for 2-3 days. May then remove and leave open to air or cover incision with Band-Aid. May shower after 5 days. Follow-up: 10-[address] Cavazos Let us know right away if you develop any redness, drainage, fevers, chest pain, or trouble breathing. Do not drink alcohol or drive for at least 24 hours after anesthesia. DS: Diagnosis Discharge Diagnosis (1) Trigger finger, right middle finger: Status: Acute
--- NOTE | 2022-10-03 11:53 | ROE_ITS ---
Date of service: 10/03/22 Time of Service: 11:53 Operative Note Operative Note DATE OF PROCEDURE: 10/03/22 PRE-OP DIAGNOSIS: Right middle trigger finger POST-OP DIAGNOSIS: same PROCEDURE: Right middle finger trigger release, CPT# 25715 SURGEON: Wesley Cavazos PASTRY SOUS CHEF: None None ANESTHESIA TYPE: Local By Surgeon Refer to Anesthesia Record ESTIMATED BLOOD LOSS: 2 COMPLICATIONS: None Patient was transported to: PACU Patient's condition: stable Indications: Please see complete medical record for details. Procedure Description: The correct patient, procedure, and side of the procedure were all verified prior to beginning. Local anesthesia with 2% lidocaine containing epinephrine was induced at the surgical site. The patient was positioned supine on the operating room table. All bony prominences were well-padded. Preoperative antibiotics were administered. The left hand was prepped and draped in the usual sterile fashion. A small volar diagonal in wrinkle approach was taken directly down to the middle finger A1 oliverio. The margins were exposed with gentle retraction and the pul lesly was exposed with a Ray-Marcelina and released sharply with careful spreading proximally distally as well as tendon excursion through the wound used to confirm complete release. Hemostasis was appropriate. The wound was irrigated and skin closed using 4-0 nylon horizontal mattress. Xeroform, gauze, and gentle Chriss bandage placed over the hand and wrist. The patient tolerated local without complication, demonstrated excellent left index finger and right ring finger flexion extension without triggering, and was transferred to back to the day surgery unit in a stable condition.
[2022-10-03 12:19] VITALS: BP 119/78; PULSE 78; RESP 16; TEMP 36.7; O2SAT 98
--- NOTE | 2022-10-03 12:29 | W.ANESPOSTOP ---
Postoperative Evaluation Date, Time and Location Date Performed: 10/03/22 Time Performed: 12:29 Patient Location: Day Surgery Unit Vital Signs Most Recent Imported Vital Signs: Most Recent Vital Signs Temp Pulse Resp BP Pulse Ox 36.5 C 76 16 124/76 98 10/03/22 11:40 10/03/22 11:40 10/03/22 11:40 10/03/22 11:40 10/03/22 11:40 Pain Score Most Recent Pain Score: Most Recent Pain Score Pain Level 0 10/03/22 11:40 Assessment Mental Status: Awake (Alert & Oriented to Patient Baseline) Airway and Respiratory Function: Patent airway with normal (patient baseline) respiratory exam Cardiovascular Function: Hemodynamically Stable Hydration Status: Adequately Hydrated Nausea & Vomiting: No Nausea or Vomiting Pain: Pt. Denies Any Pain Peripheral Nerve Block: Patient did not receive a nerve block
== END 2022-10-03 12:31 | disposition home or self-care (01) ==
PROVIDERS: PCP Student in an Organized Health Care Education/Training Program; Visit Provider Student in an Organized Health Care Education/Training Program
PROC: (CPT 26055; principal; 2022-10-03 09:30)
DX: M65.331 Trigger finger, right middle finger (principal)
CPT/HCPCS: 26055; 99213; J0690; J1885; J2250; J2405

== ENCOUNTER → 2022-10-16 09:01 | Outpatient (BNVA) | payer MEDICARE, BC, SELFPAY | PROVIDERS: PCP Student in an Organized Health Care Education/Training Program; Referring Provider Student in an Organized Health Care Education/Training Program; Visit Provider Student in an Organized Health Care Education/Training Program | DX: Z47.89 Encounter for other orthopedic aftercare (principal); M65.331 Trigger finger, right middle finger ==

== ENCOUNTER 2023-03-19 11:07 | Outpatient (CLI) | payer MEDICARE, BC, SELFPAY ==
--- NOTE | 2023-03-19 09:15 | DI.RAD_ITS ---
Exam(s) XR HAND RT COMPLETE EXAM: XR HAND RT COMPLETE CLINICAL HISTORY: pain. TECHNIQUE: 2D digital imaging was performed of the right hand. Three images were obtained. AP, late ral and oblique views were obtained. COMPARISON: No exams were available for comparison FINDINGS: BONES: No acute fracture is present. No bony destructive lesion is seen. 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 JOINTS: No dislocation present. Mild degenerative changes are seen in the hand characterized by joint space narrowing and periarticular spurring. The findings are best seen at the interphalangeal joint of the thumb. SOFT TISSUE: No soft tissue calcifications are seen. IMPRESSION: Mild degenerative changes of the hand. DATA REPOSITORY: RADIATION DOSE DELIVERED:
== END 2023-03-19 11:08 | disposition home or self-care (01) ==
LOC: DIORS 11:07
PROVIDERS: PCP Student in an Organized Health Care Education/Training Program; Referring Provider Student in an Organized Health Care Education/Training Program; Visit Provider Student in an Organized Health Care Education/Training Program
DX: M19.041 Primary osteoarthritis, right hand (principal)
CPT/HCPCS: 99213; 73130

== ENCOUNTER 2023-05-06 03:25 | Outpatient (CLI) | payer MEDICARE, BC, SELFPAY ==
[2023-05-06 07:29] LABS: HCT 43.8 % (40.0-50.0); HGB 15.6 g/dL (13.5-17.5); MCHC 35.6 % (32.0-36.0); MCV 90 fL (80-95); MPV 8.6 fL (8.0-11.0); Platelet Count 339 10^3/uL (130-400); RBC 4.88 10^6/uL (4.36-5.78); RDW 12.6 % (11.8-14.1); RDW-SD 42.1 fL; WBC 9.18 10^3/uL (4.4-10.8)
[2023-05-06 07:56] LABS: ALT 42 U/L (16-63); AST 25 U/L (15-37); Albumin 3.6 g/dL (3.4-5.0); Alkaline Phosphatase 86 U/L (46-116); Anion Gap 6.2 mmol/L (3-11); BUN 9 mg/dL (7-18); Bilirubin, Total 0.4 mg/dL (0.2-1.0); CO2 29.8 mmol/L (21.0-32.0); CREATININE 0.8 mg/dL (0.70-1.30); Calcium 8.7 mg/dL (8.5-10.1); Calculated LDL 144 mg/dL (<100); Chloride 103 mmol/L (98-107); Cholesterol 202 mg/dL (<200); Estimated GFR 99.44 (mL/min/1.73m2); Glucose 117 mg/dL (74-106); HDL Cholesterol 44 mg/dL (40-60); Potassium 4.1 mmol/L (3.5-5.1); Sodium 139 mmol/L (136-145); Total Protein 7.5 g/dL (6.4-8.2); Triglyceride 74 mg/dL (<150)
== END 2023-05-06 03:26 | disposition home or self-care (01) ==
LOC: LBO 03:25
PROVIDERS: PCP Student in an Organized Health Care Education/Training Program; Visit Provider Student in an Organized Health Care Education/Training Program
DX: I10 Essential (primary) hypertension (principal); K31.84 Gastroparesis; Z13.6 Encounter for screening for cardiovascular disorders
CPT/HCPCS: 36415; 80053; 80061; 85027

== ENCOUNTER → 2023-07-30 11:27 | Outpatient (BNVA) | payer MEDICARE, BC, SELFPAY | PROVIDERS: PCP Student in an Organized Health Care Education/Training Program; Referring Provider Student in an Organized Health Care Education/Training Program; Visit Provider Student in an Organized Health Care Education/Training Program | DX: M19.041 Primary osteoarthritis, right hand (principal) | CPT/HCPCS: 20550; 99213; J1030 ==

== ENCOUNTER → 2023-10-07 13:36 | Outpatient (BNVA) | payer MEDICARE, BC, SELFPAY | PROVIDERS: PCP Student in an Organized Health Care Education/Training Program; Referring Provider Student in an Organized Health Care Education/Training Program; Visit Provider Physical Therapy Assistant | DX: Z12.11 Encounter for screening for malignant neoplasm of colon (principal); Z86.010 Personal history of colon polyps ==

== ENCOUNTER 2023-10-11 10:09 | Emergency (ER) | payer MEDICARE, BC, SELFPAY ==
[2023-10-11 10:20] VITALS: BP 137/91; PULSE 65; RESP 18; TEMP 36.8; O2SAT 99
--- NOTE | 2023-10-11 10:45 | DI.RAD_ITS ---
Exam(s) XR CHEST 2V PA LATERAL XR THORACIC SPINE COMPLETE EXAM: XR CHEST 2V PA LATERAL and XR thoracic spine complete CLINICAL HISTORY: upper back pain TECHNIQUE: 2D digital imaging was performed of the thoracic spine and chest. Five images were obtai gurdeep. PA and lateral views were obtained. COMPARISON: CR,RF RF BARIUM SWALLOW from 05/18/2021 FINDINGS: MEDIASTINUM: Normal. HEART: Normal. PULMONARY VASCULATURE: Normal. LUNGS: Clear. PLEURAL SPACE: No pleural effusion or pneumothorax. BONE:Within normal limits for the patient's age. There are mild degenerative changes seen in the tho racic spine. Anterior cervical disc fusion is seen in the mid cervical spine. OTHER FINDINGS:The paraspinal lines are unremarkable. IMPRESSION: 1. No acute pulmonary findings. 2. No acute abnormality seen in the thoracic spine. DATA REPOSITORY: RADIATION DOSE DELIVERED:
--- NOTE | 2023-10-11 10:45 | DI.RAD_ITS ---
Exam(s) XR SCAPULA LT EXAM: XR SCAPULA LT CLINICAL HISTORY: pain. TECHNIQUE: 2D digital imaging was performed. Two images were obtained. COMPARISON: CR XR SHOULDER LT COMPLETE 2+V from 05/29/[address] CHEST LUNG CANCER SCREEN from 09/24/2022 FINDINGS: BONES: No acute fracture is present. No bony destructive lesion is seen. JOINTS: No dislocation present. There are degenerative changes seen at the glenohumeral joint. SOFT TISSUE: The visualized portions of the lungs are clear. IMPRESSION: No acute abnormality. DATA REPOSITORY: RADIATION DOSE DELIVERED:
[2023-10-11] MEDS: Methocarbamol 500 MG TAB PO (11:10)
[2023-10-11] MEDS: Acetaminophen 500 MG TAB 1000 MG PO (11:10)
[2023-10-11] MEDS: Lidocaine 5% Patch 1 PATCH TP (11:11)
--- NOTE | 2023-10-11 12:10 | DI.VRAD_ITS ---
PROCEDURE INFORMATION: Exam: XR Chest Exam date and time: 10/11/2023 11:22 AM Age: 63 years old Clinical indication: Other: Upper back pain; Prior surgery; Surgery date: 6+ months; Surgery type: Fused c soine TECHNIQUE: Imaging protocol: Radiologic exam of the chest. Views: 2 views. COMPARISON: CT CHEST LUNG CANCER SCREEN 09/24/2022 8:10 AM FINDINGS: Lungs: Unremarkable. No consolidation. Pleural spaces: Unremarkable. No pleural effusion. No pneumothorax. Heart/Mediastinum: Unremarkable. No cardiomegaly. Bones/joints: Unremarkable. IMPRESSION: No acute findings. Dictated and Authenticated by: Aiyana Duran MD. Ordering:SANTOSH Trinidad MD
--- NOTE | 2023-10-11 12:14 | DI.VRAD_ITS ---
PROCEDURE INFORMATION: Exam: XR Thoracic Spine Exam date and time: 10/11/2023 11:27 AM Age: 63 years old Clinical indication: Pain in thoracic spine; Prior surgery; Surgery date: 6+ months; Surgery type: C-spine fusion TECHNIQUE: Imaging protocol: Radiologic exam of the thoracic spine. Views: 3 views. COMPARISON: CR XR SCAPULA LT 10/11/2023 11:25 AM FINDINGS: Bones/joints: Normal. No acute fracture. Normal alignment. Soft tissues: Unremarkable. IMPRESSION: No acute findings. Dictated and Authenticated by: Aiyana Duran MD. Ordering:SANTOSH Trinidad MD
--- NOTE | 2023-10-11 12:15 | DI.VRAD_ITS ---
PROCEDURE INFORMATION: Exam: XR Left Scapula Exam date and time: 10/11/2023 11:25 AM Age: 63 years old Clinical indication: Other: Pain back and shoulder TECHNIQUE: Imaging protocol: Radiologic exam of the left scapula. Complete exam. COMPARISON: CR XR CHEST 2V PA LATERAL 10/11/2023 11:22 AM FINDINGS: Bones/joints: No acute fracture. Osteoarthritic changes at the glenohumeral joint. Soft tissues: Normal. IMPRESSION: No acute findings. Dictated and Authenticated by: Aiyana Duran MD. Ordering:SANTOSH Trinidad MD
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
== END 2023-10-11 12:55 | disposition home or self-care (01) ==
PROVIDERS: Emergency Provider Nurse Practitioner Family; PCP Student in an Organized Health Care Education/Training Program
DX: S46.812A Strain of other muscles, fascia and tendons at shoulder and upper arm level, left arm, initial encounter (principal); M47.814 Spondylosis without myelopathy or radiculopathy, thoracic region; I10 Essential (primary) hypertension; E78.5 Hyperlipidemia, unspecified; Z98.1 Arthrodesis status
CPT/HCPCS: 99283; 71046; 72072; 73010

== ENCOUNTER 2023-10-13 07:59 | Day surgery (SDC) | payer MEDICARE, BC, SELFPAY ==
--- NOTE | 2023-10-12 16:44 | W.PM.DSUDISC ---
Date of service: 10/13/23 Time of Service: 11:22 Discharge Plan Disposition Patient Disposition: Home Condition: Good Discharge Details Reason For Visit: screening colonoscopy Attending Provider: Frankie Tariq Primary Care Provider: Jaymie Ramirez Home Meds and New Rx's Prescriptions: Continued cyclobenzaprine 5 mg tablet 5 mg PO TID PRN (Reason: muscle spasm) Qty: 20 0RF turmeric 400 mg capsule See Rx Instructions PO DAILY Rx Instructions: 2000 PO daily; 2000 mg for inflammation EO 09/07/20 (DME) Flexichamber Spacer See Rx Instructions .ROUTE .MEDSUPPLY Qty: 1 0RF Rx Instructions: As directed ondansetron HCl 4 mg tablet 4 mg PO TID PRN (Reason: nausea and vomiting) Qty: 30 1RF diazepam [Valium] 5 mg tablet 5 mg PO BID PRN (Reason: anxiety) Qty: 10 1RF Rx Instructions: Trial for severe neck muscle spasm albuterol sulfate 90 mcg/actuation HFA aerosol inhaler 2 puff IH QID PRN (Reason: shortness of breath) Qty: 18 1RF Rx Instructions: As best covered by insurance promethazine 25 mg suppository 25 mg NC Q6H PRN Rx Instructions: 1 suppository prn, rectally bid per [facility] note dated 05/13/22 [facility] fluticasone propionate 50 mcg/actuation spray,suspension 1 spray .ROUTE .COMPLEX Qty: 16 1RF Rx Instructions: 1 spray in each nostril venlafaxine 75 mg tablet extended release 24hr 225 mg PO DAILY Qty: 270 3RF Rx Instructions: Continue 225mg gabapentin 100 mg capsule 300 mg PO QHS Qty: 90 3RF Rx Instructions: Trial (1) qHS x 2 nights, then (2) x2 , then (3)... losartan 25 mg tablet 50 mg PO BID Qty: 360 6RF Rx Instructions: Increased to 50mg BID, 01/19/21 (25 BID 01/12/21) atorvastatin 20 mg tablet See Rx Instructions .ROUTE .COMPLEX Qty: 90 3RF Dose Instruction: TAKE ONE TABLET BY MOUTH EVERY DAY Rx Instructions: TAKE ONE TABLET BY MOUTH EVERY DAY loratadine 10 mg tablet See Rx Instructions .ROUTE .COMPLEX Qty: 90 3RF Dose Instruction: TAKE ONE TABLET BY MOUTH EVERY DAY Rx Instructions: TAKE ONE TABLET BY MOUTH EVERY DAY amlodipine 10 mg tablet 10 mg PO DAILY Qty: 90 3RF hydrochlorothiazide 25 mg tablet 25 mg PO DAILY Qty: 90 1RF Rx Instructions: Cont increased dose; Note 25mg tab. esomeprazole magnesium [Nexium 24HR] 20 mg tablet,delayed release (DR/EC) 40 mg PO DAILY Qty: 180 3RF sildenafil 100 mg tablet See Rx Instructions .ROUTE .COMPLEX Qty: 12 1RF Dose Instruction: TAKE ONE TABLET BY MOUTH 1 HOUR PRIOR TO SEX NEEDED FOR ED. TAKE WITHOUT FOOD DIRECTED Rx Instructions: TAKE ONE TABLET BY MOUTH 1 HOUR PRIOR TO SEX NEEDED FOR ED. TAKE WITHOUT FOOD DIRECTED sucralfate 1 gram tablet See Rx Instructions .ROUTE .COMPLEX Qty: 20 0RF Dose Instruction: TAKE ONE TABLET BY MOUTH WITH MEALS AT BEDTIME Rx Instructions: TAKE ONE TABLET BY MOUTH WITH MEALS & AT BEDTIME PRN methocarbamol 500 mg tablet 500 mg PO TID PRN (Reason: muscle spasm) Qty: 20 0RF diclofenac sodium 1 % gel 2 g topical QID PRN (Reason: pain) Qty: 100 1RF Rx Instructions: apply to single elbow, wrist or hand; for hand includes palm/fingers/back of hand Discontinued polyethylene glycol 3350 17 gram/dose powder 238 g PO ONCE Qty: 238 0RF Rx Instructions: take per colonoscopy instructions bisacodyl [Dulcolax (bisacodyl)] 5 mg tablet,delayed release (DR/EC) 5 mg PO ONCE Qty: 4 0RF Rx Instructions: take per colonoscopy instructions Discharge Instructions Instructions: Colorectal Polyps (GEN) Additional Instructions: Sylvain, I was able to complete your colonoscopy today. As you know, he had a small episode of vomiting towards the end of the procedure, but overall it did not limit us at all. I did find for polyps that I removed. 2 of these were in your rectum, and seem consistent with hyperplastic polyps, which would be the lowest risk for colon cancer. The other 2 polyps were higher up in your large intestine. I removed all 4 these polyps completely. Once I have the results of the pathology report, I will be in touch with my recommendations for your next colonoscopy. If you have any questions at all, or have any complications, please let me know. 1. If tolerated, consume a soft, low fiber diet for 1-2 days. 2[address] Do not drive, drink alcohol, operate machinery, make critical decisions, or do activities that require coordination or balance for 24 hours. 3. Because air was put into your colon during the procedure, expelling air from your rectum (passing gas or farting) is normal. 4. You may not have a bowel movement for 1-3 days because of the colonoscopy prep. This is normal. 5. Go directly to the emergency room if you notice any of the following: Develop chills (warm to touch), or if you have a thermometer and your temperature is above 101 Difficulty breathing or difficultly swallowing Persistent vomiting Severe abdominal pain, other than gas cramps Severe chest pain Black, tarry stools Any bleeding ? exceeding one tablespoon 6. Call your physician if the site where your intravenous was started becomes red, swollen, painful, and warm to touch. 7. Your physician has reviewed your pre-procedure medications. Please continue to take those medications as previously ordered. You will be given specific information/education regarding any changes to your medications before leaving. Activity:: Activity as Tolerated Diet:: As Tolerated Discharge Orders Discharge Orders: Discharge Order (Routine); Ordered 10/12/23 Ordered By: Frankie Tariq DS: Diagnosis Discharge Diagnosis (1) Screening for colorectal cancer: Status: Acute Asessment and Plan: Follow-up on polypectomy results
--- NOTE | 2023-10-12 16:48 | COLE_ITS ---
Date of service: 10/13/23 Time of Service: 11:24 Colonoscopy Report Date of procedure: 10/13/23 Pre-op diagnosis general: Screening colonoscopy Post-op diagnosis procedure note: other (Colorectal polyps) Procedure: Colonoscopy with polypectomy Surgeon: Frankie Tariq Anesthesia Type: General:No Airway Estimated blood loss (mL): 10 Pathology: other (Rectal polyps, 0.5 cm polyp at 90 cm, 0.5 cm polyp at 60 cm) Complications: None Disposition: same day Indications: Sylvain is a 63 year old man with a personal history of adenomatous polyps. He needs his next screening colonoscopy. Prep: Miralax/Dulcolax Procedure Start Time: 10:44 Procedure End Time: 11:08 Retraction Time: 13 Findings: Rectal polyps, 0.5 cm polyp at 60 cm, 0.5 cm polyp at 90 cm Procedure Description: After the induction of monitored anesthetic care, and with the patient in left lateral decubitus position, I began by performing an external anorectal exam.? Perineum and skin were normal, as was the anal verge.? There was no not evidence of external hemorrhoids.? Next, I performed a digital rectal exam.? I did appreciate any abnormal findings.? Next, I advanced a colonoscope into the rectal vault.? I performed retroflexion.? This appeared normal.? There were a few rectal polyps, that were all sessile and relatively small in nature. Narrowband imaging was used to visualize the polyps, and again, they seem consistent with hyperplastic polyps. Regardless, I remove the 2 largest of these polyps with cold forceps without any issue. Using insufflation, I then advanced the colonoscope beyond the rectal folds and into the sigmoid colon before advancing towards the cecum.? The scope was noted to be in the cecum by identification of the ileocecal valve and appendiceal orifice.? I then began withdrawing the colonoscope using repeated irrigation as necessary for full evaluation of the colonic mucosa. I found 2 sessile polyps. One was at 90 cm from the anal verge, the other was at 60 cm. Both of these were sessile. I removed these both completely with cold forceps. Once the scope was withdrawn to the level of the rectum, great care was taken to examine portions of the rectal folds.? Finally, the scope was withdrawn and the patient was brought to the same-day surgery recovery unit as the anesthetic wore off. ?The findings and instructions were shared with the patient prior to discharge. [place] Bowel Prep [place] Bowel Prep Right Colon: 3 Left Colon: 3 Transverse Colon: 3 Total Score: 9
--- NOTE | 2023-10-13 | DI.RAD_ITS ---
Exam(s) XR PORTABLE CHEST AP XR ABDOMEN FLAT PLATE EXAM: 2D digital imaging was performed. CLINICAL HISTORY: post procedure abdominal discomfort. COMPARISON: CR,XR XR CHEST 2V PA LATERAL from 10/11/2023 TECHNIQUE: Supine and AP chest views were performed. FINDINGS: MEDIASTINUM: Normal. HEART: Normal. PULMONARY VASCULATURE: Normal. LUNGS: Clear. PLEURAL SPACE: No pleural effusion or pneumothorax. BONE:Within normal limits for the patient's age. OTHER FINDINGS:Normal. BOWEL GAS PATTERN: Nondistended. CALCIFICATIONS: Vascular calcifications are present. OSSEOUS STRUCTURES: Within normal limits for the patient's age. Postsurgical changes are seen at L5- S1. OTHER FINDINGS: Surgical clips are seen in the right upper quadrant of the abdomen. IMPRESSION: 1. Nonobstructive bowel gas pattern. 2. No acute pulmonary process. DATA REPOSITORY: RADIATION DOSE DELIVERED:
[2023-10-13 09:10] VITALS: BP 125/90; PULSE 69; RESP 18; TEMP 36.4; O2SAT 97
[2023-10-13] MEDS: Lactated Ringers 1,000 ML 80 ML IV (09:47)
--- NOTE | 2023-10-13 09:56 | W.ANESPRE ---
General Info Date of Service Date Performed: 10/13/23 Height: 5 ft 8 in Weight: 96.3 kg Body Mass Index (BMI): 32.3 Surgical Procedure: Operation Date: 10/13/23 10:05 Proposed Procedure Side Surgeon mark Tariq MD Meds Allergies and Home Medications Allergies Allergy/AdvReac Type Severity Reaction Status Date / Time Penicillins Allergy Intermediate rash Verified 10/13/23 09:22 Home Medication Medication Instructions Recorded inhalational spacing device #1 ea 09/16/20 (Flexichamber spacer) albuterol sulfate 90 mcg/actuation 2 puff inhalation QID PRN 04/12/21 aerosol inhaler shortness of breath #18 grams turmeric 400 mg capsule See Rx Instructions PO DAILY 04/17/21 promethazine 25 mg rectal 25 mg FL Q6H PRN 05/15/22 suppository fluticasone propionate 50 1 spray .Route .COMPLEX #16 grams 06/26/22 mcg/actuation nasal spray,suspension venlafaxine 75 mg tablet,extended 225 mg (3 x 75 mg) PO DAILY #270 09/26/22 release 24 hr tabs gabapentin 100 mg capsule 300 mg (3 x 100 mg) PO QHS #90 caps 10/14/22 atorvastatin 20 mg tablet See Rx Instructions .Route 12/16/22 .COMPLEX #90 tabs loratadine 10 mg tablet See Rx Instructions .Route 12/16/22 .COMPLEX #90 tabs losartan 25 mg tablet 50 mg (2 x 25 mg) PO BID #360 tabs 12/16/22 amlodipine 10 mg tablet 10 mg PO DAILY #90 tabs 05/03/23 hydrochlorothiazide 25 mg tablet 25 mg PO DAILY #90 tabs 07/26/23 diazepam 5 mg tablet (Valium) 5 mg PO BID PRN anxiety #10 tabs 09/10/23 ondansetron HCl 4 mg tablet 4 mg PO TID PRN nausea and 09/10/23 vomiting #30 tabs esomeprazole magnesium 20 mg 40 mg (2 x 20 mg) PO DAILY #180 09/11/23 tablet,delayed release (Nexium tabs 24HR) sildenafil 100 mg tablet See Rx Instructions .Route 09/30/23 .COMPLEX #12 tabs sucralfate 1 gram tablet See Rx Instructions .Route 10/02/23 .COMPLEX #20 tabs cyclobenzaprine 5 mg tablet 5 mg PO TID PRN muscle spasm #20 10/07/23 tabs diclofenac sodium 1 % topical gel 2 g topical QID PRN pain #100 grams 10/11/23 methocarbamol 500 mg tablet 500 mg PO TID PRN muscle spasm #20 10/11/23 tabs Current Visit Medications: Current Medications Generic Name Dose Route Start Last Admin Trade Name Freq PRN Reason Stop Dose Admin Hyoscyamine Sulfate 0.125 mg 10/12/23 16:52 Hyoscyamine 0.125 Mg Sl/Oral/Chew SL 11/11/23 16:51 DIRECTED PRN Ringer's Solution 1,000 mls @ 80 mls/hr 10/13/23 06:00 10/13/23 09:47 IV 11/07/23 23:59 80 mls/hr INFUSION FADIA Administration IV Miscellaneous Supplies 1 each 10/13/23 06:00 Iv Access IV 11/07/23 23:59 DIRECTED FADIA Ondansetron HCl 4 mg 10/12/23 16:52 Ondansetron 4 Mg/2 Ml Vial IVP 11/11/23 16:51 Q4H PRN PRN Nausea / Vomiting Sodium Chloride 0 ml 10/13/23 06:00 Normal Saline Flush 10 Ml Syr IV 11/07/23 23:59 PRN PRN Sodium Chloride 0 ml 10/13/23 06:00 Normal Saline 10 Ml Vial IJ 11/07/23 23:59 DIRECTED PRN Sterile Water 0 ml 10/13/23 06:00 Water,Injection,Sterile 10 Ml Vial IJ 11/07/23 23:59 DIRECTED PRN PFSH Active Problems Active Problems: Problem Status Onset Code Screening for colorectal cancer Z12.11, Z12.12 Impacted cerumen of left ear H61.22 Stressful life event affecting family Z63.79 Muscle strain, shoulder region S46.919A Muscles tire easily M62.89 Neck muscle strain S16.1XXA COVID ~08/18/23 U07.1 Degenerative arthritis of metacarpophalangeal joint of middle finger of right hand ~03/19/23 M19.041 Ketogenic diet Z78.9 Gastroparesis 09/29/13 K31.84 Gastric outlet obstruction 09/29/13 K31.1 Trigger finger, right middle finger M65.331 Abdominal pain 09/03/13 R10.9 Rotator cuff tear, right M75.101 Pharyngeal dysphagia R13.13 Impingement syndrome of left shoulder M75.42 Gastroesophageal reflux disease without esophagitis K21.9 Schatzki's ring K22.2 Right thyroid nodule E04.1 Pharyngoesophageal dysphagia R13.14 Cervicalgia M54.2 Throat discomfort R07.0 Nausea R11.0 Osteoarthritis of left AC (acromioclavicular) joint M19.012 Tendinitis of long head of biceps brachii of left shoulder M75.22 Left rotator cuff tear M75.102 Dysphagia R13.10 Thyroid nodule greater than or equal to 1 cm in diameter incidentally noted on imaging study E04.1 Posterior subcapsular age-related cataract of left eye H25.042 Nuclear sclerotic cataract of left eye H25.12 Posterior subcapsular age-related cataract, right eye H25.041 Nuclear sclerotic cataract of right eye H25.11 Cubital tunnel syndrome on left G56.22 Hiatal hernia K44.9 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 Seasonal allergies J30.2 Reactive airway disease J45.909 Hypertension I10 Muscle spasms of neck M62.838 Hypogonadism [id number] Acne 12/13/11 L70.9 Ankle edema 12/13/11 M25.473 Disorder of function of stomach 05/01/12 K31.9 Diverticulitis of colon 12/13/11 K57.32 Headache 12/13/11 R51 Hyperlipidemia 03/17/01 E78.5 Lumbago 12/13/11 M54.5 Midline low back pain without sciatica 12/13/11 M54.5 Mucous cyst of finger 12/11/15 M67.449 Obesity, unspecified 12/13/11 E66.9 Osteoarthrosis-multiple sites 12/13/11 M15.9 Pain in upper limb 11/08/13 M79.603 Spondylosis of cervical region without myelopathy or radiculopathy 06/17/16 M47.812 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 Urinary frequency 04/16/16 R35.0 Precancerous lesion 12/13/11 D49.9 Skin lesion L98.9 Duodenal ulcer disease 12/13/11 K26.9 Cubital tunnel syndrome on right G56.21 Carpal tunnel syndrome of right wrist G56.01 Chronic cough R05 Chronic rhinitis J31.0 Post-nasal drip R09.82 Stopped smoking with greater than 30 pack year history Z87.891 Hyperplastic colon polyp K63.5 Sessile colonic polyp K63.5 Carpal tunnel syndrome, left G56.02 Bursitis of left shoulder M75.52 Wrist pain, left M25.532 Depression F32.9 Medical History Medical History History of esophageal dilatation (06/28/21) Schatzki ring KRISTINE Laurent Peptic ulcer disease (08/17/02) Obesity (03/17/01) Hypertension (05/26/09) Precancerous skin lesion (11/14/10) lower lip Tear of PCL (posterior cruciate ligament) of knee (03/30/14) Hypogonadism, male (11/20/05) Hyperplastic polyp of large intestine (09/17/06) Degenerative joint disease (04/12/09) 04/11/17 Sacroiliac joint injection[facility] ACL tear (03/30/14) Hyperlipidemia (03/17/01) Head ache (03/17/01) Diverticula of colon (12/28/09) Acne (04/12/09) Erectile dysfunction (11/20/05) Low back pain (04/24/09) 02/07/17 [facility] Center lumbar spondylosis History of peptic ulcer disease Gastric Erythema per EGD, 06/2021. H.pyl, NEG. With gastric ulcer identified in 2001. He has been on b.,i.d. proton pump inhibitor since then. He is followed by [facility] gastroenterology. Surgical History Surgical History History of esophagogastroduodenoscopy (EGD) (06/28/21) with biopsy RONALD Laurent H/O arthroscopy of right knee partial lateral meniscectomy Postoperative CSF leak repair 07/30/19 Amy Marrero Day following lumbar surgery on 07/26/19 tooth extraction (10/01/09) upper teeth perianal fistula repair (09/25/10) left elbow fasciotomy (04/23/07) elbow repair right (09/17/07) disc repair L4-5 (04/18/00) Dr Olson cubital/carpal tunnel release (11/03/14) R side Dr Walker Vasectomy (04/28/07) Right small ginfer cyst (05/01/16) [place] Repair of umbilical hernia (08/31/10) Cholecystectomy (11/12/06) Lap [facility] Arthroplasty of knee (~2013) partial lateral meniscectomy Tobacco Smoking/Tobacco Use Status: Former Tobacco Use Alcohol Alcohol Intake: former Substance Use Substance use: Never Substance use type: does not use Vital Signs and Lab Results Vital Signs Most Recent Vital Signs in EMR: Most Recent Vital Signs Temp Pulse Resp BP Pulse Ox 36.4 C L 69 18 125/90 97 10/13/23 09:10 10/13/23 09:10 10/13/23 09:10 10/13/23 09:10 10/13/23 09:10 Lab Results Blood Type / Crossmatch: No Data to Display Complete Blood Count: No Data to Display Complete Metabolic Panel: No Data to Display Liver Function Panel: No Data to Display Coagulation Panel: No Data to Display Cardiac Panel: No Data to Display Arterial Blood Gas: No Data to Display Venous Blood Gas: No Data to Display Pancreas Panel: No Data to Display Thyroid Panel: No Data to Display Infectious Disease: No Data to Display Blood Cultures: No Data to Display Toxicology Panel: No Data to Display Imaging and Studies Imaging and Studies Study information below may be from another EMR and interpreted by another provider. Please see original notes in EMR for more complete details. EKG Summary: DATE/TIME OF SERVICE: 04/15/22 1157 : 1960PERFORMING LOCATION: ER APPROVED REPORT Exam: Resting ECG Reason for Exam: vomiting Patient Location: E HR:52 bpm ECG Measurements Heart Rate 52 AXIS FL 193 P 52 QRSd 120 QRS -44 QT 441 T22 QTc 409 Conclusion Sinus bradycardia...rate< 60 IVCD, consider RBBB...QRSd>120mS, terminal axis(90,270) sinus bradycardia at 52, borderline left axis, no STEMI, nondiagnostic EKG Echocardiogram Summary: 02/2021: LVEF 60%trace TR and MR. mild dilated ascending Ao 3.68 cm. Anesthesia Assessment and Plan Anesthesia History Personal History: No History of Anesthesia Complications Family History: No Family History of Anesthesia Complications Exercise Tolerance Exercise Tolerance: Metabolic Equivalents>4 Cardiac & Pulmonary Exam Cardiac Exam: Normal S1/S2 Heart Sounds Pulmonary Exam: Wheezing Present (Planned duoneb preoperatively) Implantable Cardiac Device Does patient have a Pacemaker or an ICD?: No Airway Exam Known Difficult Airway: No Mallampati Class: 2 Mouth Opening: Normal (> 3cm) Thyromental Distance: Greater than 3 cm Neck Range of Motion: Limited ROM Neck Circumference: Thick Teeth Condition: Edentulous ASA Classification ASA Score: ASA 2 Emergency Case?: No NPO Status NPO Status: NPO Clears >2 hours, Solids >8 hours Anesthesia Plan Resuscitation Status: Full Code Anesthesia Technique: General Anesthesia Airway Planned: Natural Airway Monitors Used: Standard Monitors
[2023-10-13 10:00] VITALS: BMI 32.3
--- NOTE | 2023-10-13 10:46 | BOWEL_PTH ---
PATIENT: Sylvain Long JR LOC: [facility] U#:[id number] AGE/SX: 63/M ROOM: RE10/13/[address]: Frankie Tariq MD : 1960 BED: DIS: 10/13/2023 SPEC #: [id number] RECD: 10/13/23 13:11 STATUS: PIPER RE #: [id number] JADON: 10/13/23 10:[address]: Frankie Tariq DEPT: Surgical Specimen RECD BY: Veronica Hamlin ENTERED: 10/13/23 13:11 SP TYPE: Bowel OTHR DR: Jaymie Ramirez DO Tissues: 1 - BIOPSY BOWEL 2 - BIOPSY BOWEL 3 - BIOPSY BOWEL Procedures: GROSS AND MICRO LEVEL 4 Comments: [id number]
[2023-10-13 11:25] VITALS: BP 127/89; PULSE 80; RESP 18; TEMP 36.7; O2SAT 97
[2023-10-13 11:58] VITALS: BP 167/95; PULSE 82; RESP 16; TEMP 36.6; O2SAT 98
[2023-10-13] MEDS: Droperidol 5 MG/2 ML VIAL 0.625 MG IVP ×2 (12:28→13:16)
--- NOTE | 2023-10-13 12:30 | W.ANESPOSTOP ---
Postoperative Evaluation Date, Time and Location Date Performed: 10/13/23 Time Performed: 12:30 Patient Location: Day Surgery Unit Vital Signs Most Recent Imported Vital Signs: Most Recent Vital Signs Temp Pulse Resp BP Pulse Ox 36.6 C 82 16 167/95 H 98 10/13/23 11:58 10/13/23 11:58 10/13/23 11:58 10/13/23 11:58 10/13/23 11:58 Pain Score Most Recent Pain Score: Most Recent Pain Score Pain Level 0 10/13/23 11:58 Assessment Mental Status: Awake (Alert & Oriented to Patient Baseline) Airway and Respiratory Function: Patent airway with normal (patient baseline) respiratory exam Cardiovascular Function: Hemodynamically Stable Hydration Status: Adequately Hydrated Nausea & Vomiting: Active Nausea or Vomiting Present Nausea and Vomiting Management: Nausea and vomiting active, being addressed with medication Pain: Pt. Denies Any Pain Peripheral Nerve Block: Patient did not receive a nerve block
[2023-10-13] MEDS: Normal Saline Flush 10 ML SYR IV ×2 (13:15→13:19)
[2023-10-13 13:20] VITALS: BP 145/87; PULSE 63; RESP 20; TEMP 36.6; O2SAT 98
[2023-10-13 13:44] VITALS: BP 161/94; PULSE 65; RESP 18; TEMP 36.5; O2SAT 99
[2023-10-13 14:48] VITALS: BP 140/71; PULSE 63; RESP 16; TEMP 36.4; O2SAT 98
--- NOTE | 2023-10-13 14:54 | PGE_ITS ---
Date of Service Date of service: 10/13/23 Time of Service: 14:54 Assessment and Plan Assessment and plan (1) Screening for colorectal cancer: Status: Acute Assessment and plan: Generally, I think he has been improving. Just x-ray is reassuring, and the abdominal x-rays do not show any signs of intraperitoneal free air. His exam is also improved. I think a probably be okay to discharge home with return instructions if needed. Subjective Subjective Interval history since last seen: Sylvain had some ongoing nausea and vomiting after the procedure. Hemodynamics were all favorable. He has been treated with several rounds of antiemetics, and is started to feel little bit better. Exam GI Other: His abdomen is soft, not very tender, and certainly less distended. He does not have any peritoneal signs. Objective Last Vital Signs Temp 97.5 F L 10/13/23 14:48 Pulse 63 10/13/23 14:48 Resp 16 10/13/23 14:48 BP 140/71 10/13/23 14:48 Pulse Ox 98 10/13/23 14:48 Time Spent with Patient Time Spent with Patient: 35-49 minutes Time was spent: preparing to see the patient(eg.review tests), ordering medications,tests, procedures, referring, communicating with other health intensive care anaesthetist, indepentently interpreting results and counseling the patient
== END 2023-10-13 15:03 | disposition home or self-care (01) ==
LOC: SUR 07:59
PROVIDERS: PCP Student in an Organized Health Care Education/Training Program; Visit Provider Surgery
PROC: 0DJD8ZZ Inspection of Lower Intestinal Tract, Via Natural or Artificial Opening Endoscopic (ICD-10-PCS; CPT 45378; principal; 2023-10-13 10:00)
DX: Z12.11 Encounter for screening for malignant neoplasm of colon (principal); Z86.010 Personal history of colon polyps; D12.4 Benign neoplasm of descending colon; K63.89 Other specified diseases of intestine
CPT/HCPCS: 45380; 88305; 71045; 74018; J1790; J2405

== ENCOUNTER → 2023-10-22 09:49 | Outpatient (BNVA) | payer MEDICARE, BC, SELFPAY | PROVIDERS: PCP Student in an Organized Health Care Education/Training Program; Referring Provider Student in an Organized Health Care Education/Training Program; Visit Provider Student in an Organized Health Care Education/Training Program | DX: M54.2 Cervicalgia (principal); M54.12 Radiculopathy, cervical region | CPT/HCPCS: 99213 ==

== ENCOUNTER → 2023-11-26 14:14 | Outpatient (CLI) | payer MEDICARE, BC, SELFPAY ==
--- NOTE | 2023-11-26 12:00 | DI.MRI_ITS ---
Exam(s) MR CERVICAL SPINE WO/W EXAM: MR CERVICAL SPINE WO/W CLINICAL HISTORY: cervical nerve root impingement,neck pain,radiculopathy,h/o surgery TECHNIQUE: Multiplanar multisequence MRI of the cervical spine was performed. CONTRAST MATERIAL: IV Contrast: 20 ML of Dotarem contrast administered. COMPARISON: MR MRI - CERVICAL SPINE WO CONT from 12/22/[address] NECK W from 04/24/2021 FINDINGS: The examination is limited due to patient motion artifact. BONES: Vertebral body heights are maintained. Intervertebral disc spaces are normal. Alignment is nor mal. Bone marrow signal intensity is within normal limits. There are postsurgical changes of anterio r cervical disc fusion at C4-C5. CERVICAL CORD: Craniovertebral junction is unremarkable. The cervical cord is normal size and signal intensity. No lesion is present. SOFT TISSUES: Unremarkable. ENHANCEMENT: There is enhancement in the soft tissues to the left of the T1-T2 level. It is incomple tely imaged on this examination. C2-3: No disc herniation or bulge is identified. No significant central spinal canal or neural forami nal stenosis. C3-4: There is prominence of the osteophyte disc complex. There is mild narrowing of the central spi nal canal. There are degenerative changes of the uncovertebral joints bilaterally. No significant c entral spinal canal or neural foraminal stenosis C4-5: No disc herniation or bulge is identified. There is narrowing of the neural foramen on the righ t. C5-6: There is prominence of the osteophyte disc complex. Degenerative changes are seen of the uncov ertebral joints on the left. There is moderate narrowing of the neural foramen on the left. C6-7: There is mild prominence of the osteophyte disc complex. There is very mild narrowing of the c entral spinal canal. Degenerative changes of the uncovertebral joints are seen on the right. There is moderate neural foraminal narrowing on the right. C7-T1: There is mild prominence of the osteophyte disc complex. There is no significant central spin al canal stenosis. IMPRESSION: 1. C4-C5 anterior cervical disc fusion. 2. Multilevel degenerative changes in the cervical spine resulting in central spinal canal or neural foraminal stenosis as described above. 3. Abnormal enhancement seen in the soft tissues lateral to the or to the left of the T1-T2 level. I t is incompletely imaged on this examination. A CT MRI of the thoracic spine without and with contra st is recommended for further evaluation. DATA REPOSITORY:
[2023-11-26 13:21] LABS: Anion Gap 3.7 mmol/L (3-11); BUN 12 mg/dL (7-18); CO2 30.3 mmol/L (21.0-32.0); CREATININE 0.9 mg/dL (0.70-1.30); Calcium 8.8 mg/dL (8.5-10.1); Chloride 99 mmol/L (98-107); Estimated GFR 95.97 (mL/min/1.73m2); Glucose 93 mg/dL (74-106); Sodium 133 mmol/L (136-145)
[2023-11-26] MEDS: Normal Saline Flush 10 ML SYR IVP (13:23)
[2023-11-26] MEDS: Gadoterate meglumine 20 ML SYRINGE IVP (13:24)
== END ==
PROVIDERS: PCP Student in an Organized Health Care Education/Training Program; Visit Provider Student in an Organized Health Care Education/Training Program
DX: M50.122 Cervical disc disorder at C5-C6 level with radiculopathy; Z98.1 Arthrodesis status; N28.9 Disorder of kidney and ureter, unspecified; M50.121 Cervical disc disorder at C4-C5 level with radiculopathy
CPT/HCPCS: 80048; 72156

== ENCOUNTER 2023-12-06 10:05 | Emergency (ER) | payer MEDICARE, BC, SELFPAY ==
[2023-12-06 10:09] VITALS: BP 135/90; PULSE 78; RESP 18; TEMP 37; O2SAT 97
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
[2023-12-06] MEDS: oxyCODONE 5 MG TAB PO (10:42)
--- NOTE | 2023-12-06 10:42 | NUR.NOTE ---
Referral faxed to PCP for neck pain, pain management within 1 week. Nursing Note:
[2023-12-06] MEDS: Gabapentin 300 MG CAP PO (10:44)
[2023-12-06] MEDS: Lidocaine 5% Patch 1 PATCH TP (10:45)
== END 2023-12-06 10:52 | disposition home or self-care (01) ==
PROVIDERS: Emergency Provider Nurse Practitioner Family; PCP Student in an Organized Health Care Education/Training Program
DX: M54.2 Cervicalgia (principal); M25.512 Pain in left shoulder; M79.622 Pain in left upper arm; G54.2 Cervical root disorders, not elsewhere classified; Z98.890 Other specified postprocedural states
CPT/HCPCS: 99283

== ENCOUNTER → 2023-12-24 01:04 | Outpatient (CLI) | payer MEDICARE, BC, SELFPAY ==
--- NOTE | 2023-12-24 06:45 | DI.MRI_ITS ---
Exam(s) MR THORACIC SPINE WO/W EXAM: MR THORACIC SPINE WO/W CLINICAL HISTORY: F/U PREV MRI,SOFT TISSUE ENHANCMENT,RADICULOPATHY,m54.10. TECHNIQUE: Multiplanar multisequence MRI of the Thoracic spine was performed. CONTRAST MATERIAL: IV Contrast: 20 mL of Dotarem contrast administered. COMPARISON: CT CT CHEST LUNG CANCER SCREEN from 09/24/2022 CR,XR XR THORACIC SPINE COMPLETE from 10/11/2023 MR MR CERVICAL SPINE WO/W from 11/26/2023 FINDINGS: Bones: The vertebral body heights are well maintained. Alignment is satisfactory. Degenerative signal changes in the lower cervical spine as well as lower thoracic spine. Cord: The thoracic cord is normal size and signal intensity. No intrinsic cord lesion is present. Discs: Narrowing of the T 2 3 disc with endplate osteophytes and mild disc bulging. No significant c entral canal stenosis or neural foraminal narrowing. Mild disc bulging 6 7 through T9-10 discs as we ll as T10-11 and T12-L1 discs. Soft tissues: No abnormal enhancement. There is no evidence of suspicious enhancement. IMPRESSION: Degenerative changes. No evidence of abnormal enhancement. The findings on the cervical spine CT we re likely artifactual. DATA REPOSITORY:
[2023-12-24] MEDS: Normal Saline Flush 10 ML SYR IVP (08:42)
[2023-12-24] MEDS: Gadoterate meglumine 20 ML SYRINGE IVP (08:43)
== END ==
PROVIDERS: PCP Student in an Organized Health Care Education/Training Program; Visit Provider Family Medicine
DX: M51.26 Other intervertebral disc displacement, lumbar region (principal)
CPT/HCPCS: 72157

== ENCOUNTER 2024-01-12 08:48 | Outpatient (CLI) | payer MEDICARE, BC, SELFPAY ==
--- NOTE | 2024-01-12 08:45 | RT.EKG_ITS ---
APPROVED REPORT Exam: Resting ECG Reason for Exam: Preoperative evaluation Patient Location: O HR:69 bpm ECG Measurements Heart Rate 69 AXIS IN 193 P 50 QRSd 146 QRS -52 QT 437 T 9 QTc 469 Conclusion Sinus rhythm...normal P axis, V-rate 50- 99 Probable left atrial enlargement...P >50mS, <-0.10mV V1 RBBB and LAFB...QRSd >120mS, axis(-40,240)
== END 2024-01-12 08:49 | disposition home or self-care (01) ==
PROVIDERS: PCP Student in an Organized Health Care Education/Training Program; Visit Provider Emergency Medicine
DX: Z01.818 Encounter for other preprocedural examination (principal); G54.2 Cervical root disorders, not elsewhere classified
CPT/HCPCS: 93010

== ENCOUNTER 2024-01-14 12:03 | Outpatient (CLI) | payer MEDICARE, BC, SELFPAY ==
[2024-01-14 11:58] LABS: Abs Immature Grans 0.02 10^3/uL (0.0-0.06); Absolute Basophil Count 0.12 10^3/uL (0.0-0.2); Absolute Eosinophil Count 0.36 10^3/uL (0.0-0.7); Absolute Lymphocyte Count 6.04 10^3/uL (1.2-3.4); Absolute Monocyte Count 0.82 10^3/uL (0.1-0.8); Eosinophils % 3.1; HCT 40.2 % (40.0-50.0); HGB 14.4 g/dL (13.5-17.5); Immature Grans % 0.2; Lymphocytes % 52.4; MCH 32.1 pg (27.0-33.0); MCHC 35.8 % (32.0-36.0); MCV 90 fL (80-95); MPV 8.5 fL (8.0-11.0); Monocytes % 7.1; Neutrophils % 36.2; Platelet Count 382 10^3/uL (130-400); RBC 4.49 10^6/uL (4.36-5.78); RDW 12.8 % (11.8-14.1); RDW-SD 42.2 fL; WBC 11.52 10^3/uL (4.4-10.8)
[2024-01-14 12:13] LABS: Absolute Neutrophil Count 4.17 10^3/uL (1.2-6.7)
[2024-01-14 12:17] LABS: Diff Comment Diff Reviewed; RBC Morphology Normal
[2024-01-14 12:43] LABS: ALT 30 U/L (16-63); AST 18 U/L (15-37); Albumin 3.9 g/dL (3.4-5.0); Alkaline Phosphatase 76 U/L (46-116); Anion Gap 4.7 mmol/L (3-11); BUN 9 mg/dL (7-18); Bilirubin, Total 0.6 mg/dL (0.2-1.0); CO2 30.3 mmol/L (21.0-32.0); CREATININE 0.9 mg/dL (0.70-1.30); Calcium 9.1 mg/dL (8.5-10.1); Calculated LDL 153 mg/dL (<100); Chloride 97 mmol/L (98-107); Cholesterol 231 mg/dL (<200); Estimated GFR 95.97 (mL/min/1.73m2); Glucose 101 mg/dL (74-106); HDL Cholesterol 55 mg/dL (40-60); Potassium 3.9 mmol/L (3.5-5.1); Sodium 132 mmol/L (136-145); Total Protein 7.6 g/dL (6.4-8.2); Triglyceride 118 mg/dL (<150)
[2024-01-14 13:07] LABS: Vitamin D 25 Total 32.7 ng/mL (30-100)
== END 2024-01-14 12:04 | disposition home or self-care (01) ==
LOC: LBO 12:04
PROVIDERS: Emergency Medicine; PCP Student in an Organized Health Care Education/Training Program; Visit Provider Student in an Organized Health Care Education/Training Program
DX: I10 Essential (primary) hypertension (principal); K90.9 Intestinal malabsorption, unspecified; G54.2 Cervical root disorders, not elsewhere classified
CPT/HCPCS: 36415; 80053; 80061; 82306; 83735; 85025

== ENCOUNTER → 2024-01-15 09:30 | Outpatient (BNVA) | payer MEDICARE, BC, SELFPAY | PROVIDERS: PCP Student in an Organized Health Care Education/Training Program; Referring Provider Student in an Organized Health Care Education/Training Program; Visit Provider Internal Medicine Cardiovascular Disease | DX: I45.10 Unspecified right bundle-branch block (principal) | CPT/HCPCS: 99213 ==

== ENCOUNTER → 2024-04-06 13:45 | Outpatient (BNVA) | payer MEDICARE, BC, SELFPAY | PROVIDERS: PCP Student in an Organized Health Care Education/Training Program; Referring Provider Student in an Organized Health Care Education/Training Program; Visit Provider Student in an Organized Health Care Education/Training Program | DX: M19.041 Primary osteoarthritis, right hand (principal); M65.331 Trigger finger, right middle finger; M25.531 Pain in right wrist | CPT/HCPCS: 20550; J1010 ==

== ENCOUNTER 2024-04-13 01:39 | Outpatient (CLI) | payer MEDICARE, BC, SELFPAY ==
[2024-04-13 11:04] LABS: Abs Immature Grans 0.02 10^3/uL (0.0-0.06); Absolute Basophil Count 0.11 10^3/uL (0.0-0.2); Absolute Lymphocyte Count 4.28 10^3/uL (1.2-3.4); Absolute Monocyte Count 0.75 10^3/uL (0.1-0.8); Absolute Neutrophil Count 5.05 10^3/uL (1.2-6.7); Eosinophils % 3.8 %; HCT 42.8 % (40.0-50.0); HGB 14.9 g/dL (13.5-17.5); Immature Grans % 0.2 %; Lymphocytes % 40.3 %; MCH 31.8 pg (27.0-33.0); MCHC 34.8 % (32.0-36.0); MCV 91 fL (80-95); MPV 8.9 fL (8.0-11.0); Monocytes % 7.1 %; Neutrophils % 47.6 %; Platelet Count 364 10^3/uL (130-400); RBC 4.69 10^6/uL (4.36-5.78); RDW-SD 40.4 fL; WBC 10.61 10^3/uL (4.4-10.8)
[2024-04-13 11:07] LABS: ESR 6 mm/hr (0-20)
[2024-04-13 12:02] LABS: C-Reactive Protein < 0.50 mg/dL (<or=0.5)
[2024-04-13 17:43] LABS: Rheumatoid Factor <8.6 IU/mL (<12.0)
[2024-04-14 09:18] LABS: Cyclic Citrullinated Peptide <2.5 U/mL (<5.0)
[2024-04-14 11:20] LABS: Lyme Ab w Rflx to Lyme Confirm Positive (Negative)
[2024-04-14 16:09] LABS: ANA Interpretation Negative (Negative)
[2024-04-14 16:43] LABS: Lyme IgG Ab Negative (Negative); Lyme IgM Ab Negative (Negative)
[2024-04-16 09:20] LABS: Anaplasma phagocytophilum Negative (Negative); B. miyamotoi PCR Negative (Negative); Babesia divergens/MO-1 Negative (Negative); Babesia duncani Negative (Negative); Babesia microti Negative (Negative); Ehrlichia chaffeensis Negative (Negative); Ehrlichia ewingii/canis Negative (Negative); Ehrlichia muris eauclairensis Negative (Negative)
== END 2024-04-13 01:40 | disposition home or self-care (01) ==
LOC: LBO 01:40
PROVIDERS: PCP Student in an Organized Health Care Education/Training Program; Visit Provider Student in an Organized Health Care Education/Training Program
DX: M25.59 Pain in other specified joint (principal)
CPT/HCPCS: 36415; 85652; 86200; 86617; 87798; 85025; 86038; 86140; 86431; 86618

== ENCOUNTER 2024-12-29 15:45 | Outpatient (CLI) | payer MEDICARE, BC, SELFPAY ==
--- NOTE | 2024-12-29 08:00 | DI.RAD_ITS ---
Exam(s) XR SHOULDER LT COMPLETE 2+V EXAM: XR SHOULDER LT COMPLETE 2+V CLINICAL HISTORY: LEFT SHOULDER PAIN. TECHNIQUE: 2D digital imaging was performed. Two views. COMPARISON: CR,XR XR SCAPULA LT from 10/11/2023 FINDINGS: BONES: No acute fracture is present. No bony destructive lesion is seen. There is mild spurring at t he tip of the acromion and greater tuberosity. Mild spurring at the rim of the glenoid and humeral h ead. Cystic changes in the glenoid not well visualized on today's exam due to overlap with the ribs. JOINTS: No dislocation present. The glenohumeral joint space is maintained. SOFT TISSUE: Normal. IMPRESSION: Mild degenerative changes. DATA REPOSITORY: RADIATION DOSE DELIVERED:
== END 2024-12-29 15:46 | disposition home or self-care (01) ==
LOC: DIORS 15:45
PROVIDERS: PCP Student in an Organized Health Care Education/Training Program; Referring Provider Student in an Organized Health Care Education/Training Program; Visit Provider Student in an Organized Health Care Education/Training Program
DX: S46.012A Strain of muscle(s) and tendon(s) of the rotator cuff of left shoulder, initial encounter; W00.0XXA Fall on same level due to ice and snow, initial encounter
CPT/HCPCS: 99214; 73030

== ENCOUNTER 2025-01-18 02:24 | Outpatient (CLI) | payer MEDICARE, BC, SELFPAY ==
--- NOTE | 2025-01-18 07:45 | DI.MRI_ITS ---
Exam(s) MR UPPER JOINT LT WO EXAM: MR UPPER JOINT LT WO CLINICAL HISTORY: L SHOULDER PAIN,traumatic tear lt rotator cuff,s46.012a,strain of lt TECHNIQUE: Multiplanar multisequence MRI of the shoulder was performed. COMPARISON: MR MR UPPER JOINT RT WO from 10/10/2021 CR XR SHOULDER LT COMPLETE 2+V from 12/29/2024 FINDINGS: MARROW:There is evidence of previous rotator cuff surgery. There is some bone edema in the greater t uberosity region without distinct fracture lines. GLENOHUMERAL JOINT: Small amount of increased joint fluid. There is some synovial thickening/debris noted in the inferior recess. There is mild-moderate cartilage loss over the osseous glenoid and the re are multiple degenerative subarticular cysts within the osseous glenoid noted. There is a tiny os teophyte on the inferior articular surface of the humeral head. ROTATOR CUFF MECHANISM: AC JOINT/ACROMIUM: Postsurgical widening appearance of the AC joint noted and there is fluid continui ty through the AC joint with the abnormal amount of fluid in the subacromial bursa space which is its elf continuous the intra-articular space (see below). There is no evidence of os acromiale. Supraspinatus: There is a prominent full-thickness tear with retraction of the musculotendinous junct ion to the medial 3rd level of the humeral head. The AP measurement of the tear is 1 cm and there is continuity of fluid between the intra-articular space and subacromial space as well as into the wide gurdeep AC joint postoperative space. No prominent muscle atrophy. Infraspinatus: There is cystic degenerative intrasubstance tearing at the musculotendinous junction o f the infraspinatus. Distal to this there is significant abnormal signal within the infraspinatus te ndon consistent with tendinosis and partial tearing. There is some tearing of the tendon also eviden t at the conjoined region. Teres Minor: Intact. No evidence of tear nor muscle atrophy. Subscapularis/anterior cuff: There is some partial thickness tearing at the insertional aspect upon t he greater tuberosity but no full-thickness tear. There is a degenerative subarticular cyst also nikita dent in the lesser tuberosity and some surrounding bone edema. BICEPS TENDON: Exhibits normal position within the intertubercular groove. There appears to be a ten odesis device in the anterior humeral head. LABRUM: There is attenuation of the superior labrum but no fluid signal seen with in the remaining scott perior labrum. There is significant tearing in the posterior labrum. The anterior labrum appears in tact. Mild increased signal noted in the inferior labrum. The inferior glenohumeral ligament is int act IMPRESSION: 1. There is evidence of prior rotator cuff surgery. However, there is full-thickness tear of the sup raspinatus with retraction of the musculotendinous junction to the medial 3rd of the humeral head. T here is significant fluid in the subacromial space in continuity through the full-thickness tear and this fluid in subacromial space is also continuous into the postsurgical articular space of the AC ariana int 2. There is tendinitis signal and partial-thickness tearing of the infraspinatus and component of ful l-thickness tearing at the conjoined tendon level. 3. There is partial-thickness tearing of the subscapularis-anterior cuff just at of the level of its insertion upon the lesser tuberosity. However, there does not appear to be a full-thickness tear at this level. There is a degenerative subarticular cyst and bone edema in the lesser tuberosity. 4. There is tearing of the posterior labrum. There is attenuation of the superior labrum. The ante rior labrum appears intact. There appears to have been biceps tenodesis at the humeral head level. 5. Moderate degenerative changes are noted in the glenohumeral joint with small joint effusion. No loose intra-articular bodies although there is some debris an synovial thickening in the inferior rec ess. There are multiple degenerative subarticular cysts in the osseous glenoid. There also some deg enerative subarticular cysts in the region of the greater tuberosity. DATA REPOSITORY:
== END 2025-01-18 02:44 ==
LOC: DI 02:24
PROVIDERS: PCP Student in an Organized Health Care Education/Training Program; Visit Provider Student in an Organized Health Care Education/Training Program
DX: S46.012A Strain of muscle(s) and tendon(s) of the rotator cuff of left shoulder, initial encounter (principal); X58.XXXA Exposure to other specified factors, initial encounter
CPT/HCPCS: 73221

== ENCOUNTER → 2025-01-25 10:29 | Outpatient (BNVA) | payer MEDICARE, BC, SELFPAY | PROVIDERS: PCP Student in an Organized Health Care Education/Training Program; Referring Provider Student in an Organized Health Care Education/Training Program; Visit Provider Student in an Organized Health Care Education/Training Program | DX: S46.012A Strain of muscle(s) and tendon(s) of the rotator cuff of left shoulder, initial encounter (principal); X58.XXXA Exposure to other specified factors, initial encounter | CPT/HCPCS: 99214 ==

== ENCOUNTER 2025-02-01 00:26 | Outpatient (CLI) | payer MEDICARE, BC, SELFPAY ==
--- NOTE | 2025-02-01 06:15 | DI.CT_ITS ---
Exam(s) CT UPPER EXTREMITY LT WO EXAM: CT UPPER EXTREMITY LT WO CLINICAL HISTORY: SURGICAL PLANNING,traumatic tear lt rotator cuff,arthritis lt glenohumeral TECHNIQUE: Imaging Protocol: Axial computed tomography images with coronal and sagittal reformatted images were created and reviewed. CONTRAST MATERIAL: Noncontrast COMPARISON: CR XR SHOULDER LT COMPLETE 2+V from 12/29/2024 FINDINGS: Bones: There is no evidence of fracture or dislocation. Bony alignment is satisfactory. No cellulitic or osteomyelitic changes are identified. There is mild joint space narrowing and periarticular spurring. There are multiple subchondral cysts in the glenoid and a few in the humeral head. The acromioclavicular joint shows no significant spurring. No lytic or sclerotic lesions are identified. Soft Tissues: Normal. IMPRESSION: Degenerative changes of the glenohumeral joint. RADIATION DOSE DELIVERED: 341.48mGy.cm Total DLP DATA REPOSITORY: All CT scans at this facility are submitted to the National Radiology Data Registry (NRDR) Dose Index Registry (DIR) with the [employer] ([employer]). RADIATION OPTIMIZATION: All CT scans at this facility use at least one of these dose optimization te chniques: automated exposure control; mA and/or kV adjustment per patient size (includes targeted exa ms where dose is matched to clinical indication); or iterative reconstruction.
== END 2025-02-01 00:46 ==
PROVIDERS: PCP Student in an Organized Health Care Education/Training Program; Visit Provider Student in an Organized Health Care Education/Training Program
DX: S46.012A Strain of muscle(s) and tendon(s) of the rotator cuff of left shoulder, initial encounter (principal); M19.012 Primary osteoarthritis, left shoulder; X58.XXXA Exposure to other specified factors, initial encounter
CPT/HCPCS: 73200

== ENCOUNTER 2025-02-05 10:44 | Outpatient (CLI) | payer MEDICARE, BC, SELFPAY ==
--- NOTE | 2025-02-05 10:45 | DI.RAD_ITS ---
Exam(s) XR CHEST 2V PA LATERAL EXAM: XR CHEST 2V PA LATERAL CLINICAL HISTORY: cough, r/o pneumonia TECHNIQUE: 2D digital imaging was performed. Two views. COMPARISON: CR XR PORTABLE CHEST AP from 10/13/2023 FINDINGS: HEART: Normal size. Aorta: Not dilated. PULMONARY VASCULATURE: Normal. MEDIASTINUM: Small hiatal hernia. LUNGS: Clear. PLEURAL SPACE: No pleural effusion or pneumothorax. BONE:Unremarkable for age. SOFT TISSUES: Unremarkable. IMPRESSION: No acute abnormality. DATA REPOSITORY: RADIATION DOSE DELIVERED:
--- NOTE | 2025-02-05 11:13 | DI.VRAD_ITS ---
PROCEDURE INFORMATION: Exam: XR Chest Exam date and time: 02/05/2025 10:58 AM Age: 64 years old Clinical indication: Other: Cough, R/O pneumonia TECHNIQUE: Imaging protocol: Radiologic exam of the chest. Views: 2 views. COMPARISON: CR XR PORTABLE CHEST AP 10/13/2023 1:58 PM FINDINGS: Lungs: No focal consolidation seen. Pleural spaces: No large pleural effusion seen. Heart/Mediastinum: No cardiomegaly. Bones/joints: No acute abnormality. IMPRESSION: No acute findings to explain reported symptoms. Dictated and Authenticated by: Wilma Jiménez MD. Orderin Albina Enamorado MD
== END 2025-02-05 11:04 ==
LOC: DI 10:46
PROVIDERS: PCP Student in an Organized Health Care Education/Training Program; Visit Provider Physician Assistant
DX: R05.9 Cough, unspecified (principal)
CPT/HCPCS: 71046

== ENCOUNTER 2025-02-07 13:43 | Outpatient (CLI) | payer MEDICARE, BC, SELFPAY ==
[2025-02-07 13:17] LABS: Abs Immature Grans 0.03 10^3/uL (0.0-0.06); Absolute Basophil Count 0.07 10^3/uL (0.0-0.2); Absolute Lymphocyte Count 4.91 10^3/uL (1.2-3.4); Basophils % 0.7 %; Eosinophils % 2.8 %; HCT 42.4 % (40.0-50.0); HGB 14.7 g/dL (13.5-17.5); Immature Grans % 0.3 %; Lymphocytes % 46.3 %; MCH 31.3 pg (27.0-33.0); MCHC 34.7 % (32.0-36.0); MCV 90 fL (80-95); MPV 8.5 fL (8.0-11.0); Monocytes % 6.6 %; Neutrophils % 43.3 %; Platelet Count 375 10^3/uL (130-400); RBC 4.69 10^6/uL (4.36-5.78); RDW 12.3 % (11.8-14.1); RDW-SD 40.7 fL; WBC 10.61 10^3/uL (4.4-10.8)
[2025-02-07 13:39] LABS: Anion Gap 6.2 mmol/L (3-11); BUN 13 mg/dL (7-18); CO2 29.8 mmol/L (21.0-32.0); CREATININE 0.7 mg/dL (0.70-1.30); Calcium 8.8 mg/dL (8.5-10.1); Chloride 100 mmol/L (98-107); Estimated GFR 102.89 (mL/min/1.73m2); Glucose 117 mg/dL (74-106); Potassium 3.5 mmol/L (3.5-5.1); Sodium 136 mmol/L (136-145)
[2025-02-07] MEDS: Omnipaque 350 MG/ML 100 ML BTL IJ (13:56)
[2025-02-07] MEDS: Normal Saline - Diluent 50 ML VIAL IJ (13:56)
--- NOTE | 2025-02-07 14:04 | DI.CT_ITS ---
Exam(s) CT NECK W EXAM: CT NECK W INDICATION: R22.1, submental swelling, mass/lump. r/o infection.. COMPARISON: CT CT NECK W from 04/24/2021 TECHNIQUE: FINDINGS: VISUALIZED PARANASAL SINUSES: There is mucosal thickening and fluid levels in both maxillary sinuses consistent bilateral sinusitis. Sphenoid sinuses are clear as are the ethmoidal air cells. The fron zainab sinuses are not developed. Mastoid air cells are clear and there is no fluid in the middle ear c avities. NASOPHARYNX: Unremarkable ORODENTAL: Patient is edentulous. No lytic nor blastic osseous findings in the mandible and maxillar y bone. TM joints appear unremarkable. OROPHARYNX: Unremarkable. No masses evident. There is relatively symmetrical increased soft tissue density anterior and below the mandible althoug h this exhibits minimal change from prior CT scan of April 2021 the and there does not appear to be a distinct peripherally enhancing abscess at this level nor elsewhere in the neck. HYPOPHARYNX: Unremarkable. Valleculae and epiglottis and aryepiglottic folds appear normal. VOCAL CORDS: Unremarkable. No masses evident. Subglottic airway appears unremarkable. THYROID GLAND: Peripherally calcified nodule in the posterior aspect of the right thyroid lobe is aga in noted, similar to 2020. No new additional focal thyroid findings and the thyroid gland exhibits n ormal size. SALIVARY GLANDS: Parotid glands appear unremarkable. Mild asymmetry in the size of the submandibular glands but no evidence of mass nor calculi. LYMPH NODES: There is no adenopathy evident in the neck and supraclavicular regions. OTHER: Anterior fusion plate noted at C4-5 level. Multilevel degenerative disc disease at this level as well as C5-6 and C6-7 levels. VISUALIZED LUNG APICES: No significant findings. IMPRESSION: 1. Bilateral maxillary sinusitis. This was not evident on prior CT scan of April 2021. 2. Increased soft tissue density anterior and subjacent to the mandible with minimal change from . 3. Peripherally calcified 1 cm nodule in the right thyroid lobe which is unchanged from April 2021 CT scan Anterior fusion plate at C4-5 level again noted and multilevel chronic degenerative disc disease. RADIATION DOSE DELIVERED: 470.71mGy.cm Total DLP DATA REPOSITORY: All CT scans at this facility are submitted to the National Radiology Data Registry (NRDR) Dose Index Registry (DIR) with the [employer] (ACR). RADIATION OPTIMIZATION: All CT scans at this facility use at least one of these dose optimization te chniques: automated exposure control; mA and/or kV adjustment per patient size (includes targeted exa ms where dose is matched to clinical indication); or iterative reconstruction.
== END 2025-02-07 14:03 ==
LOC: DI 13:44
PROVIDERS: PCP Student in an Organized Health Care Education/Training Program; Visit Provider Physician Assistant
DX: J01.00 Acute maxillary sinusitis, unspecified (principal)
CPT/HCPCS: 70491; 80048; 85025; J3490

== ENCOUNTER → 2025-02-15 09:13 | Outpatient (BNVA) | payer MEDICARE, BC, SELFPAY | PROVIDERS: PCP Student in an Organized Health Care Education/Training Program; Referring Provider Student in an Organized Health Care Education/Training Program; Visit Provider Student in an Organized Health Care Education/Training Program | DX: S46.012A Strain of muscle(s) and tendon(s) of the rotator cuff of left shoulder, initial encounter (principal); X58.XXXA Exposure to other specified factors, initial encounter | CPT/HCPCS: 99214 ==

== ENCOUNTER 2025-03-03 05:56 | Day surgery (SDC) | payer MEDICARE, BC, SELFPAY ==
[2025-03-03] VITALS (32 sets, daily range): BP systolic 107–145; BP diastolic 64–92; PULSE 60–80; RESP 13–23; TEMP 36.3–36.6; O2SAT 93–100; BMI 34.0
--- NOTE | 2025-03-03 06:54 | ANES.PREOP_ITS ---
General Info Date of Service Date Performed: 03/03/25 Height: 5 ft 10 in Weight: 107.5 kg Body Mass Index (BMI): 34.0 Surgical Procedure: Operation Date: 03/03/25 07:40 Proposed Procedure Side Surgeon p Shoulder Reverse Total Arthroplasty Left Wesley Cavazos MD Meds Allergies and Home Medications Allergies Allergy/AdvReac Type Severity Reaction Status Date / Time Penicillins Allergy Intermediate rash Verified 03/03/25 06:09 Home Medication ?Medication ?Instructions ?Recorded inhalational spacing device #1 ea 09/16/20 (Flexichamber spacer) albuterol sulfate 90 mcg/actuation 2 puff inhalation QID PRN 04/12/21 aerosol inhaler shortness of breath #18 grams turmeric 400 mg capsule See Rx Instructions PO DAILY 04/17/21 fluticasone propionate 50 1 spray .Route .COMPLEX #16 grams 06/26/22 mcg/actuation nasal spray,suspension ondansetron HCl 4 mg tablet 4 mg PO TID PRN nausea and 09/10/23 vomiting #30 tabs diclofenac sodium 1 % topical gel 2 g topical QID PRN pain #100 grams 10/11/23 cyclobenzaprine 5 mg tablet 10 mg (2 x 5 mg) PO TID muscle 12/19/23 spasm #90 tabs hydrochlorothiazide 25 mg tablet 25 mg PO DAILY #90 tabs 07/25/24 esomeprazole magnesium 20 mg 40 mg (2 x 20 mg) PO DAILY #180 09/08/24 tablet,delayed release (Nexium tabs 24HR) venlafaxine 75 mg tablet,extended 225 mg (3 x 75 mg) PO DAILY #270 10/24/24 release 24 hr tabs amlodipine 10 mg tablet See Rx Instructions .Route 11/02/24 .COMPLEX #90 tabs loratadine 10 mg tablet See Rx Instructions .Route 11/16/24 .COMPLEX #90 tabs losartan 50 mg tablet 50 mg PO BID #180 tabs 11/16/24 sucralfate 1 gram tablet See Rx Instructions .Route 11/18/24 .COMPLEX #20 tabs atorvastatin 20 mg tablet See Rx Instructions .Route 02/18/25 .COMPLEX #90 tabs sildenafil 100 mg tablet See Rx Instructions .Route 02/18/25 .COMPLEX #12 tabs naproxen 250 mg tablet 250 - 500 mg (1 - 2 x 250 mg) PO 03/03/25 BID PRN Moderate pain #40 tabs oxycodone 5 mg tablet 5 - 10 mg (1 - 2 x 5 mg) PO Q4H 03/03/25 PRN Moderate to severe pain #18 tabs Current Visit Medications: Current Medications Generic Name Dose Route Start Last Admin Trade Name Freq PRN Reason Stop Dose Admin Ringer's Solution 1,000 mls @ 30 mls/hr 03/03/25 06:00 IV 03/03/25 23:59 INFUSION FADIA Cefazolin Sodium/Dextrose 2 gm in 50 mls @ 100 mls/hr 03/03/25 06:00 Ancef Duplex IVPB 03/03/25 23:59 PREOP FADIA Tranexamic Acid/Sodium Chloride 1,000 mg in 100 mls @ 600 mls/hr 03/03/25 06:00 IVPB 03/03/25 23:59 PREOP FADIA IV Miscellaneous Supplies 1 each 03/03/25 06:00 Iv Access IV 03/03/25 23:59 DIRECTED FADIA Sodium Chloride 0 ml 03/03/25 06:00 Normal Saline Flush 10 Ml Syr IV 03/03/25 23:59 PRN PRN Sodium Chloride 0 ml 03/03/25 06:00 Normal Saline 10 Ml Vial IJ 03/03/25 23:59 DIRECTED PRN Sterile Water 0 ml 03/03/25 06:00 Water,Injection,Sterile 10 Ml Vial IJ 03/03/25 23:59 DIRECTED PRN PFSH Active Problems Active Problems: Problem Status Onset Code Traumatic tear of left rotator cuff Acute S46.012A Post-traumatic osteoarthritis, right hand Acute ~10/19/24 M19.141 Right wrist pain Acute M25.531 Polyarthralgia Acute M25.50 New onset right bundle branch block (RBBB) Acute I45.10 Radiculopathy affecting upper extremity Acute M54.10 Cervical nerve root impingement Acute G54.2 Neck pain with history of cervical spinal surgery Acute M54.2, Z98.890 Cervical radiculopathy Acute M54.12 Tubular adenoma of colon Acute ~09/2023 D12.6 Excessive cerumen in both ear canals Acute H61.23 Screening for colorectal cancer Acute Z12.11, Z12.12 Impacted cerumen of left ear Acute H61.22 Stressful life event affecting family Acute Z63.79 Muscle strain, shoulder region Acute S46.919A Muscles tire easily Acute M62.89 Neck muscle strain Acute S16.1XXA COVID Acute ~08/18/23 U07.1 Degenerative arthritis of metacarpophalangeal joint of middle finger of right hand Acute ~03/19/23 M19.041 Ketogenic diet Acute Z78.9 Gastroparesis Chronic 09/29/13 K31.84 Gastric outlet obstruction Chronic 09/29/13 K31.1 Trigger finger, right middle finger Acute M65.331 Abdominal pain Acute 09/03/13 R10.9 Rotator cuff tear, right Acute M75.101 Pharyngeal dysphagia Acute R13.13 Impingement syndrome of left shoulder Acute M75.42 Gastroesophageal reflux disease without esophagitis Acute K21.9 Schatzki's ring Chronic K22.2 Right thyroid nodule Acute E04.1 Pharyngoesophageal dysphagia Acute R13.14 Cervicalgia Acute M54.2 Throat discomfort Acute R07.0 Nausea Chronic R11.0 Osteoarthritis of left AC (acromioclavicular) joint Acute M19.012 Tendinitis of long head of biceps brachii of left shoulder Acute M75.22 Left rotator cuff tear Acute M75.102 Dysphagia Acute R13.10 Thyroid nodule greater than or equal to 1 cm in diameter incidentally noted on imaging study Acute E04.1 Posterior subcapsular age-related cataract of left eye Resolved H25.042 Nuclear sclerotic cataract of left eye Resolved H25.12 Posterior subcapsular age-related cataract, right eye Resolved H25.041 Nuclear sclerotic cataract of right eye Resolved H25.11 Cubital tunnel syndrome on left Acute G56.22 Hiatal hernia Chronic K44.9 Degenerative joint disease of spine Chronic M47.9 Seasonal allergies Chronic J30.2 Reactive airway disease Chronic J45.909 Hypertension Chronic I10 Muscle spasms of neck Chronic M62.838 Hypogonadism Chronic [id number] Acne Acute 12/13/11 L70.9 Ankle edema Acute 12/13/11 M25.473 Disorder of function of stomach Acute 05/01/12 K31.9 Diverticulitis of colon Acute 12/13/11 K57.32 Headache Acute 12/13/11 R51 Hyperlipidemia Acute 03/17/01 E78.5 Lumbago Acute 12/13/11 M54.5 Midline low back pain without sciatica Acute 12/13/11 M54.5 Mucous cyst of finger Acute 12/11/15 M67.449 Osteoarthrosis-multiple sites Acute 12/13/11 M15.9 Pain in upper limb Acute 11/08/13 M79.603 Spondylosis of cervical region without myelopathy or radiculopathy Acute 06/17/16 M47.812 Testicular hypofunction Acute 01/11/09 E29.1 Urinary frequency Acute 04/16/16 R35.0 Precancerous lesion Acute 12/13/11 D49.9 Skin lesion Acute L98.9 Duodenal ulcer disease Acute 12/13/11 K26.9 Cubital tunnel syndrome on right Acute G56.21 Carpal tunnel syndrome of right wrist Acute G56.01 Chronic cough Acute R05 Chronic rhinitis Acute J31.0 Post-nasal drip Acute R09.82 Stopped smoking with greater than 30 pack year history Acute Z87.891 Hyperplastic colon polyp Acute K63.5 Sessile colonic polyp Acute K63.5 Carpal tunnel syndrome, left Acute G56.02 Bursitis of left shoulder Acute M75.52 Wrist pain, left Acute M25.532 Depression Chronic F32.9 Medical History Medical History History of esophageal dilatation (06/28/21) Edward Laurent,[facility] Peptic ulcer disease (08/17/02) Obesity (03/17/01) Hypertension (05/26/09) Precancerous skin lesion (11/14/10) lower lip Tear of PCL (posterior cruciate ligament) of knee (03/30/14) Hypogonadism, male (11/20/05) Hyperplastic polyp of large intestine (09/17/06) Degenerative joint disease (04/12/09) 04/11/17 Sacroiliac joint injection-[facility] ACL tear (03/30/14) Hyperlipidemia (03/17/01) Head ache (03/17/01) Diverticula of colon (12/28/09) Acne (04/12/09) Erectile dysfunction (11/20/05) Low back pain (04/24/09) 02/07/17 [facility] lumbar spondylosis History of peptic ulcer disease Gastric Erythema per EGD, 06/2021. H.pyl, NEG. With gastric ulcer identified in 2001. He has been on b.,i.d. proton pump inhibitor since then. He is followed by [facility] gastroenterology. Surgical History Surgical History History of back surgery (01/19/24) C7-T1 Foraminotomy at [facility] Hx of surgical procedure UVNN: C4-5 ACDF (2017) .. L5-S1 Fusion (2018), w/ re-op for CSF leak repair. History of colonoscopy (~09/2023) Path sent History of esophagogastroduodenoscopy (EGD) (06/28/21) [facility]/O arthroscopy of right knee partial lateral meniscectomy Postoperative CSF leak repair 07/30/19 Amy Marrero Day following lumbar surgery on 07/26/19 tooth extraction (10/01/09) upper teeth perianal fistula repair (09/25/10) left elbow fasciotomy (04/23/07) elbow repair right (09/17/07) disc repair L4-5 (04/18/00) Dr Olson cubital/carpal tunnel release (11/03/14) R side Dr Walker Vasectomy (04/28/07) Right small ginfer cyst (05/01/16) [place] Repair of umbilical hernia (08/31/10) Cholecystectomy (11/12/06) Lap [facility] Arthroplasty of knee (~2013) partial lateral meniscectomy Tobacco Smoking/Tobacco Use Status: Former Tobacco Use Alcohol Alcohol Intake: former Substance Use Substance use: Never Substance use type: does not use Vital Signs and Lab Results Vital Signs Most Recent Vital Signs in EMR: Most Recent Vital Signs Temp Pulse Resp BP Pulse Ox 36.5 C 65 18 123/72 95 03/03/25 06:20 03/03/25 06:20 03/03/25 06:20 03/03/25 06:20 03/03/25 06:20 Lab Results Blood Type / Crossmatch: No Data to Display Complete Blood Count: White Blood Count 10.61 10^3/uL (4.4-10.8) 02/07/25 13:10 Red Blood Count 4.69 10^6/uL (4.36-5.78) 02/07/25 13:10 Hemoglobin 14.7 g/dL (13.5-17.5) 02/07/25 13:10 Hematocrit 42.4 % (40.0-50.0) 02/07/25 13:10 Platelet Count 375 10^3/uL (130-400) 02/07/25 13:10 Complete Metabolic Panel: Sodium 136 mmol/L (136-145) 02/07/25 13:10 Potassium 3.5 mmol/L (3.5-5.1) 02/07/25 13:10 Chloride 100 mmol/L (98-107) 02/07/25 13:10 Carbon Dioxide 29.8 mmol/L (21.0-32.0) 02/07/25 13:10 BUN 13 mg/dL (7-18) 02/07/25 13:10 Creatinine 0.7 mg/dL (0.70-1.30) 02/07/25 13:10 Est GFR (CKD-EPI 2020) 102.89 (mL/min/1.73m2) 02/07/25 13:10 Calcium 8.8 mg/dL (8.5-10.1) 02/07/25 13:10 Glucose 117 mg/dL (74-106) H 02/07/25 13:10 Liver Function Panel: No Data to Display Coagulation Panel: No Data to Display Cardiac Panel: No Data to Display Arterial Blood Gas: No Data to Display Venous Blood Gas: No Data to Display Pancreas Panel: No Data to Display Thyroid Panel: No Data to Display Infectious Disease: No Data to Display Blood Cultures: No Data to Display Toxicology Panel: No Data to Display Imaging and Studies Imaging and Studies Study information below may be from another EMR and interpreted by another provider. Please see original notes in EMR for more complete details. EKG Summary: 01/12/24: Exam: Resting ECG Reason for Exam: Preoperative evaluation Patient Location: O HR:69 bpm ECG Measurements Heart Rate 69 AXIS MO 193 P 50 QRSd 146 QRS -52 QT 437 T9 QTc 469 Conclusion Sinus rhythm...normal P axis, V-rate 50- 99 Probable left atrial enlargement...P >50mS, <-0.10mV V1 RBBB and LAFB...QRSd >120mS, axis(-40,240) Echocardiogram Summary: 02/2021: LVEF 60%trace TR and MR. mild dilated ascending Ao 3.68 cm. Anesthesia Assessment and Plan Anesthesia History Personal History: No History of Anesthesia Complications Family History: No Family History of Anesthesia Complications Exercise Tolerance Exercise Tolerance: Metabolic Equivalents>4 Cardiac & Pulmonary Exam Cardiac Exam: Normal S1/S2 Heart Sounds Pulmonary Exam: Wheezing Present Implantable Cardiac Device Does patient have a Pacemaker or an ICD?: No Airway Exam Known Difficult Airway: No Mallampati Class: 2 Mouth Opening: Normal (> 3cm) Thyromental Distance: Greater than 3 cm Neck Range of Motion: Limited ROM Neck Circumference: Thick Teeth Condition: Edentulous ASA Classification ASA Score: ASA 3 Emergency Case?: No NPO Status NPO Status: NPO Clears >2 hours, Solids >8 hours Anesthesia Plan Resuscitation Status: Full Code Anesthesia Technique: General Anesthesia Airway Planned: Endotracheal Tube Pain Management: Surgeon and patient request nerve block Monitors Used: Standard Monitors and SedLine
[2025-03-03] MEDS: Lactated Ringers 1,000 ML 30 ML IV (07:00)
--- NOTE | 2025-03-03 07:10 | W.PM.DSUDISC ---
Date of service: 03/03/25 Discharge Plan Disposition Patient Disposition: Home Condition: Stable Discharge Details Attending Provider: Wesley Cavazos Primary Care Provider: Jaymie Ramirez Home Meds and New Rx's Prescriptions: New naproxen 250 mg tablet 250 - 500 mg PO BID PRN (Reason: Moderate pain) Qty: 40 0RF oxycodone 5 mg tablet 5 - 10 mg PO Q4H PRN (Reason: Moderate to severe pain) Qty: 18 0RF doxycycline hyclate 100 mg capsule 100 mg PO BID 14 Days Qty: 28 0RF Rx Instructions: Use daily probiotic or yogurt while on antibiotic Bio-K plus 50 billion cell capsule,delayed release(DR/EC) 1 cap PO DAILY 14 Days Qty: 14 0RF Continued turmeric 400 mg capsule See Rx Instructions PO DAILY Rx Instructions: 2000 PO daily; 2000 mg for inflammation EO 09/07/20 (DME) Flexichamber Spacer See Rx Instructions .ROUTE .MEDSUPPLY Qty: 1 0RF Rx Instructions: As directed ondansetron HCl 4 mg tablet 4 mg PO TID PRN (Reason: nausea and vomiting) Qty: 30 1RF albuterol sulfate 90 mcg/actuation HFA aerosol inhaler 2 puff IH QID PRN (Reason: shortness of breath) Qty: 18 1RF Rx Instructions: As best covered by insurance fluticasone propionate 50 mcg/actuation spray,suspension 1 spray .ROUTE .COMPLEX Qty: 16 1RF Rx Instructions: 1 spray in each nostril cyclobenzaprine 5 mg tablet 10 mg PO TID Qty: 90 1RF Rx Instructions: Trial increased scheduled dose, with monitoring for effects hydrochlorothiazide 25 mg tablet 25 mg PO DAILY Qty: 90 3RF Rx Instructions: Cont increased dose; Note 25mg tab. esomeprazole magnesium [Nexium 24HR] 20 mg tablet,delayed release (DR/EC) 40 mg PO DAILY Qty: 180 3RF venlafaxine 75 mg tablet extended release 24hr 225 mg PO DAILY Qty: 270 3RF Rx Instructions: Continue 225mg amlodipine 10 mg tablet See Rx Instructions .ROUTE .COMPLEX Qty: 90 3RF Dose Instruction: TAKE 1 TABLET BY MOUTH ONCE DAILY Rx Instructions: TAKE 1 TABLET BY MOUTH ONCE DAILY loratadine 10 mg tablet See Rx Instructions .ROUTE .COMPLEX Qty: 90 3RF Dose Instruction: TAKE ONE TABLET BY MOUTH EVERY DAY Rx Instructions: TAKE ONE TABLET BY MOUTH EVERY DAY losartan 50 mg tablet 50 mg PO BID Qty: 180 3RF Rx Instructions: NOTE NEW Rx! SO ONE tablet (50mg each) BID sucralfate 1 gram tablet See Rx Instructions .ROUTE .COMPLEX Qty: 20 0RF Dose Instruction: TAKE ONE TABLET BY MOUTH WITH MEALS AT BEDTIME Rx Instructions: TAKE ONE TABLET BY MOUTH WITH MEALS & AT BEDTIME PRN sildenafil 100 mg tablet See Rx Instructions .ROUTE .COMPLEX Qty: 12 3RF Dose Instruction: TAKE ONE TABLET BY MOUTH EVERY DAY NEEDED FOR SEXUAL ACTIVITY Rx Instructions: TAKE ONE TABLET BY MOUTH EVERY DAY NEEDED FOR SEXUAL ACTIVITY atorvastatin 20 mg tablet See Rx Instructions .ROUTE .COMPLEX Qty: 90 3RF Dose Instruction: TAKE ONE TABLET BY MOUTH EVERY DAY Rx Instructions: TAKE ONE TABLET BY MOUTH EVERY DAY diclofenac sodium 1 % gel 2 g topical QID PRN (Reason: pain) Qty: 100 1RF Rx Instructions: apply to single elbow, wrist or hand; for hand includes palm/fingers/back of hand Discharge Instructions Additional Instructions: Surgery: Left reverse total shoulder arthroplasty with revision biceps tenodesis and removal of hardware 03/03/25 Activity: Do not lift anything heavier than a coffee. You should keep your arm at your side in a relatively neutral position at all times except for gentle range of motion exercises, physical therapy, and essential activities. You should use the sling whenever you are out of the house. At home it is best to remove the sling and rest the arm on a pillow at your side or support the operative side with your other hand. A physical therapy prescription will be sent electronically to start in about 3 weeks. STANDARD Reverse TSA Protocol. Prescriptions: Doxycycline 100 mg take 1 every 12 hours to reduce risk of an infection Probiotic take 1 daily (or daily yogurt) while on antibiotic Naproxen 250 mg take 1 every 12 hours with a meal as needed for moderate pain Oxycodone 5 mg take 0.5-1 every 4-6 hours as needed for severe pain You may use [id number] Tylenol (acetaminophen) as needed for mild pain. These pain medications may be taken all at once or in different combinations as needed. Also, recommend Colace (docusate) as a stool softener as surgery and pain medicine cause constipation. You may try [id number] diphenhydramine (Benadryl) 25-50 mg nightly as a sleep aid Dressings: Leave dressing in place until follow-up. Keep clean and dry at all times. No showers please. Follow-up: 10-[address] Cavazos You may take off the leg compression stockings this evening at home. You may also leave them on a few days longer if you have a history of leg swelling or edema. Please call the office during business hours with any questions or concerns. Let us know right away if you develop any redness, drainage, fevers, chest pain, or trouble breathing. Do not drink alcohol or drive for at least 24 hours after anesthesia. Stand Alone Forms: Anesthesia Discharge Inst., Marcie.Nerve Block Instructions, Toby Kramer (DSU) Referrals: Wesley Cavazos MD [ [facility] STAFF PHYSICIAN] - 03/15/25 9:30 am Discharge Orders Discharge Orders: Discharge Order (Routine); Ordered 03/03/25 Ordered By: Baljinder Underwood DS: Diagnosis Discharge Diagnosis (1) Traumatic tear of left rotator cuff: Status: Acute (2) Presence of retained hardware: Status: Acute (3) Tendinitis of long head of biceps brachii of left shoulder: Status: Acute
--- NOTE | 2025-03-03 07:15 | ROE_ITS ---
Operative Note Operative Note PRE-OP DIAGNOSIS: Left: 1. Rotator cuff arthropathy 2. Prior arthroscopic biceps tenodesis PROCEDURE: Left: 1. Reverse total shoulder arthroplasty, CPT # 98865 2. Revision open biceps tenodesis, CPT # 87175 3. Removal of deep hardware, CPT# 73678 The construction management assistant was medically required as this procedure involves retraction, protection of neurovascular structures, and manipulation of multiple instruments and implants at the same time, which cannot be done without a skilled construction management assistant. SURGEON: Wesley Cavazos DIRECTOR OF STUDENT LIFE: Baljinder Underwood ANESTHESIA TYPE: Local By Surgeon, General LMA/ETT and Primary Nerve Block Refer to Anesthesia Record ESTIMATED BLOOD LOSS: 150 COMPLICATIONS: None Patient was transported to: PACU Patient's condition: stable Implants: [employer] shoulder system Small modular baseplate with 30 mm central screw 30, 20, and 15 mm peripheral locking screws 40 mm +4 mm glenosphere Large short length stem +8 mm humeral shell and +0 mm liner Indications: See medical record for details Findings: Moderate generalized chondromalacia and high-grade griggs labral degenerative tearing. Intact prior upper margin subscapularis repair. Intact anterior lateral supraspinatus repair with large more posterior and medial transtenderness supraspinatus infraspinatus tearing. Intact prior arthroscopic biceps tenodesis. Retained prior permanent suture material from subscapularis, supraspinatus, and biceps repairs. No signs of infection. Procedure Description: In the operating room, general anesthesia was induced. The patient was positioned beachchair on the operating room table. All bony prominences were well-padded. Preoperative antibiotics were administered. The shoulder was prepped and draped in the usual sterile fashion for shoulder arthroplasty. The correct patient, procedure, and side of the procedure were all verified prior to incision. The deltopectoral approach was preinjected with 0.25% bupivacaine containing epinephrine and taken to the anterior shoulder. Care was taken to bluntly dissect the interval between the deltoid and pectoralis major muscles and to identify the cephalic vein within its fat stripe. The vein was preserved and mobilized laterally. Subdeltoid space and conjoined tendon were freed of adhesions. The long head of the biceps tendon was identified attached at the arthroscopic tenodesis site combined with the upper margin of the pectoralis major with both repair and tenodesis intact. The biceps was then secured more distally to the shoulder placement surgery with qvtrzv-if-seitl suture tape couple passes to the upper margin of the pectoralis major tendon and then amputated and followed proximally into the rotator interval. The supraspinatus permanent sutures were also identified and intact to the lateral tendon remnant. 3 samples of suture and tissue were placed into separate specimen cups for culture given the revision setting although there is no overt sign of prior surgery failure or infection. The supraspinatus lateral remnant was debrided as was the infraspinatus to more stable posterior superior cuff margin. The subscapularis was then tenotomized and released while working from superior to inferior and bringing the arm into external rotation. Care was taken to avoid t he axillary nerve by only working on the bone inferiorly and medially. Appropriate coagulation was achieved especially interiorly. The anatomic neck was cut using an oscillating saw with the humeral head bone brought back table in case there was a need for future bone grafting. Attention was then turned to the glenoid and retractors were placed and a circumferential release performed removing soft tissue about the glenoid rim. Care was taken inferiorly to work on bone only between 5 and 7:00 o'clock and bluntly elevate tissues inferiorly. The glenoid was sized and guidepin inserted accounting for patient version and inclination. The guidepin was advanced just through the far cortex ensuring adequate central fixation length. The one step prep glenoid reamer was then used to prepare glenoid according to advertising project manager specifications. The baseplate was impacted onto the glenoid surface. The central compression screw was placed. The central screw bakery products checker was used to confirm the central screw was fully seated. The locking guide was then used to drill and place appropriately lengthed inferior, anterior, and posterior screws. The [id number]-inbzufmet reamer was used to achieve adequate peripheral reaming. The glenosphere was applied with the last inserter and impacted to engage the Zamora taper. It was then locked with appropriate countersinking of the setscrew. The glenosphere had good fit, appropriate positioning, and no soft tissue or bony impingement. The proximal humerus was delivered from the wound with adduction and external rotation. The humerus was sized and pin placed. Reaming and blazing were done over the pin. The stem pin punch was used through the blazer to confirm distal path and complete preparation. The final stem was impacted into place. Trialing was started with a +0 mm shell and liner. The shoulder was reduced and taken through range of motion. Trial components were built up to +8 mm shell and +0 mm liner to achieve appropriate stability with good tension on the deltoid and conjoined tendon. Trial shell and liner were removed. The final shell was impacted onto the humeral stem and final liner was clicked into place. The shoulder was reduced and range of motion, stability, and tension confirmed to be excellent. The shoulder was copiously irrigated with Betadine and normal saline. Vancomycin powder was distributed deeply about the shoulder and through subcutaneous tissues. The cephalic vein had a rip longitudinal tear likely from retraction between the large strong pectoralis major muscle and the deltoid muscle, which was coagulated and then tied off with 0 Vicryl. The deltopectoral interval was well approximated. Subcutaneous tissue was irrigated then closed using 2-0 Monocryl in a buried interrupted fashion. Skin was closed using 3-0 Monocryl in a buried subcuticular fashion. Skin glue was applied to the incision. A silver impregnated bandage was placed over the incision. The extremity was placed into a shoulder immobilizer. The patient awoke from anesthesia without complication and was taken to the recovery room in stable condition. Date of Procedure: 03/03/25
[2025-03-03] MEDS: ceFAZolin 2 GM/50 ML BAG IVPB (08:08)
[2025-03-03] MEDS: TRANEXAMIC ACID/SOD. CHL. 1,000 MG/100 ML BAG 600 MG IVPB (08:20)
[2025-03-03] MEDS: Bupivacaine 0.25% Pres-Free W/EPI 30 ML VIAL (08:40)
--- NOTE | 2025-03-03 09:46 | W.ANESNERVE ---
Nerve Block Single Injection Procedure Date and Time Date Performed: 03/03/25 Procedure Start: 07:22 Location Where Procedure Performed Procedure Location: Day Surgery Unit Reason Performed: Postoperative Analgesia Requesting Provider: Wesley Cavazos Timeout Performed Timeout Performed: Yes Monitoring Used ECG, Blood Pressure, SpO2 and See EMR for corresponding vital signs Sterility Sterility: Hand Hygiene, Surgical Cap, Surgical Mask, Sterile Gloves and Chlorhexidine Sedation Given During Procedure Sedation Given (Indicate Dose Given): Versed IV Dose:: 2mg Patient Mental Status Patient Mental Status: Sedate with meaningful communication Nerve Block 1st Nerve Block: Laterality: Left Block Type: Interscalene Ultrasound Image Saved?: Yes Needle / Catheter Used: 80mm SonoPlex II Local Anesthetic Bolus (Indicate Dose Given): Lidocaine used for local infiltration of skin, Injected in 3-5ml increments after negative blood aspiration, Bupivacaine 0.5% Dose:: 10mL and Exparel Dose:: 10mL Additives (Indicate Dose Given): None Ultrasound: Sterile probe cover and gel used Nerve Stimulator: Supplement to Ultrasound use and No twitch or parasthesia noted < 0.5 mA Paresthesia: None Procedure Tolerated: No Complications Procedure Outcome: Successful Procedure Comment: Patient tolerated procedure well, but needed frequent redirection with positioning. Performed By: Treasure Zeng
[2025-03-03] MEDS: ceFAZolin 1 GM/50 ML BAG IVPB (11:21)
--- NOTE | 2025-03-03 11:31 | DI.RAD_ITS ---
Exam(s) XR SHOULDER LT COMPLETE 2+V EXAM: XR SHOULDER LT COMPLETE 2+V CLINICAL HISTORY: Reverse TSA. TECHNIQUE: 2D digital imaging was performed. COMPARISON: CR XR SHOULDER LT COMPLETE 2+V from 12/29/2024 FINDINGS: Two portable postop images There is satisfactory position alignment of the components of the newly placed reverse prosthesis. N o fracture nor loosening evident. IMPRESSION: Satisfactory postop appearance of the newly placed reverse prosthesis. DATA REPOSITORY: RADIATION DOSE DELIVERED:
[2025-03-03] MEDS: Lactobacillus Acidophilus CAP 1 CAP PO (12:23)
--- NOTE | 2025-03-03 12:52 | W.ANESPOSTOP ---
Postoperative Evaluation Date, Time and Location Date Performed: 03/03/25 Time Performed: 12:52 Patient Location: Day Surgery Unit Vital Signs Most Recent Imported Vital Signs: Most Recent Vital Signs Temp Pulse Resp BP Pulse Ox 36.4 C L 65 16 109/64 95 03/03/25 11:59 03/03/25 11:59 03/03/25 11:59 03/03/25 11:59 03/03/25 11:59 Pain Score Most Recent Pain Score: Most Recent Pain Score Pain Level 0 03/03/25 11:59 Assessment Mental Status: Awake (Alert & Oriented to Patient Baseline) Airway and Respiratory Function: Patent airway with normal (patient baseline) respiratory exam Cardiovascular Function: Hemodynamically Stable Hydration Status: Adequately Hydrated Nausea & Vomiting: No Nausea or Vomiting Pain: Pt. Denies Any Pain Peripheral Nerve Block: Regional nerve block not resolved at time of post operative discharge
--- NOTE | 2025-03-10 08:18 | PDOC.ANES ---
Date of service: 03/10/25 Time of Service: 08:18 Anesthesia Note Report Anesthesia Note: Called patient to discuss possible cyst on larynx. Forwarded images from case to Dr. Bowser who expressed, This looks like a normal varient that can be accentuated by the laryngoscope blade pushing the cephalad epiglottis anteriorly, but I would be happy to see him if he wanted to schedule. Updated Mr. Long and patient reports no current discomfort or complaints. Will follow up with Dr. Bowser if he desires. Dr. Cavazos made aware of the plan.
== END 2025-03-03 14:30 | disposition home or self-care (01) ==
PROVIDERS: PCP Student in an Organized Health Care Education/Training Program; Visit Provider Student in an Organized Health Care Education/Training Program
PROC: (CPT 23472; principal; 2025-03-03 07:30)
DX: M12.812 Other specific arthropathies, not elsewhere classified, left shoulder (principal); Z98.890 Other specified postprocedural states; G89.18 Other acute postprocedural pain
CPT/HCPCS: 20680; 23472; C1713; 64415; 73030; 87070; 87075; 87205; J0131; J0665; J0666; J0690; J1100; J1805; J1885; J2003; J2250; J2371; J2405; J2598; J2704; J3370; J3475

== ENCOUNTER 2025-03-15 10:26 | Outpatient (CLI) | payer MEDICARE, BC, SELFPAY ==
--- NOTE | 2025-03-15 09:15 | DI.RAD_ITS ---
Exam(s) XR SHOULDER LT COMPLETE 2+V EXAM: XR SHOULDER LT COMPLETE 2+V CLINICAL HISTORY: F/U LEFT RTSA. TECHNIQUE: 2D digital imaging was performed. Two images were obtained. Grashey and Y views were obt ained. COMPARISON: CR XR SHOULDER LT COMPLETE 2+V from 03/03/2025 FINDINGS: BONES: There are stable post operative changes of a left reverse total shoulder arthroplasty present. No fracture or dislocation. JOINTS: The orthopedic hardware is in good position. No evidence of hardware loosening. SOFT TISSUE: Postsurgical changes are seen in the soft tissues. IMPRESSION: Stable left reverse total shoulder arthroplasty. DATA REPOSITORY: RADIATION DOSE DELIVERED:
== END 2025-03-15 10:27 | disposition home or self-care (01) ==
LOC: DIORS 10:26
PROVIDERS: PCP Student in an Organized Health Care Education/Training Program; Referring Provider Student in an Organized Health Care Education/Training Program; Visit Provider Student in an Organized Health Care Education/Training Program
DX: Z47.1 Aftercare following joint replacement surgery; Z96.612 Presence of left artificial shoulder joint; M25.412 Effusion, left shoulder
CPT/HCPCS: 99024; 73030

== ENCOUNTER 2025-03-24 10:52 | Day surgery (SDC) | payer MEDICARE, BC, SELFPAY ==
[2025-03-24] MEDS: Lactated Ringers 1,000 ML 30 ML IV (11:22)
[2025-03-24 11:23] VITALS: BP 131/82; PULSE 70; RESP 16; TEMP 36.2; O2SAT 99
--- NOTE | 2025-03-24 11:34 | ANES.PREOP_ITS ---
General Info Date of Service Date Performed: 03/24/25 Height: 5 ft 10 in Weight: 107.6 kg Body Mass Index (BMI): 34.0 Surgical Procedure: Operation Date: 03/24/25 12:10 Proposed Procedure Side Surgeon p Shoulder Closed Reduction Left Wesley Cavazos MD Meds Allergies and Home Medications Allergies Allergy/AdvReac Type Severity Reaction Status Date / Time Penicillins Allergy Intermediate rash Verified 03/24/25 11:14 Home Medication ?Medication ?Instructions ?Recorded inhalational spacing device #1 ea 09/16/20 (Flexichamber spacer) albuterol sulfate 90 mcg/actuation 2 puff inhalation QID PRN 04/12/21 aerosol inhaler shortness of breath #18 grams turmeric 400 mg capsule See Rx Instructions PO DAILY 04/17/21 fluticasone propionate 50 1 spray .Route .COMPLEX #16 grams 06/26/22 mcg/actuation nasal spray,suspension ondansetron HCl 4 mg tablet 4 mg PO TID PRN nausea and 09/10/23 vomiting #30 tabs diclofenac sodium 1 % topical gel 2 g topical QID PRN pain #100 grams 10/11/23 cyclobenzaprine 5 mg tablet 10 mg (2 x 5 mg) PO TID muscle 12/19/23 spasm #90 tabs hydrochlorothiazide 25 mg tablet 25 mg PO DAILY #90 tabs 07/25/24 esomeprazole magnesium 20 mg 40 mg (2 x 20 mg) PO DAILY #180 09/08/24 tablet,delayed release (Nexium tabs 24HR) venlafaxine 75 mg tablet,extended 225 mg (3 x 75 mg) PO DAILY #270 10/24/24 release 24 hr tabs amlodipine 10 mg tablet See Rx Instructions .Route 11/02/24 .COMPLEX #90 tabs loratadine 10 mg tablet See Rx Instructions .Route 11/16/24 .COMPLEX #90 tabs losartan 50 mg tablet 50 mg PO BID #180 tabs 11/16/24 sucralfate 1 gram tablet See Rx Instructions .Route 11/18/24 .COMPLEX #20 tabs atorvastatin 20 mg tablet See Rx Instructions .Route 02/18/25 .COMPLEX #90 tabs sildenafil 100 mg tablet See Rx Instructions .Route 02/18/25 .COMPLEX #12 tabs naproxen 250 mg tablet 250 - 500 mg (1 - 2 x 250 mg) PO 03/10/25 BID PRN Moderate pain #40 tabs doxycycline hyclate 100 mg capsule 100 mg PO BID prevent infection 14 03/15/25 days #28 caps Current Visit Medications: Current Medications Generic Name Dose Route Start Last Admin Trade Name Freq PRN Reason Stop Dose Admin Ringer's Solution 1,000 mls @ 30 mls/hr 03/24/25 06:00 03/24/25 11:22 IV 03/24/25 23:59 30 mls/hr INFUSION FADIA Administration IV Miscellaneous Supplies 1 each 03/24/25 06:00 Iv Access IV 03/24/25 23:59 DIRECTED FADIA Sodium Chloride 0 ml 03/24/25 06:00 Normal Saline Flush 10 Ml Syr IV 03/24/25 23:59 PRN PRN Sodium Chloride 0 ml 03/24/25 06:00 Normal Saline 10 Ml Vial IJ 03/24/25 23:59 DIRECTED PRN Sterile Water 0 ml 03/24/25 06:00 Water,Injection,Sterile 10 Ml Vial IJ 03/24/25 23:59 DIRECTED PRN PFSH Active Problems Active Problems: Problem Status Onset Code Dislocation of left shoulder joint Acute S43.005A Presence of retained hardware Acute Z96.9 Traumatic tear of left rotator cuff Acute S46.012A Post-traumatic osteoarthritis, right hand Acute ~10/19/24 M19.141 Right wrist pain Acute M25.531 Polyarthralgia Acute M25.50 New onset right bundle branch block (RBBB) Acute I45.10 Radiculopathy affecting upper extremity Acute M54.10 Cervical nerve root impingement Acute G54.2 Neck pain with history of cervical spinal surgery Acute M54.2, Z98.890 Cervical radiculopathy Acute M54.12 Tubular adenoma of colon Acute ~09/2023 D12.6 Excessive cerumen in both ear canals Acute H61.23 Screening for colorectal cancer Acute Z12.11, Z12.12 Impacted cerumen of left ear Acute H61.22 Stressful life event affecting family Acute Z63.79 Muscle strain, shoulder region Acute S46.919A Muscles tire easily Acute M62.89 Neck muscle strain Acute S16.1XXA COVID Acute ~08/18/23 U07.1 Degenerative arthritis of metacarpophalangeal joint of middle finger of right hand Acute ~05/03/23 M19.041 Ketogenic diet Acute Z78.9 Gastroparesis Chronic 09/29/13 K31.84 Gastric outlet obstruction Chronic 09/29/13 K31.1 Trigger finger, right middle finger Acute M65.331 Abdominal pain Acute 09/03/13 R10.9 Rotator cuff tear, right Acute M75.101 Pharyngeal dysphagia Acute R13.13 Impingement syndrome of left shoulder Acute M75.42 Gastroesophageal reflux disease without esophagitis Acute K21.9 Schatzki's ring Chronic K22.2 Right thyroid nodule Acute E04.1 Pharyngoesophageal dysphagia Acute R13.14 Cervicalgia Acute M54.2 Throat discomfort Acute R07.0 Nausea Chronic R11.0 Osteoarthritis of left AC (acromioclavicular) joint Acute M19.012 Tendinitis of long head of biceps brachii of left shoulder Acute M75.22 Left rotator cuff tear Acute M75.102 Dysphagia Acute R13.10 Thyroid nodule greater than or equal to 1 cm in diameter incidentally noted on imaging study Acute E04.1 Posterior subcapsular age-related cataract of left eye Resolved H25.042 Nuclear sclerotic cataract of left eye Resolved H25.12 Posterior subcapsular age-related cataract, right eye Resolved H25.041 Nuclear sclerotic cataract of right eye Resolved H25.11 Cubital tunnel syndrome on left Acute G56.22 Hiatal hernia Chronic K44.9 Degenerative joint disease of spine Chronic M47.9 Seasonal allergies Chronic J30.2 Reactive airway disease Chronic J45.909 Hypertension Chronic I10 Muscle spasms of neck Chronic M62.838 Hypogonadism Chronic [id number] Acne Acute 12/13/11 L70.9 Ankle edema Acute 12/13/11 M25.473 Disorder of function of stomach Acute 05/01/12 K31.9 Diverticulitis of colon Acute 12/13/11 K57.32 Headache Acute 12/13/11 R51 Hyperlipidemia Acute 03/17/01 E78.5 Lumbago Acute 12/13/11 M54.5 Midline low back pain without sciatica Acute 12/13/11 M54.5 Mucous cyst of finger Acute 12/11/15 M67.449 Osteoarthrosis-multiple sites Acute 12/13/11 M15.9 Pain in upper limb Acute 11/08/13 M79.603 Spondylosis of cervical region without myelopathy or radiculopathy Acute 06/17/16 M47.812 Testicular hypofunction Acute 01/11/09 E29.1 Urinary frequency Acute 04/16/16 R35.0 Precancerous lesion Acute 12/13/11 D49.9 Skin lesion Acute L98.9 Duodenal ulcer disease Acute 12/13/11 K26.9 Cubital tunnel syndrome on right Acute G56.21 Carpal tunnel syndrome of right wrist Acute G56.01 Chronic cough Acute R05 Chronic rhinitis Acute J31.0 Post-nasal drip Acute R09.82 Stopped smoking with greater than 30 pack year history Acute Z87.891 Hyperplastic colon polyp Acute K63.5 Sessile colonic polyp Acute K63.5 Carpal tunnel syndrome, left Acute G56.02 Bursitis of left shoulder Acute M75.52 Wrist pain, left Acute M25.532 Depression Chronic F32.9 Medical History Medical History History of esophageal dilatation (06/28/21) Edward Laurent,[facility] Peptic ulcer disease (08/17/02) Obesity (03/17/01) Hypertension (05/26/09) Precancerous skin lesion (11/14/10) lower lip Tear of PCL (posterior cruciate ligament) of knee (03/30/14) Hypogonadism, male (11/20/05) Hyperplastic polyp of large intestine (09/17/06) Degenerative joint disease (04/12/09) 04/11/17 Sacroiliac joint [facility] ACL tear (03/30/14) Hyperlipidemia (03/17/01) Head ache (03/17/01) Diverticula of colon (12/28/09) Acne (04/12/09) Erectile dysfunction (11/20/05) Low back pain (04/24/09) 02/07/17 [facility] lumbar spondylosis History of peptic ulcer disease Gastric Erythema per EGD, 06/2021. H.pyl, NEG. With gastric ulcer identified in 2001. He has been on b.,i.d. proton pump inhibitor since then. He is followed by [facility] gastroenterology. Surgical History Surgical History History of back surgery (01/19/24) C7-T1 Foraminotomy at [facility] [place] Hx of surgical procedure UVNN: C4-5 ACDF (2018) .. L5-S1 Fusion (2019), w/ re-op for CSF leak repair. History of colonoscopy (~09/2023) Path sent History of esophagogastroduodenoscopy (EGD) (06/28/21) [facility] of right knee partial lateral meniscectomy Postoperative CSF leak repair 07/30/19 Amy Marrero Day following lumbar surgery on 07/26/19 tooth extraction (10/01/09) upper teeth perianal fistula repair (09/25/10) left elbow fasciotomy (04/23/07) elbow repair right (09/17/07) disc repair L4-5 (04/18/00) Dr Olson cubital/carpal tunnel release (11/03/14) R side Dr Walker Vasectomy (04/28/07) Right small ginfer cyst (05/01/16) [place] Repair of umbilical hernia (08/31/10) Cholecystectomy (11/12/06) Lap Dilcia Arthroplasty of knee (~2013) partial lateral meniscectomy Tobacco Smoking/Tobacco Use Status: Former Tobacco Use Passive smoking exposure: No Second hand exposure: No Alcohol Alcohol Intake: former Counseling provided: none Substance Use Substance use: Never Substance use type: does not use Counseling provided: none Vital Signs and Lab Results Vital Signs Most Recent Vital Signs in EMR: Most Recent Vital Signs Temp Pulse Resp BP Pulse Ox 36.2 C L 70 16 131/82 99 03/24/25 11:23 03/24/25 11:23 03/24/25 11:23 03/24/25 11:23 03/24/25 11:23 Lab Results Blood Type / Crossmatch: No Data to Display Complete Blood Count: No Data to Display Complete Metabolic Panel: No Data to Display Liver Function Panel: No Data to Display Coagulation Panel: No Data to Display Cardiac Panel: No Data to Display Arterial Blood Gas: No Data to Display Venous Blood Gas: No Data to Display Pancreas Panel: No Data to Display Thyroid Panel: No Data to Display Infectious Disease: No Data to Display Blood Cultures: No Data to Display Toxicology Panel: No Data to Display Imaging and Studies Imaging and Studies Study information below may be from another EMR and interpreted by another provider. Please see original notes in EMR for more complete details. EKG Summary: 01/12/24: Exam: Resting ECG Reason for Exam: Preoperative evaluation Patient Location: O HR:69 bpm ECG Measurements Heart Rate 69 AXIS TX 193 P 50 QRSd 146 QRS -52 QT 437 T9 QTc 469 Conclusion Sinus rhythm...normal P axis, V-rate 50- 99 Probable left atrial enlargement...P >50mS, <-0.10mV V1 RBBB and LAFB...QRSd >120mS, axis(-40,240) Echocardiogram Summary: 02/2021: LVEF 60%trace TR and MR. mild dilated ascending Ao 3.68 cm. Anesthesia Assessment and Plan Anesthesia History Personal History: No History of Anesthesia Complications Family History: No Family History of Anesthesia Complications Exercise Tolerance Exercise Tolerance: Metabolic Equivalents>4 Pertinent Negatives Pertinent Negatives: No Major Cardiovascular Symptoms or Complaints, No Major Pulmonary Symptoms or Complaints and No History of CVA/TIA Cardiac & Pulmonary Exam Cardiac Exam: Normal S1/S2 Heart Sounds Pulmonary Exam: Clear Bilateral Breath Sounds and No cough or Cold Implantable Cardiac Device Does patient have a Pacemaker or an ICD?: No Airway Exam Known Difficult Airway: No Mallampati Class: 2 Mouth Opening: Normal (> 3cm) Thyromental Distance: Greater than 3 cm Neck Range of Motion: Limited ROM Neck Circumference: Thick Teeth Condition: Edentulous ASA Classification ASA Score: ASA 2 Emergency Case?: No NPO Status NPO Status: NPO Clears >2 hours, Solids >8 hours Anesthesia Plan Resuscitation Status: Full Code Anesthesia Technique: MAC Anesthesia Airway Planned: Natural Airway Monitors Used: Standard Monitors
--- NOTE | 2025-03-24 11:41 | W.PM.DSUDISC ---
Date of service: 03/24/25 Discharge Plan Disposition Patient Disposition: Home Condition: Stable Discharge Details Attending Provider: Wesley Cavazos Primary Care Provider: Jaymie Ramirez Home Meds and New Rx's Prescriptions: Continued doxycycline hyclate 100 mg capsule 100 mg PO BID 14 Days Qty: 28 0RF Rx Instructions: Use daily probiotic or yogurt while on antibiotic turmeric 400 mg capsule See Rx Instructions PO DAILY Rx Instructions: 2000 PO daily; 2000 mg for inflammation EO 09/07/20 (DME) Flexichamber Spacer See Rx Instructions .ROUTE .MEDSUPPLY Qty: 1 0RF Rx Instructions: As directed ondansetron HCl 4 mg tablet 4 mg PO TID PRN (Reason: nausea and vomiting) Qty: 30 1RF albuterol sulfate 90 mcg/actuation HFA aerosol inhaler 2 puff IH QID PRN (Reason: shortness of breath) Qty: 18 1RF Rx Instructions: As best covered by insurance fluticasone propionate 50 mcg/actuation spray,suspension 1 spray .ROUTE .COMPLEX Qty: 16 1RF Rx Instructions: 1 spray in each nostril cyclobenzaprine 5 mg tablet 10 mg PO TID Qty: 90 1RF Rx Instructions: Trial increased scheduled dose, with monitoring for effects hydrochlorothiazide 25 mg tablet 25 mg PO DAILY Qty: 90 3RF Rx Instructions: Cont increased dose; Note 25mg tab. esomeprazole magnesium [Nexium 24HR] 20 mg tablet,delayed release (DR/EC) 40 mg PO DAILY Qty: 180 3RF venlafaxine 75 mg tablet extended release 24hr 225 mg PO DAILY Qty: 270 3RF Rx Instructions: Continue 225mg amlodipine 10 mg tablet See Rx Instructions .ROUTE .COMPLEX Qty: 90 3RF Dose Instruction: TAKE 1 TABLET BY MOUTH ONCE DAILY Rx Instructions: TAKE 1 TABLET BY MOUTH ONCE DAILY loratadine 10 mg tablet See Rx Instructions .ROUTE .COMPLEX Qty: 90 3RF Dose Instruction: TAKE ONE TABLET BY MOUTH EVERY DAY Rx Instructions: TAKE ONE TABLET BY MOUTH EVERY DAY losartan 50 mg tablet 50 mg PO BID Qty: 180 3RF Rx Instructions: NOTE NEW Rx! SO ONE tablet (50mg each) BID sucralfate 1 gram tablet See Rx Instructions .ROUTE .COMPLEX Qty: 20 0RF Dose Instruction: TAKE ONE TABLET BY MOUTH WITH MEALS AT BEDTIME Rx Instructions: TAKE ONE TABLET BY MOUTH WITH MEALS & AT BEDTIME PRN sildenafil 100 mg tablet See Rx Instructions .ROUTE .COMPLEX Qty: 12 3RF Dose Instruction: TAKE ONE TABLET BY MOUTH EVERY DAY NEEDED FOR SEXUAL ACTIVITY Rx Instructions: TAKE ONE TABLET BY MOUTH EVERY DAY NEEDED FOR SEXUAL ACTIVITY atorvastatin 20 mg tablet See Rx Instructions .ROUTE .COMPLEX Qty: 90 3RF Dose Instruction: TAKE ONE TABLET BY MOUTH EVERY DAY Rx Instructions: TAKE ONE TABLET BY MOUTH EVERY DAY naproxen 250 mg tablet 250 - 500 mg PO BID PRN (Reason: Moderate pain) Qty: 40 0RF diclofenac sodium 1 % gel 2 g topical QID PRN (Reason: pain) Qty: 100 1RF Rx Instructions: apply to single elbow, wrist or hand; for hand includes palm/fingers/back of hand Discharge Instructions Additional Instructions: Surgery: Left prosthetic shoulder dislocation closed reduction 03/24/25; Left reverse total shoulder arthroplasty with revision biceps tenodesis and removal of hardware on 03/03/25. Activity: Sling for comfort. Gentle and protected use left upper extremity. Stay in a relatively neutral position: Elbow at your side, and forearm & wrist in front of your body. Prescriptions: No new. Complete previous doxycycline prescription. Dressings: None Follow-up: 10-[address] Cavazos Please call the office during business hours with any questions or concerns. Discharge Orders Discharge Orders: Discharge Order (Routine); Ordered 03/24/25 Ordered By: Ebonie Armenta DS: Diagnosis Discharge Diagnosis (1) Dislocation of left shoulder joint: Status: Acute (2) Traumatic tear of left rotator cuff: Status: Acute
[2025-03-24 11:45] VITALS: BMI 34.0
--- NOTE | 2025-03-24 12:12 | ROE_ITS ---
Operative Note Operative Note PRE-OP DIAGNOSIS: Left: 1. Recent left reverse TSA 2. Anterior prosthetic shoulder dislocation PROCEDURE: Left shoulder closed reduction under anesthesia, CPT #04286 SURGEON: Wesley Cavazos ANESTHESIA TYPE: General LMA/ETT Refer to Anesthesia Record ESTIMATED BLOOD LOSS: 0 COMPLICATIONS: None Patient was transported to: same day Patient's condition: stable Indications: See medical record for details Procedure Description: In the operating room, general anesthesia was induced. The patient was positioned supine on the stretcher. Preoperative antibiotics were omitted. The correct patient, procedure, and side of the procedure were all verified prior to beginning. The left shoulder had obvious anterior prominence and empty sulcus sign. With the patient relaxed, the elbow at the patient's side, and the forearm in neutral position direct palm pressure downward on the anterior prominence quite readily reduced the prosthetic shoulder dislocation. There was adventism of the l ateral shoulder contour. The shoulder was then examined and seemingly stable through 45 degrees external rotation and 90 degrees forward elevation. With some anterior shock the scapula lifted off the stretcher and there was no redislocation. The left upper extremity was placed into a sling in a neutral position. The patient awoke from anesthesia without complication and was transferred back to the day surgery area for postoperative x-rays. His shoulder will be protected carefully until follow-up with me in a couple weeks. Any recurrent instability will prompt additional workup with a CT scan and likely revision surgery of the modular components. Discussed with patient and his partner. Date of Procedure: 03/24/25
[2025-03-24 12:26] VITALS: BP 112/72; PULSE 73; RESP 15; TEMP 36.6; O2SAT 96
--- NOTE | 2025-03-24 12:30 | DI.RAD_ITS ---
Exam(s) XR SHOULDER LT COMPLETE 2+V EXAM: XR SHOULDER LT COMPLETE 2+V CLINICAL HISTORY: Post-op. TECHNIQUE: 2D digital imaging was performed. COMPARISON: CR XR SHOULDER LT COMPLETE 2+V from 03/24/2025 FINDINGS: Two views, compared to earlier same date. There is realignment of the components of the reverse prosthesis when compared to earlier same date. No evidence of fracture or obvious loosening of the prosthesis components. IMPRESSION: Successful realignment of the components of the reverse prosthesis of the left shoulder. DATA REPOSITORY: RADIATION DOSE DELIVERED:
[2025-03-24 13:00] VITALS: BP 107/73; PULSE 70; RESP 16; TEMP 36.6; O2SAT 95
--- NOTE | 2025-03-24 13:09 | W.ANESPOSTOP ---
Postoperative Evaluation Date, Time and Location Date Performed: 03/24/25 Time Performed: 12:27 Patient Location: Day Surgery Unit Vital Signs Most Recent Imported Vital Signs: Most Recent Vital Signs Temp Pulse Resp BP Pulse Ox 36.6 C 70 16 107/73 95 03/24/25 13:00 03/24/25 13:00 03/24/25 13:00 03/24/25 13:00 03/24/25 13:00 Pain Score Most Recent Pain Score: Most Recent Pain Score Pain Level 6 03/24/25 13:00 Assessment Mental Status: Awake (Alert & Oriented to Patient Baseline) Airway and Respiratory Function: Patent airway with normal (patient baseline) respiratory exam Cardiovascular Function: Hemodynamically Stable Hydration Status: Adequately Hydrated Nausea & Vomiting: No Nausea or Vomiting Pain: Pt. Denies Any Pain Peripheral Nerve Block: Patient did not receive a nerve block
== END 2025-03-24 13:48 | disposition home or self-care (01) ==
PROVIDERS: PCP Student in an Organized Health Care Education/Training Program; Visit Provider Student in an Organized Health Care Education/Training Program
PROC: (CPT 23655; principal; 2025-03-24 12:00)
DX: S43.005A Unspecified dislocation of left shoulder joint, initial encounter (principal); X58.XXXA Exposure to other specified factors, initial encounter
CPT/HCPCS: 23655; 73030; J2003; J2250; J2704

== ENCOUNTER 2025-03-24 13:28 | Outpatient (CLI) | payer MEDICARE, BC, SELFPAY ==
--- NOTE | 2025-03-24 10:00 | DI.RAD_ITS ---
Exam(s) XR SHOULDER LT COMPLETE 2+V EXAM: XR SHOULDER LT COMPLETE 2+V CLINICAL HISTORY: F/U LEFT RTSA. TECHNIQUE: 2D digital imaging was performed. Three views. COMPARISON: CR XR SHOULDER LT COMPLETE 2+V from 03/15/2025 CR XR SHOULDER LT COMPLETE 2+V from 03/24/2025 FINDINGS: BONES: No acute fracture is present. No bony destructive lesion is seen. JOINTS: No dislocation present. There is anterior dislocation of the humeral portion of the shoulder prosthesis with respect to the glenoid portion. SOFT TISSUE: Normal. IMPRESSION: Anterior dislocation at the shoulder prosthesis. DATA REPOSITORY: RADIATION DOSE DELIVERED:
== END 2025-03-24 13:29 | disposition home or self-care (01) ==
LOC: DIORS 13:28
PROVIDERS: PCP Student in an Organized Health Care Education/Training Program; Referring Provider Student in an Organized Health Care Education/Training Program; Visit Provider Physician Assistant
DX: S46.012A Strain of muscle(s) and tendon(s) of the rotator cuff of left shoulder, initial encounter (principal); S43.005A Unspecified dislocation of left shoulder joint, initial encounter; X58.XXXA Exposure to other specified factors, initial encounter
CPT/HCPCS: 23655; 99214; 73030; J2003; J2250; J2704

== ENCOUNTER 2025-03-28 10:32 | Outpatient (CLI) | payer MEDICARE, BC, SELFPAY ==
--- NOTE | 2025-03-28 09:00 | DI.RAD_ITS ---
Exam(s) XR SHOULDER LT COMPLETE 2+V EXAM: XR SHOULDER LT COMPLETE 2+V CLINICAL HISTORY: S/P left RTSA. TECHNIQUE: 2D digital imaging was performed. Three images were obtained. Grashey and Y views were o btained. COMPARISON: CR XR SHOULDER LT COMPLETE 2+V from 03/24/2025 FINDINGS: BONES: There are stable post operative changes of a left total reverse shoulder arthroplasty present. No fracture or dislocation. JOINTS: The orthopedic hardware is in good position. No evidence of hardware loosening. SOFT TISSUE: Normal. IMPRESSION: Stable left reverse total shoulder arthroplasty. DATA REPOSITORY: RADIATION DOSE DELIVERED:
== END 2025-03-28 10:33 | disposition home or self-care (01) ==
LOC: DIORS 10:32
PROVIDERS: PCP Student in an Organized Health Care Education/Training Program; Referring Provider Student in an Organized Health Care Education/Training Program; Visit Provider Physician Assistant
DX: S43.005A Unspecified dislocation of left shoulder joint, initial encounter (principal); Z47.1 Aftercare following joint replacement surgery; S46.012A Strain of muscle(s) and tendon(s) of the rotator cuff of left shoulder, initial encounter; X58.XXXA Exposure to other specified factors, initial encounter
CPT/HCPCS: 99214; 73030

== ENCOUNTER 2025-03-29 11:12 | Outpatient (CLI) | payer MEDICARE, BC, SELFPAY ==
--- NOTE | 2025-03-29 11:00 | DI.CT_ITS ---
Exam(s) CT UPPER EXTREMITY LT WO EXAM: CT UPPER EXTREMITY LT WO CLINICAL HISTORY: S/P TSA, RECURRENT SHOULDER DISLOCATIONS S43.005A DISLOCATION LEFT SHOULDER. TECHNIQUE: Imaging Protocol: Axial computed tomography images with coronal and sagittal reformatted images were created and reviewed. COMPARISON: CT CT UPPER EXTREMITY LT WO from 02/01/2025 CR XR SHOULDER LT COMPLETE 2+V from 03/24/2025 CR XR SHOULDER LT COMPLETE 2+V from 03/24/2025 CR XR SHOULDER LT COMPLETE 2+V from 03/28/2025 FINDINGS: There is artifact from the patient's left reverse total shoulder arthroplasty. Bones: Within the limits of the examination no definite fracture is identified. No lucencies are se en around the orthopedic hardware to suggest loosening. There is no dislocation. The acromioclavicu lar joint is well maintained. No lytic or sclerotic lesions are identified. The inferior aspect of t he patient's anterior cervical disc fusion is seen. Age-appropriate degenerative changes are present throughout the visualized lower cervical and thoracic spine. Soft Tissues: 3 vessel coronary artery calcification is present. There is a in fluid collection over lying the anterior deltoid measuring 1.8 cm AP x 4.9 cm transverse by 10 cm craniocaudad. It is subo ptimally characterized due to artifact from the patient's orthopedic hardware. IMPRESSION: 1. The patient's left reverse total shoulder arthroplasty appears intact. No lucencies are seen arou nd the orthopedic hardware. 2. Within the limits of the examination, no acute fracture is identified. 3. 1.8 x 4.9 x 10 cm fluid collection superficial to the anterior deltoid. It is not well characteri zed due to artifact from the patient's orthopedic hardware. Ultrasound may be considered for further evaluation. Resolving hematoma or seroma should be considered. Abscess cannot be entirely excluded . RADIATION DOSE DELIVERED: 409.49mGy.cm Total DLP 409.49mGy.cm Total DLP DATA REPOSITORY: All CT scans at this facility are submitted to the National Radiology Data Registry (NRDR) Dose Index Registry (DIR) with the [employer] ([employer]). RADIATION OPTIMIZATION: All CT scans at this facility use at least one of these dose optimization te chniques: automated exposure control; mA and/or kV adjustment per patient size (includes targeted exa ms where dose is matched to clinical indication); or iterative reconstruction.
== END 2025-03-29 11:32 ==
LOC: DI 11:12
PROVIDERS: PCP Student in an Organized Health Care Education/Training Program; Visit Provider Student in an Organized Health Care Education/Training Program
DX: S43.005A Unspecified dislocation of left shoulder joint, initial encounter (principal); X58.XXXD Exposure to other specified factors, subsequent encounter; S46.012D Strain of muscle(s) and tendon(s) of the rotator cuff of left shoulder, subsequent encounter; Z47.1 Aftercare following joint replacement surgery; Z96.611 Presence of right artificial shoulder joint; M25.311 Other instability, right shoulder
CPT/HCPCS: 99214; 73200

== ENCOUNTER 2025-03-29 17:46 | Outpatient (REF) | payer MEDICARE, BC, SELFPAY ==
[2025-03-29 17:09] LABS: HCT 38.8 % (40.0-50.0); HGB 13.3 g/dL (13.5-17.5); MCH 30.8 pg (27.0-33.0); MCHC 34.3 % (32.0-36.0); MCV 90 fL (80-95); Platelet Count 392 10^3/uL (130-400); RBC 4.32 10^6/uL (4.36-5.78); RDW 12.9 % (11.8-14.1); RDW-SD 42.7 fL; WBC 9.75 10^3/uL (4.4-10.8)
[2025-03-29 17:10] LABS: ESR 4 mm/hr (0-20)
[2025-03-29 17:58] LABS: C-Reactive Protein < 0.50 mg/dL (<or=0.5)
== END 2025-03-29 17:47 | disposition home or self-care (01) ==
LOC: LBN 17:46
PROVIDERS: PCP Student in an Organized Health Care Education/Training Program; Visit Provider Student in an Organized Health Care Education/Training Program
DX: S43.005A Unspecified dislocation of left shoulder joint, initial encounter (principal); S46.012A Strain of muscle(s) and tendon(s) of the rotator cuff of left shoulder, initial encounter; Z96.9 Presence of functional implant, unspecified
CPT/HCPCS: 85027; 85652; 86140

== ENCOUNTER 2025-03-31 08:25 | Day surgery (SDC) | payer MEDICARE, BC, SELFPAY ==
[2025-03-31] VITALS (41 sets, daily range): BP systolic 89–134; BP diastolic 55–86; PULSE 61–80; RESP 12–26; TEMP 36.2–36.8; O2SAT 93–99; BMI 34.7
--- NOTE | 2025-03-31 07:17 | ROE_ITS ---
Operative Note Operative Note PRE-OP DIAGNOSIS: Left: 1. Recent left reverse TSA 2. Recurrent instability PROCEDURE: Left shoulder revision reverse total shoulder arthroplasty, CPT #71123, Partial components: glenosphere, humeral shell and liner SURGEON: Wesley Cavazos ASSISTING SURGEON: Baljinder Underwood ANESTHESIA TYPE: Local By Surgeon, General LMA/ETT and Primary Nerve Block Refer to Anesthesia Record ESTIMATED BLOOD LOSS: 75 COMPLICATIONS: None Patient was transported to: same day Patient's condition: stable Implants: [employer] shoulder system Small modular baseplate with 30 mm central screw 30, 20, and 15 mm peripheral locking screws 40 mm +4 mm glenosphere -> changed to 40 mm +8 mm glenosphere Large short length stem +8 mm humeral shell and +0 mm liner -> changed to +8 mm humeral shell and +4 mm retentive liner Indications: See medical record for details Findings: Moderate anterior shoulder replacement instability in abduction with moderately significant anterior humeral translation, neutral forearm rotation, and full supination. Largely subluxation and self?reduction. No other position of instability. Well-healing component?bone interface. No loosening. No signs of infection. Procedure Description: In the operating room, general anesthesia was induced. The patient was positioned beachchair on the operative table. Preoperative antibiotics were omitted. The correct patient, procedure, and side of the procedure were all verified prior to beginning. Left shoulder was thoroughly examined under anesthesia demonstrating moderate instability in a single position with the elbow at the patient's side, neutral forearm rotation, full supination, and moderately significant direct anterior humeral translation with definite subluxation and self reduction of the shoulder replacement. More challenging to force into dislocated position and to keep dislocated. No other position of instability. The left shoulder was prepped and draped in the usual sterile fashion. The pre- existing deltopectoral incision was preinjected with 0.25% bupivacaine with epinephrine and then reopened to approach the shoulder replacement. There was a small to moderate fluid collection, which seemed to be bruising about the pectoralis major muscle and to a lesser extent the deltoid likely from a combination of instability/dislocation and postoperative state. It was readily irrigated away and there were no concerning signs of infection. Remainder of the tissues appeared healthy and intact. The shoulder reverse replacement was dislocated in external rotation and adduction. The +0 mm humeral liner was removed from the humeral shell. A trial +4 mm humeral liner was inserted into the existing +8 mm tray for total of +12 mm. The shoulder was reduced and taken through motion. There was still moderate instability so the trial liner was changed to the +4 mm retained liner, which had mostly adequate stability, but the joint could still be dislocated with moderate to significant anterior force in the position of vulnerability, which was not felt to be appropriate given the revision for instability setting. The trial liner was removed. The shell was dissociated from the humeral stem with the extractor screwdriver and removed. The humeral stem was inspected and healing well into the bone and intact without any issues at the bone metal interface and solid stability on testing. The glenosphere was exposed and it setscrew unlocked but kept in place. The glenosp here extractor was then used to dissociate the glenosphere from the baseplate, and then it was removed. The baseplate also had good healing and solid stability on testing. There was a small amount of fibrinous material about the shoulder, which was removed. With the component out of the way, the shoulder was thoroughly irrigated with Betadine and then the Betadine washed out with saline ensuring a very clean and healthy appearing shoulder before placing new components. Gloves were changed. Although there were no imaging findings, lab work results, or surgery findings consistent with infection, the removed metal and plastic components were sent to the lab for culture in case there was also an indolent cutibacterium acnes infection given the shoulder multiple revision setting. The specimens were as follows humeral liner #1, humeral shell #2, and glenosphere with setscrew #3. A +8 mm lateralized glenosphere was then inserted, engaged to the baseplate, completely impacted, and then locked in place to the baseplate with the setscrew. Trialing was then done starting with +8 mm construct and going up to +12 mm with to achieve good stability and tension with a regular liner. The final +8 mm shell placed and impacted. The final +4 mm liner was placed, retentive liner chosen due to devoid rotator cuff and instability, shoulder reduced, and it confidently demonstrated excellent stability with essentially complete inability to be dislocated. Tension and range of motion were appropriate. The shoulder was copiously irrigated with Betadine and normal saline again. Vancomycin powder was distributed deeply about the shoulder and through subcutaneous tissues. The deltopectoral interval was well-approximated. Subcutaneous tissue was irrigated then closed using 2-0 Monocryl in a buried interrupted fashion. Skin was closed using 3-0 Monocryl in a buried subcuticular fashion. Skin glue was applied to the incision. A silver impregnated bandage was placed over the incision. The extremity was placed into a shoulder immobilizer. The patient awoke from anesthesia without complication and was taken to the recovery room in stable condition. Date of Procedure: 03/31/25
--- NOTE | 2025-03-31 09:43 | ANES.PREOP_ITS ---
General Info Date of Service Date Performed: 03/31/25 Height: 5 ft 10 in Weight: 109.6 kg Body Mass Index (BMI): 34.7 Surgical Procedure: Operation Date: 03/31/25 10:55 Proposed Procedure Side Surgeon p Shoulder Revision Total Arthroplasty Left Wesley Cavazos MD Meds Allergies and Home Medications Allergies Allergy/AdvReac Type Severity Reaction Status Date / Time Penicillins Allergy Intermediate rash Verified 03/31/25 08:52 Home Medication ?Medication ?Instructions ?Recorded inhalational spacing device #1 ea 09/16/20 (Flexichamber spacer) albuterol sulfate 90 mcg/actuation 2 puff inhalation QID PRN 04/12/21 aerosol inhaler shortness of breath #18 grams turmeric 400 mg capsule See Rx Instructions PO DAILY 04/17/21 fluticasone propionate 50 1 spray .Route .COMPLEX #16 grams 06/26/22 mcg/actuation nasal spray,suspension ondansetron HCl 4 mg tablet 4 mg PO TID PRN nausea and 09/10/23 vomiting #30 tabs diclofenac sodium 1 % topical gel 2 g topical QID PRN pain #100 grams 10/11/23 cyclobenzaprine 5 mg tablet 10 mg (2 x 5 mg) PO TID muscle 12/19/23 spasm #90 tabs hydrochlorothiazide 25 mg tablet 25 mg PO DAILY #90 tabs 07/25/24 esomeprazole magnesium 20 mg 40 mg (2 x 20 mg) PO DAILY #180 09/08/24 tablet,delayed release (Nexium tabs 24HR) venlafaxine 75 mg tablet,extended 225 mg (3 x 75 mg) PO DAILY #270 10/24/24 release 24 hr tabs amlodipine 10 mg tablet See Rx Instructions .Route 11/02/24 .COMPLEX #90 tabs loratadine 10 mg tablet See Rx Instructions .Route 11/16/24 .COMPLEX #90 tabs losartan 50 mg tablet 50 mg PO BID #180 tabs 11/16/24 sucralfate 1 gram tablet See Rx Instructions .Route 11/18/24 .COMPLEX #20 tabs atorvastatin 20 mg tablet See Rx Instructions .Route 02/18/25 .COMPLEX #90 tabs sildenafil 100 mg tablet See Rx Instructions .Route 02/18/25 .COMPLEX #12 tabs naproxen 250 mg tablet 250 - 500 mg (1 - 2 x 250 mg) PO 03/10/25 BID PRN Moderate pain #40 tabs acetaminophen 500 mg tablet 500 mg PO ONCE 03/31/25 (Acetaminophen Extra Strength) doxycycline hyclate 100 mg capsule mg 03/31/25 Current Visit Medications: Current Medications Generic Name Dose Route Start Last Admin Trade Name Freq PRN Reason Stop Dose Admin Acetaminophen 1,000 mg 03/31/25 07:09 Acetaminophen 500 Mg Tab PO Q6H PRN PRN Aspirin 81 mg 04/01/25 09:00 Aspirin E.C. 81 Mg Tabec PO DAILY FADIA Diphenhydramine HCl 25 mg 03/31/25 07:09 Diphenhydramine 25 Mg Cap PO Q6H PRN PRN insomnia, itchiness, or rash Docusate Sodium 100 mg 03/31/25 07:09 Docusate Sodium 100 Mg Cap PO BID PRN PRN Ringer's Solution 1,000 mls @ 30 mls/hr 03/31/25 06:00 IV 03/31/25 23:59 INFUSION FADIA Cefazolin Sodium/Dextrose 2 gm in 50 mls @ 100 mls/hr 03/31/25 06:00 Ancef Duplex IVPB 03/31/25 23:59 PREOP FADIA Tranexamic Acid/Sodium Chloride 1,000 mg in 100 mls @ 600 mls/hr 03/31/25 06:00 IVPB 03/31/25 23:59 PREOP FADIA Ondansetron HCl 4 mg/ Sodium 52 mls @ 200 mls/hr 03/31/25 07:09 Chloride IVPB Q6H PRN PRN Cefazolin Sodium/Dextrose 1 gm in 50 mls @ 100 mls/hr 03/31/25 15:00 Ancef Duplex IVPB 04/01/25 07:29 Q8H FADIA IV Miscellaneous Supplies 1 each 03/31/25 06:00 Iv Access IV 03/31/25 23:59 DIRECTED FADIA Morphine Sulfate 2 - 4 mg 03/31/25 07:09 Morphine 10 Mg/Ml Vial IVP Q2H PRN PRN Naproxen 250 - 500 mg 03/31/25 07:09 Naproxen 250 Mg Tab PO BID PRN PRN for moderate to severe pain Oxycodone HCl 5 - 10 mg 03/31/25 07:09 Oxycodone 5 Mg Tab PO Q4H PRN PRN for moderate to severe pain Sodium Chloride 0 ml 03/31/25 06:00 Normal Saline Flush 10 Ml Syr IV 03/31/25 23:59 PRN PRN Sodium Chloride 0 ml 03/31/25 06:00 Normal Saline 10 Ml Vial IJ 03/31/25 23:59 DIRECTED PRN Sterile Water 0 ml 03/31/25 06:00 Water,Injection,Sterile 10 Ml Vial IJ 03/31/25 23:59 DIRECTED PRN PFSH Active Problems Active Problems: Problem Status Onset Code Dislocation of left shoulder joint Acute S43.005A Presence of retained hardware Acute Z96.9 Traumatic tear of left rotator cuff Acute S46.012A Post-traumatic osteoarthritis, right hand Acute ~10/19/24 M19.141 Right wrist pain Acute M25.531 Polyarthralgia Acute M25.50 New onset right bundle branch block (RBBB) Acute I45.10 Radiculopathy affecting upper extremity Acute M54.10 Cervical nerve root impingement Acute G54.2 Neck pain with history of cervical spinal surgery Acute M54.2, Z98.890 Cervical radiculopathy Acute M54.12 Tubular adenoma of colon Acute ~09/2023 D12.6 Excessive cerumen in both ear canals Acute H61.23 Screening for colorectal cancer Acute Z12.11, Z12.12 Impacted cerumen of left ear Acute H61.22 Stressful life event affecting family Acute Z63.79 Muscle strain, shoulder region Acute S46.919A Muscles tire easily Acute M62.89 Neck muscle strain Acute S16.1XXA COVID Acute ~08/18/23 U07.1 Degenerative arthritis of metacarpophalangeal joint of middle finger of right hand Acute ~03/19/23 M19.041 Ketogenic diet Acute Z78.9 Gastroparesis Chronic 09/29/13 K31.84 Gastric outlet obstruction Chronic 09/29/13 K31.1 Trigger finger, right middle finger Acute M65.331 Abdominal pain Acute 09/03/13 R10.9 Rotator cuff tear, right Acute M75.101 Pharyngeal dysphagia Acute R13.13 Impingement syndrome of left shoulder Acute M75.42 Gastroesophageal reflux disease without esophagitis Acute K21.9 Schatzki's ring Chronic K22.2 Right thyroid nodule Acute E04.1 Pharyngoesophageal dysphagia Acute R13.14 Cervicalgia Acute M54.2 Throat discomfort Acute R07.0 Nausea Chronic R11.0 Osteoarthritis of left AC (acromioclavicular) joint Acute M19.012 Tendinitis of long head of biceps brachii of left shoulder Acute M75.22 Left rotator cuff tear Acute M75.102 Dysphagia Acute R13.10 Thyroid nodule greater than or equal to 1 cm in diameter incidentally noted on imaging study Acute E04.1 Posterior subcapsular age-related cataract of left eye Resolved H25.042 Nuclear sclerotic cataract of left eye Resolved H25.12 Posterior subcapsular age-related cataract, right eye Resolved H25.041 Nuclear sclerotic cataract of right eye Resolved H25.11 Cubital tunnel syndrome on left Acute G56.22 Hiatal hernia Chronic K44.9 Degenerative joint disease of spine Chronic M47.9 Seasonal allergies Chronic J30.2 Reactive airway disease Chronic J45.909 Hypertension Chronic I10 Muscle spasms of neck Chronic M62.838 Hypogonadism Chronic [id number] Acne Acute 12/13/11 L70.9 Ankle edema Acute 12/13/11 M25.473 Disorder of function of stomach Acute 05/01/12 K31.9 Diverticulitis of colon Acute 12/13/11 K57.32 Headache Acute 12/13/11 R51 Hyperlipidemia Acute 03/17/01 E78.5 Lumbago Acute 12/13/11 M54.5 Midline low back pain without sciatica Acute 12/13/11 M54.5 Mucous cyst of finger Acute 12/11/15 M67.449 Osteoarthrosis-multiple sites Acute 12/13/11 M15.9 Pain in upper limb Acute 11/08/13 M79.603 Spondylosis of cervical region without myelopathy or radiculopathy Acute 06/17/16 M47.812 Testicular hypofunction Acute 01/11/09 E29.1 Urinary frequency Acute 04/16/16 R35.0 Precancerous lesion Acute 12/13/11 D49.9 Skin lesion Acute L98.9 Duodenal ulcer disease Acute 12/13/11 K26.9 Cubital tunnel syndrome on right Acute G56.21 Carpal tunnel syndrome of right wrist Acute G56.01 Chronic cough Acute R05 Chronic rhinitis Acute J31.0 Post-nasal drip Acute R09.82 Stopped smoking with greater than 30 pack year history Acute Z87.891 Hyperplastic colon polyp Acute K63.5 Sessile colonic polyp Acute K63.5 Carpal tunnel syndrome, left Acute G56.02 Bursitis of left shoulder Acute M75.52 Wrist pain, left Acute M25.532 Depression Chronic F32.9 Medical History Medical History History of esophageal dilatation (06/28/21[facility] Peptic ulcer disease (08/17/02) Obesity (03/17/01) Hypertension (05/26/09) Precancerous skin lesion (11/14/10) lower lip Tear of PCL (posterior cruciate ligament) of knee (03/30/14) Hypogonadism, male (11/20/05) Hyperplastic polyp of large intestine (09/17/06) Degenerative joint disease (04/12/09) 04/11/17 Sacroiliac joint injection[facility] ACL tear (03/30/14) Hyperlipidemia (03/17/01) Head ache (03/17/01) Diverticula of colon (12/28/09) Acne (04/12/09) Erectile dysfunction (11/20/05) Low back pain (04/24/09) 02/07/17 [facility] lumbar spondylosis History of peptic ulcer disease Gastric Erythema per EGD, 06/2021. H.pyl, NEG. With gastric ulcer identified in 2001. He has been on b.,i.d. proton pump inhibitor since then. He is followed by [facility] gastroenterology. Surgical History Surgical History History of reverse total replacement of left shoulder joint History of back surgery (01/19/24) C7-T1 Foraminotomy at [facility] Hx of surgical procedure UVNN: C4-5 ACDF (2018) .. L5-S1 Fusion (2019), w/ re-op for CSF leak repair. History of colonoscopy (~09/2023) Path sent History of esophagogastroduodenoscopy (EGD) (06/28/21) with biopsy KRISTINE Laurent H/O arthroscopy of right knee partial lateral meniscectomy Postoperative CSF leak repair 07/30/19 Amy Marrero Day following lumbar surgery on 07/26/19 tooth extraction (10/01/09) upper teeth perianal fistula repair (09/25/10) left elbow fasciotomy (04/23/07) elbow repair right (09/17/07) disc repair L4-5 (04/18/00) Dr Olson cubital/carpal tunnel release (11/03/14) R side Dr Walker Vasectomy (04/28/07) Right small ginfer cyst (05/01/16) [place] Repair of umbilical hernia (08/31/10) Cholecystectomy (11/12/06) Lap [facility] Arthroplasty of knee () partial lateral meniscectomy Tobacco Smoking/Tobacco Use Status: Former Tobacco Use Passive smoking exposure: No Second hand exposure: No Alcohol Alcohol Intake: former Counseling provided: none Substance Use Substance use: Never Substance use type: does not use Counseling provided: none Vital Signs and Lab Results Vital Signs Most Recent Vital Signs in EMR: Most Recent Vital Signs Temp Pulse Resp BP Pulse Ox 36.3 C L 70 16 124/78 97 03/31/25 09:01 03/31/25 09:01 03/31/25 09:01 03/31/25 09:01 03/31/25 09:01 Lab Results Blood Type / Crossmatch: No Data to Display Complete Blood Count: White Blood Count 9.75 10^3/uL (4.4-10.8) 03/29/25 15:52 Red Blood Count 4.32 10^6/uL (4.36-5.78) L 03/29/25 15:52 Hemoglobin 13.3 g/dL (13.5-17.5) L 03/29/25 15:52 Hematocrit 38.8 % (40.0-50.0) L 03/29/25 15:52 Platelet Count 392 10^3/uL (130-400) 03/29/25 15:52 Complete Metabolic Panel: C-Reactive Protein < 0.50 mg/dL (<or=0.5) 03/29/25 15:52 Liver Function Panel: No Data to Display Coagulation Panel: No Data to Display Cardiac Panel: No Data to Display Arterial Blood Gas: No Data to Display Venous Blood Gas: No Data to Display Pancreas Panel: No Data to Display Thyroid Panel: No Data to Display Infectious Disease: No Data to Display Blood Cultures: No Data to Display Toxicology Panel: No Data to Display Imaging and Studies Imaging and Studies Study information below may be from another EMR and interpreted by another provider. Please see original notes in EMR for more complete details. EKG Summary: 01/12/24: Exam: Resting ECG Reason for Exam: Preoperative evaluation Patient Location: O HR:69 bpm ECG Measurements Heart Rate 69 AXIS MS 193 P 50 QRSd 146 QRS -52 QT 437 T9 QTc 469 Conclusion Sinus rhythm...normal P axis, V-rate 50- 99 Probable left atrial enlargement...P >50mS, <-0.10mV V1 RBBB and LAFB...QRSd >120mS, axis(-40,240) Echocardiogram Summary: 02/2021: LVEF 60%trace TR and MR. mild dilated ascending Ao 3.68 cm. Anesthesia Assessment and Plan Anesthesia History Personal History: No History of Anesthesia Complications Family History: No Family History of Anesthesia Complications Exercise Tolerance Exercise Tolerance: Metabolic Equivalents>4 Pertinent Negatives Pertinent Negatives: No History of CVA/TIA Cardiac & Pulmonary Exam Cardiac Exam: Normal S1/S2 Heart Sounds Pulmonary Exam: Clear Bilateral Breath Sounds and No cough or Cold Implantable Cardiac Device Does patient have a Pacemaker or an ICD?: No Airway Exam Known Difficult Airway: No Mallampati Class: 2 Mouth Opening: Normal (> 3cm) Thyromental Distance: Greater than 3 cm Neck Range of Motion: Limited ROM, History of Cervical Fusion and Known Cervical Instability or radiculopathy Neck Circumference: Thick Teeth Condition: Edentulous ASA Classification ASA Score: ASA 3 Emergency Case?: No NPO Status NPO Status: NPO Clears >2 hours, Solids >8 hours Anesthesia Plan Resuscitation Status: Full Code Anesthesia Technique: General Anesthesia Airway Planned: Endotracheal Tube Pain Management: Surgeon and patient request nerve block Monitors Used: Standard Monitors and SedLine
[2025-03-31] MEDS: Lactated Ringers 1,000 ML 30 ML IV (09:45)
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
--- NOTE | 2025-03-31 10:45 | ANES.NERVE_ITS ---
Nerve Block Single Injection Procedure Date and Time Date Performed: 03/31/25 Procedure Start: 10:27 Location Where Procedure Performed Procedure Location: Day Surgery Unit Reason Performed: Postoperative Analgesia Requesting Provider: Wesley Cavazos Timeout Performed Timeout Performed: Yes Monitoring Used ECG, Blood Pressure and SpO2 Sterility Sterility: Hand Hygiene, Surgical Cap, Surgical Mask, Sterile Gloves and Chlorhexidine Sedation Given During Procedure Sedation Given (Indicate Dose Given): Versed IV Dose:: 2 mg Patient Mental Status Patient Mental Status: Sedate with meaningful communication Nerve Block 1st Nerve Block: Laterality: Left Block Type: Interscalene Ultrasound Image Saved?: Yes Needle / Catheter Used: 100mm SonoPlex II Local Anesthetic Bolus (Indicate Dose Given): Lidocaine used for local infiltration of skin, Injected in 3-5ml increments after negative blood aspiration, Bupivacaine 0.5% Dose:: 6.5 ml and Exparel Dose:: 6.5 ml Additives (Indicate Dose Given): Normal Saline Ultrasound: Sterile probe cover and gel used Nerve Stimulator: Supplement to Ultrasound use and No twitch or parasthesia noted < 0.5 mA Paresthesia: None Procedure Tolerated: No Complications and Patient tolerated well Procedure Outcome: Successful Performed By: Augustin Booth 2nd Nerve Block: Laterality: Left Block Type: Superficial Cervical Plexus Ultrasound Image Saved?: Yes Needle / Catheter Used: 100mm SonoPlex II Local Anesthetic Bolus (Indicate Dose Given): Lidocaine used for local infiltration of skin, Injected in 3-5ml increments after negative blood aspiration, Bupivacaine 0.5% Dose:: 3.5 and Exparel Dose:: 3.5 Additives (Indicate Dose Given): Normal Saline Ultrasound: Sterile probe cover and gel used Nerve Stimulator: Supplement to Ultrasound use and No twitch or parasthe tremaine noted < 0.5 mA Paresthesia: None Procedure Tolerated: No Complications and Patient tolerated well Procedure Outcome: Successful Performed By: Augustin Booth
--- NOTE | 2025-03-31 10:59 | W.PM.DSUDISC ---
Date of service: 03/31/25 Discharge Plan Disposition Patient Disposition: Home Condition: Stable Discharge Details Admit Date/Time: 03/31/25 08:25 Admit Provider: Wesley Cavazos Attending Provider: Wesley Cavazos Primary Care Provider: Jaymie Ramirez Home Meds and New Rx's Prescriptions: New naproxen 250 mg tablet 250 - 500 mg PO BID PRN (Reason: Moderate pain) Qty: 40 0RF oxycodone 5 mg tablet 5 - 10 mg PO Q4H PRN (Reason: Moderate to severe pain) Qty: 16 0RF Continued turmeric 400 mg capsule See Rx Instructions PO DAILY Rx Instructions: 2000 PO daily; 2000 mg for inflammation EO 09/07/20 (DME) Flexichamber Spacer See Rx Instructions .ROUTE .MEDSUPPLY Qty: 1 0RF Rx Instructions: As directed ondansetron HCl 4 mg tablet 4 mg PO TID PRN (Reason: nausea and vomiting) Qty: 30 1RF albuterol sulfate 90 mcg/actuation HFA aerosol inhaler 2 puff IH QID PRN (Reason: shortness of breath) Qty: 18 1RF Rx Instructions: As best covered by insurance fluticasone propionate 50 mcg/actuation spray,suspension 1 spray .ROUTE .COMPLEX Qty: 16 1RF Rx Instructions: 1 spray in each nostril cyclobenzaprine 5 mg tablet 10 mg PO TID Qty: 90 1RF Rx Instructions: Trial increased scheduled dose, with monitoring for effects hydrochlorothiazide 25 mg tablet 25 mg PO DAILY Qty: 90 3RF Rx Instructions: Cont increased dose; Note 25mg tab. esomeprazole magnesium [Nexium 24HR] 20 mg tablet,delayed release (DR/EC) 40 mg PO DAILY Qty: 180 3RF venlafaxine 75 mg tablet extended release 24hr 225 mg PO DAILY Qty: 270 3RF Rx Instructions: Continue 225mg amlodipine 10 mg tablet See Rx Instructions .ROUTE .COMPLEX Qty: 90 3RF Dose Instruction: TAKE 1 TABLET BY MOUTH ONCE DAILY Rx Instructions: TAKE 1 TABLET BY MOUTH ONCE DAILY loratadine 10 mg tablet See Rx Instructions .ROUTE .COMPLEX Qty: 90 3RF Dose Instruction: TAKE ONE TABLET BY MOUTH EVERY DAY Rx Instructions: TAKE ONE TABLET BY MOUTH EVERY DAY losartan 50 mg tablet 50 mg PO BID Qty: 180 3RF Rx Instructions: NOTE NEW Rx! SO ONE tablet (50mg each) BID sucralfate 1 gram tablet See Rx Instructions .ROUTE .COMPLEX Qty: 20 0RF Dose Instruction: TAKE ONE TABLET BY MOUTH WITH MEALS AT BEDTIME Rx Instructions: TAKE ONE TABLET BY MOUTH WITH MEALS & AT BEDTIME PRN sildenafil 100 mg tablet See Rx Instructions .ROUTE .COMPLEX Qty: 12 3RF Dose Instruction: TAKE ONE TABLET BY MOUTH EVERY DAY NEEDED FOR SEXUAL ACTIVITY Rx Instructions: TAKE ONE TABLET BY MOUTH EVERY DAY NEEDED FOR SEXUAL ACTIVITY atorvastatin 20 mg tablet See Rx Instructions .ROUTE .COMPLEX Qty: 90 3RF Dose Instruction: TAKE ONE TABLET BY MOUTH EVERY DAY Rx Instructions: TAKE ONE TABLET BY MOUTH EVERY DAY naproxen 250 mg tablet 250 - 500 mg PO BID PRN (Reason: Moderate pain) Qty: 40 0RF doxycycline hyclate 100 mg capsule Patient Comments: TAKE ONE CAPSULE BY MOUTH TWICE A DAY TO PREVENT INFECTION FOR 14 DAYS USE DAILY PROBIOTIC OR YOGURT WHILE ON ANTIBIOTIC. Pt. reports he still has two days to take to complete the course acetaminophen [Acetaminophen Extra Strength] 500 mg tablet 500 mg PO ONCE Patient Comments: 1000 mg diclofenac sodium 1 % gel 2 g topical QID PRN (Reason: pain) Qty: 100 1RF Rx Instructions: apply to single elbow, wrist or hand; for hand includes palm/fingers/back of hand Discharge Instructions Additional Instructions: Surgery: Revision Left reverse total shoulder arthroplasty (increased glenosphere lateralization, thicker humeral shell, & retentive liner) 03/31/25; Primary Left reverse total shoulder arthroplasty with revision biceps tenodesis and removal of hardware 03/03/25 Activity: Do not lift anything heavier than a coffee. You should keep your arm at your side in a relatively neutral position at all times except for gentle range of motion exercises, physical therapy, and essential activities. You should use the sling whenever you are out of the house. At home it is best to remove the sling and rest the arm on a pillow at your side or support the operative side with your other hand. Keep your elbow in front or at your side?do not allow your elbow to travel behind your back. A physical therapy prescription will be sent electronically to start in about 3 weeks. STANDARD Reverse TSA Protocol based on original surgery date. Prescriptions: Naproxen 250 mg take 1 every 12 hours with a meal as needed for moderate pain Tramadol 50 mg take 1 every 8 hours as needed for severe pain You may use [id number] Tylenol (acetaminophen) as needed for mild pain. These pain medications may be taken all at once or in different combinations as needed. Also, recommend Colace (docusate) as a stool softener as surgery and pain medicine cause constipation. You may try bhhp-sxh-xtborfy diphenhydramine (Benadryl) 25-50 mg nightly as a sleep aid Dressings: Leave dressing in place until follow-up. Keep clean and dry at all times. No showers please. Follow-up: 10-[address] Cavazos You may take off the leg compression stockings this evening at home. You may also leave them on a few days longer if you have a history of leg swelling or edema. Please call the office during business hours with any questions or concerns. Let us know right away if you develop any redness, drainage, fevers, chest pain, or trouble breathing. Do not drink alcohol or drive for at least 24 hours after anesthesia. Stand Alone Forms: Anesthesia Discharge Inst., Anes.Nerve Block Instructions, Toby Kramer ([facility]) Activity:: Activity as Tolerated Equipment/Supplies:: No Equipment Needed Diet:: As Tolerated Discharge Orders Discharge Orders: Discharge Order (Routine); Ordered 03/31/25 Ordered By: Wesley Cavazos DS: Diagnosis Discharge Diagnosis (1) Instability of reverse total arthroplasty of left shoulder: Status: Acute
[2025-03-31] MEDS: ceFAZolin 2 GM/50 ML BAG IVPB (11:35)
[2025-03-31] MEDS: TRANEXAMIC ACID/SOD. CHL. 1,000 MG/100 ML BAG 600 MG IVPB (11:47)
[2025-03-31] MEDS: Vancomycin 1,000 MG VIAL 1000 MG (12:10)
[2025-03-31] MEDS: Bupivacaine 0.25% Pres-Free W/EPI 30 ML VIAL (12:12)
[2025-03-31] MEDS: ceFAZolin 1 GM/50 ML BAG (15:00)
[2025-03-31] MEDS: Normal Saline Flush 10 ML SYR IV (15:06)
--- NOTE | 2025-03-31 15:30 | DI.RAD_ITS ---
Exam(s) XR SHOULDER LT COMPLETE 2+V EXAM: XR SHOULDER LT COMPLETE 2+V CLINICAL HISTORY: True AP Scapular Y postop. TECHNIQUE: 2D digital imaging was performed. COMPARISON: CR XR SHOULDER LT COMPLETE 2+V from 03/28/[address] UPPER EXTREMITY LT WO from 03/29/2025 FINDINGS: Two views There is continued stable position alignment of the components of the left shoulder reverse prosthesi s. No fracture or loosening evident. No radiographic evidence of osteomyelitis. There is some gas in the soft tissues of the subacromial space, more so than 3 days ago. Correlation with time since s urgery recommended. There was no gas evident at this location on CT scan of 03/29/2025. Therefore m ay represent an infectious process. IMPRESSION: As above. Cannot exclude infectious process. DATA REPOSITORY: RADIATION DOSE DELIVERED:
[2025-03-31] MEDS: Lactobacillus Acidophilus CAP 1 CAP PO (15:45)
--- NOTE | 2025-03-31 16:12 | W.ANESPOSTOP ---
Postoperative Evaluation Date, Time and Location Date Performed: 03/31/25 Time Performed: 16:12 Patient Location: Day Surgery Unit Vital Signs Most Recent Imported Vital Signs: Most Recent Vital Signs Temp Pulse Resp BP Pulse Ox 36.8 C 74 16 120/65 96 03/31/25 15:23 03/31/25 15:23 03/31/25 15:23 03/31/25 15:23 03/31/25 15:23 Pain Score Most Recent Pain Score: Most Recent Pain Score Pain Level 0 03/31/25 15:23 Assessment Mental Status: Awake (Alert & Oriented to Patient Baseline) Airway and Respiratory Function: Patent airway with normal (patient baseline) respiratory exam Cardiovascular Function: Hemodynamically Stable Hydration Status: Adequately Hydrated Nausea & Vomiting: No Nausea or Vomiting Pain: Pt. Denies Any Pain Peripheral Nerve Block: Regional nerve block not resolved at time of post operative discharge
== END 2025-03-31 17:05 | disposition home or self-care (01) ==
LOC: PDS 10:51 → DSU 06-27 10:56
PROVIDERS: PCP Student in an Organized Health Care Education/Training Program; Visit Provider Student in an Organized Health Care Education/Training Program
PROC: 0RPK0JZ Removal of Synthetic Substitute from Left Shoulder Joint, Open Approach (ICD-10-PCS; CPT 23472; principal; 2025-03-31 10:45)
DX: T84.028A Dislocation of other internal joint prosthesis, initial encounter (principal); K31.1 Adult hypertrophic pyloric stenosis; Z96.612 Presence of left artificial shoulder joint; G89.18 Other acute postprocedural pain; M25.512 Pain in left shoulder; M19.141 Post-traumatic osteoarthritis, right hand; I45.10 Unspecified right bundle-branch block; M54.12 Radiculopathy, cervical region; K22.2 Esophageal obstruction; K31.84 Gastroparesis; K44.9 Diaphragmatic hernia without obstruction or gangrene; J45.909 Unspecified asthma, uncomplicated; I10 Essential (primary) hypertension; E78.5 Hyperlipidemia, unspecified; Z87.11 Personal history of peptic ulcer disease; Z79.899 Other long term (current) drug therapy
CPT/HCPCS: 23473; C1713; 64415; 64450; 73030; 87070; 87075; 87205; J0131; J0665; J0666; J0690; J1100; J1885; J2003; J2250; J2405; J2704; J3370

== ENCOUNTER 2025-04-12 13:34 | Outpatient (CLI) | payer MEDICARE, BC, SELFPAY ==
--- NOTE | 2025-04-12 11:35 | DI.RAD_ITS ---
Exam(s) XR SHOULDER LT COMPLETE 2+V EXAM: XR SHOULDER LT COMPLETE 2+V CLINICAL HISTORY: F/U LEFT REVISION RTSA. TECHNIQUE: 2D digital imaging was performed. COMPARISON: CR XR SHOULDER LT COMPLETE 2+V from 03/31/2025 FINDINGS: Two views Stable position alignment of the components of the reverse prosthesis. No fracture or loosening evid ent. IMPRESSION: Stable satisfactory appearance DATA REPOSITORY: RADIATION DOSE DELIVERED:
== END 2025-04-12 13:35 | disposition home or self-care (01) ==
LOC: DIORS 13:34
PROVIDERS: PCP Student in an Organized Health Care Education/Training Program; Referring Provider Student in an Organized Health Care Education/Training Program; Visit Provider Student in an Organized Health Care Education/Training Program
DX: Z47.89 Encounter for other orthopedic aftercare (principal); M25.512 Pain in left shoulder
CPT/HCPCS: 99024; 73030

== ENCOUNTER → 2025-04-20 07:51 | Outpatient (BNVA) | payer MEDICARE, BC, SELFPAY | PROVIDERS: PCP Student in an Organized Health Care Education/Training Program; Referring Provider Student in an Organized Health Care Education/Training Program; Visit Provider Student in an Organized Health Care Education/Training Program | DX: T84.028D Dislocation of other internal joint prosthesis, subsequent encounter (principal); S46.012D Strain of muscle(s) and tendon(s) of the rotator cuff of left shoulder, subsequent encounter | CPT/HCPCS: 99024 ==

== ENCOUNTER → 2025-04-26 08:50 | Outpatient (BNVA) | payer MEDICARE, BC, SELFPAY | PROVIDERS: PCP Student in an Organized Health Care Education/Training Program; Referring Provider Student in an Organized Health Care Education/Training Program; Visit Provider Student in an Organized Health Care Education/Training Program | DX: T84.028D Dislocation of other internal joint prosthesis, subsequent encounter (principal); S46.012D Strain of muscle(s) and tendon(s) of the rotator cuff of left shoulder, subsequent encounter; X58.XXXD Exposure to other specified factors, subsequent encounter | CPT/HCPCS: 99024 ==

== ENCOUNTER → 2025-05-04 07:54 | Outpatient (BNVA) | payer MEDICARE, BC, SELFPAY | PROVIDERS: PCP Student in an Organized Health Care Education/Training Program; Referring Provider Student in an Organized Health Care Education/Training Program; Visit Provider Student in an Organized Health Care Education/Training Program | DX: Z47.1 Aftercare following joint replacement surgery (principal); T84.028D Dislocation of other internal joint prosthesis, subsequent encounter; S46.012D Strain of muscle(s) and tendon(s) of the rotator cuff of left shoulder, subsequent encounter; X58.XXXD Exposure to other specified factors, subsequent encounter | CPT/HCPCS: 99024 ==

== ENCOUNTER 2025-06-08 08:18 | Outpatient (CLI) | payer MEDICARE, BC, SELFPAY ==
--- NOTE | 2025-06-08 08:00 | DI.RAD_ITS ---
Exam(s) XR SHOULDER LT COMPLETE 2+V EXAM: XR SHOULDER LT COMPLETE 2+V CLINICAL HISTORY: S/P REVERSE TSA. TECHNIQUE: 2D digital imaging was performed. Two images were obtained. Grashey and Y views were obtained. COMPARISON: No exams were available for comparison FINDINGS: BONES: There are stable post operative changes of a left reverse total shoulder arthroplasty present. No fracture or dislocation. JOINTS: The orthopedic hardware is in good position. No evidence of hardware loosening. SOFT TISSUE: Normal. IMPRESSION: Stable left reversed total shoulder arthroplasty. DATA REPOSITORY: RADIATION DOSE DELIVERED:
== END 2025-06-08 08:19 | disposition home or self-care (01) ==
LOC: DIORS 08:18
PROVIDERS: PCP Student in an Organized Health Care Education/Training Program; Referring Provider Student in an Organized Health Care Education/Training Program; Visit Provider Student in an Organized Health Care Education/Training Program
DX: T84.028A Dislocation of other internal joint prosthesis, initial encounter (principal); S46.012A Strain of muscle(s) and tendon(s) of the rotator cuff of left shoulder, initial encounter; Z96.612 Presence of left artificial shoulder joint
CPT/HCPCS: 99024; 73030

== ENCOUNTER 2025-06-14 08:34 | Outpatient (CLI) | payer MEDICARE, BC, SELFPAY ==
--- NOTE | 2025-06-14 08:00 | DI.RAD_ITS ---
Exam(s) XR SHOULDER LT COMPLETE 2+V EXAM: XR SHOULDER LT COMPLETE 2+V CLINICAL HISTORY: F/U LEFT RTSA. TECHNIQUE: 2D digital imaging was performed. COMPARISON: CR XR SHOULDER LT COMPLETE 2+V from 06/08/2025 FINDINGS: Two views: There is continued stable position alignment of the components of the left shoulder reverse prosthesis. No fracture or loosening evident. No evidence of osteomyelitis. IMPRESSION: Stable satisfactory appearance of the reverse prosthesis. DATA REPOSITORY: RADIATION DOSE DELIVERED:
== END 2025-06-14 08:35 | disposition home or self-care (01) ==
LOC: DIORS 08:34
PROVIDERS: PCP Student in an Organized Health Care Education/Training Program; Referring Provider Student in an Organized Health Care Education/Training Program; Visit Provider Physician Assistant
DX: S46.012D Strain of muscle(s) and tendon(s) of the rotator cuff of left shoulder, subsequent encounter (principal); T84.028D Dislocation of other internal joint prosthesis, subsequent encounter; Z96.612 Presence of left artificial shoulder joint; X58.XXXD Exposure to other specified factors, subsequent encounter
CPT/HCPCS: 99024; 73030

== ENCOUNTER 2025-06-15 10:06 | Outpatient (CLI) | payer MEDICARE, BC, SELFPAY ==
[2025-06-15 10:39] LABS: Calculated LDL 128 mg/dL (<100); Cholesterol 200 mg/dL (<200); HDL Cholesterol 47 mg/dL (>or=40); Triglyceride 126 mg/dL (<150); Vitamin B12 387 pg/mL (193-986)
[2025-06-15 19:27] LABS: PSA, Screening 0.4 ng/mL (<=4.5)
[2025-06-28 11:48] LABS: Testosterone, Free 78.8
== END 2025-06-15 10:07 | disposition home or self-care (01) ==
LOC: LBO 10:07
PROVIDERS: PCP Student in an Organized Health Care Education/Training Program; Visit Provider Nurse Practitioner Family
DX: E78.5 Hyperlipidemia, unspecified (principal); K31.84 Gastroparesis; Z12.5 Encounter for screening for malignant neoplasm of prostate
CPT/HCPCS: 36415; 80061; 84153; 84402; 84403; 82607

== ENCOUNTER 2025-06-27 04:46 | Outpatient (CLI) | payer MEDICARE, BC, SELFPAY ==
[2025-06-27] MEDS: Albuterol HFA 18 GM 200 PUFF INH IH (12:17)
[2025-06-27] MEDS: Inhaler, Assist Device 1 EACH MC (12:17)
[2025-06-27] MEDS: Methacholine 100 MG VIAL IH (12:17)
--- NOTE | 2025-06-27 14:39 | W.PFT ---
Date of service: 06/27/25 Time of Service: 10:04 Pulmonary Function Test Result Indications: Cough Impression 1. Good patient effort was noted. ATS standards for reproducibility were met. 2. Spirometry showed mild obstructive lung disease with an FEV1 of 85% (3.39 L) 3. At 2 mg/mL of methacholine, there was a 21% fall in FEV1 Conclusion: - mild obstructive lung disease - positive methacholine challenge test
== END 2025-06-27 04:47 | disposition home or self-care (01) ==
LOC: RT 04:46
PROVIDERS: PCP Nurse Practitioner Family; Visit Provider Internal Medicine Pulmonary Disease
DX: K31.84 Gastroparesis (principal); J44.9 Chronic obstructive pulmonary disease, unspecified
CPT/HCPCS: 94070; 94726; 94729; 95070; J7674

== ENCOUNTER 2025-07-13 01:08 | Outpatient (CLI) | payer MEDICARE, BC, SELFPAY ==
--- NOTE | 2025-07-13 08:10 | DI.CTLCSR_ITS ---
Exam(s) CT CHEST LUNG CANCER SCREEN EXAM: CT CHEST LUNG CANCER SCREEN CLINICAL HISTORY: Screening for lung cancer,h/o smoker, z87.891 TECHNIQUE: Imaging Protocol: Axial computed tomography images with coronal and sagittal reformatted images were created and reviewed. Lung Computer Aided Detection (CAD) was utilized. COMPARISON: CT CT CHEST LUNG CANCER SCREEN from 01/25/[address] CHEST LUNG CANCER SCREEN from 09/24/2022 FINDINGS: There is artifact from the patient's left shoulder replacement. Tracheobronchial tree: Patent where visualized. No bronchiectasis. Pulmonary parenchyma: No consolidation or dominant measurable mass. There is mild scarring seen in the right middle lobe and the left lingula. The small right minor perifissural nodule is unchanged. Lung Nodules: There are no suspicious pulmonary nodules. Mediastinum and Kelley: No dominant adenopathy or fluid collection. The esophagus is unremarkable.There is a large hiatal hernia. Thyroid gland: The small calcified nodule in the right lobe is unchanged. There is no follow-up recommended. Lymph nodes: Unremarkable. Pleura: No effusion or pneumothorax. Heart: The heart is not dilated. There is mild to moderate three-vessel coronary artery calcification. No pericardial effusion. Aorta: Thoracic aorta non-dilated.Atherosclerotic calcification is present. Upper abdomen: Unremarkable. Soft Tissues: Unremarkable. Bones: Within normal limits. IMPRESSION: There are no suspicious pulmonary nodules. Lung RADS Cat 1 - Negative: No nodules and definitely benign nodules Lung-RADS 1.0 CATEGORIES: Category 0 - Prior chest CT exam(s) being located for comparison. Category 1 - Annual screening in 12 months. No nodules or definitely benign nodules. Category 2 - Annual screening in 12 months. Benign appearance. Nodules with low likelihood of becoming active cancer. Category 3 - 6-month follow-up. Probably benign. Short-term follow-up suggested. Nodules with low likelihood of becoming active cancer. Category 4A - 3-month follow-up and CT/PET if >8 mm in size. Suspicious finding. Findings which require additional testing. Category 4B - Findings which require additional testing and tissue sampling. Suspicious finding. Category 4X - Category 3 or 4 nodules with additional features or imaging findings that increases the suspicion of malignancy. Modifier S- Potentially clinically significant finding. (Non lung cancer) RADIATION DOSE DELIVERED: 107.49mGy.cm Total DLP 107.49mGy.cmTotal DLP DATA REPOSITORY: All CT scans at this facility are submitted to the National Radiology Data Registry (NRDR) Dose Index Registry (DIR) with the [employer] ([employer]). RADIATION OPTIMIZATION: All CT scans at this facility use at least one of these dose optimization techniques: automated exposure control; mA and/or kV adjustment per patient size (includes targeted exams where dose is matched to clinical indication); or iterative reconstruction.
== END 2025-07-13 01:28 ==
LOC: DI 01:08
PROVIDERS: PCP Nurse Practitioner Family; Visit Provider Nurse Practitioner Family
DX: Z12.2 Encounter for screening for malignant neoplasm of respiratory organs (principal); Z87.891 Personal history of nicotine dependence
CPT/HCPCS: 71271; 99213; 73030

== ENCOUNTER 2025-07-13 12:01 | Outpatient (CLI) | payer MEDICARE, BC, SELFPAY ==
--- NOTE | 2025-07-13 09:48 | DI.RAD_ITS ---
Exam(s) XR SHOULDER LT COMPLETE 2+V EXAM: XR SHOULDER LT COMPLETE 2+V CLINICAL HISTORY: F/U LEFT RTSA. TECHNIQUE: 2D digital imaging was performed. Three images were obtained. Grashey, Y and axillary views were obtained. COMPARISON: CR XR SHOULDER LT COMPLETE 2+V from 06/14/2025 FINDINGS: BONES: There are stable post operative changes of a left reverse total shoulder arthroplasty present. No fracture or dislocation. JOINTS: The orthopedic hardware is in good position. No evidence of hardware loosening. SOFT TISSUE: Normal. IMPRESSION: Stable left reverse total shoulder arthroplasty. DATA REPOSITORY: RADIATION DOSE DELIVERED:
== END 2025-07-13 12:02 | disposition home or self-care (01) ==
LOC: DIORS 12:02
PROVIDERS: PCP Nurse Practitioner Family; Visit Provider Student in an Organized Health Care Education/Training Program
DX: T84.028A Dislocation of other internal joint prosthesis, initial encounter (principal); Z96.612 Presence of left artificial shoulder joint
CPT/HCPCS: 99213; 73030

== ENCOUNTER 2025-08-10 08:15 | Outpatient (CLI) | payer MEDICARE, BC, SELFPAY ==
--- NOTE | 2025-08-10 08:00 | DI.RAD_ITS ---
Exam(s) XR SHOULDER LT COMPLETE 2+V EXAM: XR SHOULDER LT COMPLETE 2+V CLINICAL HISTORY: F/U LEFT RTSA. TECHNIQUE: 2D digital imaging was performed. Two images were obtained. Grashey and Y views were obtained. COMPARISON: CR XR SHOULDER LT COMPLETE 2+V from 07/13/2025 FINDINGS: BONES: There are stable post operative changes of a left reverse total shoulder arthroplasty present. No fracture or dislocation. JOINTS: The orthopedic hardware is in good position. No evidence of hardware loosening. SOFT TISSUE: Normal. IMPRESSION: Stable left reverse total shoulder arthroplasty. DATA REPOSITORY: RADIATION DOSE DELIVERED:
== END 2025-08-10 08:16 | disposition home or self-care (01) ==
LOC: DIORS 08:15
PROVIDERS: PCP Nurse Practitioner Family; Referring Provider Student in an Organized Health Care Education/Training Program; Visit Provider Student in an Organized Health Care Education/Training Program
DX: S46.012D Strain of muscle(s) and tendon(s) of the rotator cuff of left shoulder, subsequent encounter (principal); T84.028D Dislocation of other internal joint prosthesis, subsequent encounter
CPT/HCPCS: 99213; 73030

== ENCOUNTER 2025-09-02 04:14 | Outpatient (CLI) | payer MEDICARE, BC, SELFPAY ==
[2025-09-02 10:14] LABS: Calculated LDL 127 mg/dL (<100); Cholesterol 195 mg/dL (<200); HDL Cholesterol 50 mg/dL (>or=40); Triglyceride 94 mg/dL (<150)
[2025-09-02 10:22] LABS: ALT 20 U/L (16-63); AST 16 U/L (15-37); Creatine Kinase 172 U/L (39-308)
== END 2025-09-02 04:15 | disposition home or self-care (01) ==
LOC: LBO 04:14
PROVIDERS: PCP Nurse Practitioner Family; Visit Provider Nurse Practitioner Family
DX: E78.5 Hyperlipidemia, unspecified (principal)
CPT/HCPCS: 36415; 80061; 82550; 84450; 84460

== ENCOUNTER 2025-10-14 02:19 | Outpatient (CLI) | payer MEDICARE, BC, SELFPAY ==
[2025-10-14 09:41] LABS: Cholesterol 184 mg/dL (<200); HDL Cholesterol 51 mg/dL (>40)
== END 2025-10-14 02:20 | disposition home or self-care (01) ==
LOC: LBO 02:19
PROVIDERS: PCP Nurse Practitioner Family; Referring Provider Nurse Practitioner Family; Visit Provider Nurse Practitioner Family
DX: E78.5 Hyperlipidemia, unspecified (principal)
CPT/HCPCS: 36415; 80061